=== PATIENT | female | born 1940 | race Caucasian/White ===

== ENCOUNTER → 2016-08-25 | Outpatient (CLI) | payer OTHER ==
[~2016-08-25] MED LIST: COLCPOW2 PO; CYCL1TAB18 PO; ESTR1TAB36 PO; FUR40T PO; GABA300C8 PO; HYDR500T13 PO; LABE100T PO; MAGN400T28 PO; NIFE30TA76 PO; OMEG875C PO; OMEP20CA5 PO; [UNRECOGNIZED DRUG - CODE] PO
[2016-08-25 13:07] LABS: Basophils # (auto) 0 uL; Basophils % (auto) 0.4 % (0.0-2.0); Eosinophils # (auto) 0.1 uL; Eosinophils % (auto) 1.6 % (0.0-7.0); Hematocrit 40.7 % (36.0-46.0); Hemoglobin 12.9 g/dL (12.2-16.2); Lymphocytes # (auto) 1.6 uL; Lymphocytes % (auto) 21.5 % (10.0-50.0); Mean Corpuscular Hemoglobin 29.4 pg (28.0-32.0); Mean Corpuscular Hgb Conc. 31.7 g/dL (32.0-36.0); Mean Corpuscular Volume 92.7 fL (80.0-100.0); Mean Platelet Volume 9.6 fL (7.4-10.4); Monocytes # (auto) 0.6 uL; Monocytes % (auto) 7.8 % (0.0-12.0); Neutrophils # (auto) 5.2 uL; Neutrophils % (auto) 68.7 % (37.0-80.0); Platelet Count (auto) 235 10^3/uL (140-450); Red Cell Distribution Width 13.7 % (11.6-16.0); White Blood Cell 7.6 10^3/uL (4.4-10.8)
[2016-08-25 13:32] LABS: Calcium 9.3 mg/dL (8.5-10.1); Potassium 3.7 mmol/L (3.5-5.1)
[2016-08-25 13:35] LABS: Albumin 3.9 g/dL (3.4-5.0)
[2016-08-25 13:37] LABS: Bilirubin, Total 0.2 mg/dL (0.2-1.0); Total Protein 7.6 g/dL (6.4-8.2)
[2016-08-25 14:31] LABS: Uric Acid 4.7 mg/dL (2.6-6.0)
== END | disposition home or self-care (01) ==
LOC: LAB 11:43
DX: I10 Essential (primary) hypertension (principal); M10.00 Idiopathic gout, unspecified site; M06.9 Rheumatoid arthritis, unspecified; D64.9 Anemia, unspecified; Z79.899 Other long term (current) drug therapy; M25.50 Pain in unspecified joint
CPT/HCPCS: 36415; 80053; 84550; 85025; 85652; 86141; 86200; 86431

== ENCOUNTER → 2016-09-06 | Outpatient (CLI) | payer OTHER ==
[~2016-09-06] VITALS: Ht 165.1 cm; Wt 68.0 kg
[~2016-09-06] MED LIST changes: +ADENOSINE 57 MG in GIVE UN-DILUTED 0 ML IV ONE
== END | disposition home or self-care (01) ==
LOC: XY 08:32
PROVIDERS: ATTEND Internal Medicine Cardiovascular Disease
DX: Z01.818 Encounter for other preprocedural examination (principal); I11.9 Hypertensive heart disease without heart failure; I34.2 Nonrheumatic mitral (valve) stenosis; I35.0 Nonrheumatic aortic (valve) stenosis; I34.0 Nonrheumatic mitral (valve) insufficiency; I07.1 Rheumatic tricuspid insufficiency; I31.3 Pericardial effusion (noninflammatory); I35.8 Other nonrheumatic aortic valve disorders
CPT/HCPCS: 78452; 93017; 93306; A9500; J0153

== ENCOUNTER → 2016-09-30 | Outpatient (CLI) | payer OTHER ==
[~2016-09-30] MED LIST changes: -ADENOSINE 57 MG in GIVE UN-DILUTED 0 ML IV ONE; +FEBU80TA PO; +HYDR-2651 PO
[2016-09-30 10:20] LABS: Basophils # (auto) 0 uL; Basophils % (auto) 0.6 % (0.0-2.0); Eosinophils # (auto) 0.2 uL; Eosinophils % (auto) 2.5 % (0.0-7.0); Hematocrit 35.6 % (36.0-46.0); Hemoglobin 11.8 g/dL (12.2-16.2); Lymphocytes # (auto) 1.6 uL; Lymphocytes % (auto) 21.6 % (10.0-50.0); Mean Corpuscular Hemoglobin 30.7 pg (28.0-32.0); Mean Corpuscular Hgb Conc. 33.2 g/dL (32.0-36.0); Mean Corpuscular Volume 92.5 fL (80.0-100.0); Mean Platelet Volume 9.6 fL (7.4-10.4); Monocytes # (auto) 0.7 uL; Monocytes % (auto) 8.7 % (0.0-12.0); Neutrophils % (auto) 66.6 % (37.0-80.0); Platelet Count (auto) 212 10^3/uL (140-450); Red Cell Distribution Width 14.1 % (11.6-16.0); White Blood Cell 7.5 10^3/uL (4.4-10.8)
[2016-09-30 10:31] LABS: BUN/Creatinine Ratio 16.9; Bilirubin, Total 0.4 mg/dL (0.2-1.0); Calcium 8.5 mg/dL (8.5-10.1); Potassium 3.9 mmol/L (3.5-5.1); Total Protein 7.2 g/dL (6.4-8.2)
[2016-09-30 10:43] LABS: Urine RBC <1 /hpf (0 - 4); Urine Squamous Epithelial Cell FEW /hpf (<5)
[2016-09-30 11:10] LABS: Urine Bilirubin Negative (Negative); Urine Blood Negative /uL (Negative); Urine Color Yellow (Yellow); Urine Glucose Normal (Normal); Urine Ketone Negative (Negative); Urine Nitrite Negative (Negative); Urine Urobilinogen Normal (Negative); Urine pH 5.5 (5.0-8.0)
[2016-09-30 12:22] LABS: INR 1.03 (0.9-1.15); Partial Thromboplastin Time 24.9 sec (22.64-33.71); Prothrombin Time 10.6 sec (9.37-12.3)
== END | disposition home or self-care (01) ==
LOC: LAB 08:57
PROVIDERS: ATTEND Surgery
DX: C50.911 Malignant neoplasm of unspecified site of right female breast (principal); R79.1 Abnormal coagulation profile
CPT/HCPCS: 36415; 80053; 81001; 85025; 85610; 85730

== ENCOUNTER 2016-11-14 06:55 | Day surgery (SDC) | payer OTHER ==
[2016-11-11 10:27] LABS: Basophils # (auto) 0 uL; Basophils % (auto) 0.5 % (0.0-2.0); Eosinophils # (auto) 0.2 uL; Eosinophils % (auto) 2.2 % (0.0-7.0); Hematocrit 39.4 % (36.0-46.0); Hemoglobin 12.8 g/dL (12.2-16.2); Lymphocytes # (auto) 1.4 uL; Mean Corpuscular Hemoglobin 30.2 pg (28.0-32.0); Mean Corpuscular Hgb Conc. 32.5 g/dL (32.0-36.0); Mean Platelet Volume 9.3 fL (7.4-10.4); Monocytes # (auto) 0.7 uL; Monocytes % (auto) 9.1 % (0.0-12.0); Neutrophils # (auto) 5.4 uL; Neutrophils % (auto) 70.2 % (37.0-80.0); Platelet Count (auto) 241 10^3/uL (140-450); Red Cell Distribution Width 14.2 % (11.6-16.0); White Blood Cell 7.6 10^3/uL (4.4-10.8)
[2016-11-11 10:45] LABS: Urine Bilirubin Negative (Negative); Urine Blood Negative /uL (Negative); Urine Color Yellow (Yellow); Urine Glucose Normal (Normal); Urine Ketone Negative (Negative); Urine Nitrite Negative (Negative); Urine RBC 2 /hpf (0 - 4); Urine Squamous Epithelial Cell FEW /hpf (<5); Urine Urobilinogen Normal (Negative); Urine pH 6.5 (5.0-8.0)
[2016-11-11 10:50] LABS: Albumin 4.2 g/dL (3.4-5.0); BUN/Creatinine Ratio 20.9; Bilirubin, Total 0.4 mg/dL (0.2-1.0); Calcium 9.5 mg/dL (8.5-10.1); Potassium 3.9 mmol/L (3.5-5.1); Total Protein 7.6 g/dL (6.4-8.2)
[2016-11-11 10:52] LABS: INR 0.96 (0.9-1.15); Partial Thromboplastin Time 24.5 sec (22.64-33.71); Prothrombin Time 10.4 sec (9.37-12.3)
[~2016-11-14] VITALS: Ht 165.1 cm; Wt 68.0 kg
[~2016-11-14 06:55] MED LIST changes: +CHLO25TA22 PO; -CYCL1TAB18 PO; -ESTR1TAB36 PO; -FUR40T PO; +GABA-497 PO; -GABA300C8 PO; -NIFE30TA76 PO; -OMEG875C PO; -OMEP20CA5 PO; +OMEP20CA74 PO; -[UNRECOGNIZED DRUG - CODE] PO
[2016-11-14] MEDS ORDERED: ceFAZolin 1GM/50ML D5W 100 ML IV ONE (07:15)
[2016-11-14] MEDS ORDERED: fentaNYL CITRATE 100 MCG/2 ML VL ONE (07:53)
[2016-11-14] MEDS ORDERED: MIDAZOLAM HCL 1MG/1ML-2 ML VIAL ONE (07:53)
[2016-11-14] MEDS ORDERED: PROPOFOL 10 MG/ML 20 ML IV ONE (07:53)
[2016-11-14] MEDS ORDERED: SODIUM CHLORIDE LOCK 20 ML ONE (07:53)
[2016-11-14] MEDS ORDERED: ROCURONIUM 10MG/ML 10ML VIAL IV ONE (07:53)
[2016-11-14] MEDS ORDERED: MEPERIDINE HCL (50 MG/ML) 1 ML VIAL ONE (07:53)
[2016-11-14] MEDS: BUPIVACAINE 0.5% P/F INJ 10 ML VIAL ONE ×2 (09:17→09:52)
[2016-11-14] MEDS: LIDOCAINE 1% HCL (LOCAL ANESTH.) INJ 20ML MDV ONE ×2 (09:17→09:52)
[2016-11-14] MEDS ORDERED: METOCLOPRAMIDE HCL 5MG/ml INJ 2ml VIAL IV ONE (10:15)
[2016-11-14] MEDS ORDERED: KETOROLAC TROMETH 30 MG/ML 1ML VIAL IV ONE (10:15)
[2016-11-14] MEDS ORDERED: HYDROmorphone HCL 2 MG/ML VL IV PRN (10:15)
[2016-11-14 11:09] VITALS: BP 161/74
== END 2016-11-14 11:09 | disposition home or self-care (01) ==
LOC: SUR 06:55
PROVIDERS: ATTEND Surgery
DX: D05.11 Intraductal carcinoma in situ of right breast (principal); M19.90 Unspecified osteoarthritis, unspecified site; Z90.710 Acquired absence of both cervix and uterus; E89.0 Postprocedural hypothyroidism
CPT/HCPCS: 19301; 36415; 80053; 81001; 85025; 85610; 85730; 88307; J0690; J2001; J2175; J2250; J2704; J3010; J3490

== ENCOUNTER → 2017-04-19 | Outpatient (CLI) | payer OTHER ==
[2017-04-19 11:52] LABS: Basophils # (auto) 0 uL; Basophils % (auto) 0.5 % (0.0-2.0); Eosinophils # (auto) 0.1 uL; Eosinophils % (auto) 2.2 % (0.0-7.0); Hematocrit 37.5 % (36.0-46.0); Hemoglobin 12.7 g/dL (12.2-16.2); Lymphocytes # (auto) 0.7 uL; Lymphocytes % (auto) 10.8 % (10.0-50.0); Mean Corpuscular Hemoglobin 31.2 pg (28.0-32.0); Mean Corpuscular Hgb Conc. 33.8 g/dL (32.0-36.0); Mean Corpuscular Volume 92.5 fL (80.0-100.0); Mean Platelet Volume 8.3 fL (6.9-10.8); Monocytes # (auto) 0.6 uL; Monocytes % (auto) 9.6 % (0.0-12.0); Neutrophils % (auto) 76.9 % (37.0-80.0); Platelet Count (auto) 165 10^3/uL (140-450); Red Cell Distribution Width 13.5 % (11.8-14.3); White Blood Cell 6.5 10^3/uL (4.4-10.8)
[2017-04-19 12:17] LABS: Albumin 3.8 g/dL (3.4-5.0); BUN/Creatinine Ratio 24.4; Bilirubin, Total 0.4 mg/dL (0.2-1.0); Calcium 8.8 mg/dL (8.5-10.1); Potassium 3.9 mmol/L (3.5-5.1); Total Protein 7.3 g/dL (6.4-8.2)
== END | disposition home or self-care (01) ==
LOC: LAB 11:31
PROVIDERS: ATTEND Internal Medicine
DX: C50.411 Malignant neoplasm of upper-outer quadrant of right female breast (principal)
CPT/HCPCS: 36415; 80053; 83615; 85025

== ENCOUNTER → 2017-04-20 | Outpatient (CLI) | payer OTHER ==
[2017-04-20 10:52] LABS: BUN/Creatinine Ratio 24.8; Bilirubin, Total 0.4 mg/dL (0.2-1.0); Calcium 9.5 mg/dL (8.5-10.1); Magnesium 1.5 mg/dL (1.6-2.6); Phosphorus 3.4 mg/dL (2.5-4.90); Potassium 4.3 mmol/L (3.5-5.1); Total Protein 7.7 g/dL (6.4-8.2); Uric Acid 4.2 mg/dL (2.6-6.0)
== END | disposition home or self-care (01) ==
LOC: LAB 09:53
PROVIDERS: ATTEND Internal Medicine Nephrology
DX: I12.9 Hypertensive chronic kidney disease with stage 1 through stage 4 chronic kidney disease, or unspecified chronic kidney disease (principal); N18.3 Chronic kidney disease, stage 3 (moderate); D63.1 Anemia in chronic kidney disease; M10.9 Gout, unspecified; R80.9 Proteinuria, unspecified
CPT/HCPCS: 36415; 80053; 82043; 82570; 83735; 84100; 84550

== ENCOUNTER → 2017-06-22 | Outpatient (CLI) | payer OTHER ==
[~2017-06-22] MED LIST changes: -HYDR-2651 PO; +HYDR25TA35 PO
[2017-06-22 10:59] LABS: Basophils # (auto) 0 uL; Basophils % (auto) 0.7 % (0.0-2.0); Eosinophils # (auto) 0.3 uL; Eosinophils % (auto) 3.8 % (0.0-7.0); Hematocrit 39.4 % (36.0-46.0); Lymphocytes # (auto) 0.9 uL; Lymphocytes % (auto) 13.3 % (10.0-50.0); Mean Corpuscular Hemoglobin 30.9 pg (28.0-32.0); Mean Corpuscular Hgb Conc. 33.1 g/dL (32.0-36.0); Mean Corpuscular Volume 93.6 fL (80.0-100.0); Mean Platelet Volume 8.3 fL (6.9-10.8); Monocytes # (auto) 0.4 uL; Monocytes % (auto) 6.5 % (0.0-12.0); Neutrophils # (auto) 5.1 uL; Neutrophils % (auto) 75.7 % (37.0-80.0); Platelet Count (auto) 227 10^3/uL (140-450); White Blood Cell 6.7 10^3/uL (4.4-10.8)
[2017-06-22 11:22] LABS: Albumin 3.9 g/dL (3.4-5.0); BUN/Creatinine Ratio 22.8; Bilirubin, Total 0.3 mg/dL (0.2-1.0); Calcium 8.6 mg/dL (8.5-10.1); Total Protein 7.7 g/dL (6.4-8.2)
== END | disposition home or self-care (01) ==
LOC: LAB 10:25
DX: I10 Essential (primary) hypertension (principal); M06.9 Rheumatoid arthritis, unspecified; D64.9 Anemia, unspecified; Z79.899 Other long term (current) drug therapy
CPT/HCPCS: 36415; 80053; 85025; 85652; 86141

== ENCOUNTER → 2017-07-21 | Outpatient (CLI) | payer OTHER ==
[~2017-07-21] MED LIST changes: +CHOL20007 OR; +CHOL20009 PO; +CLON0.1T PO; +FEBU40TA PO; -GABA-497 PO; +GABA300C10 PO; +HYDR-4683 PO; +LETR2.5T PO; +MAGN400T5 PO; +OME20T PO
[2017-07-21 11:29] LABS: Basophils # (auto) 0 uL; Basophils % (auto) 0.4 % (0.0-2.0); Eosinophils # (auto) 0.2 uL; Eosinophils % (auto) 2.4 % (0.0-7.0); Hematocrit 38.3 % (36.0-46.0); Hemoglobin 12.8 g/dL (12.2-16.2); Lymphocytes # (auto) 0.9 uL; Lymphocytes % (auto) 10.7 % (10.0-50.0); Mean Corpuscular Hemoglobin 30.8 pg (28.0-32.0); Mean Corpuscular Hgb Conc. 33.3 g/dL (32.0-36.0); Mean Corpuscular Volume 92.6 fL (80.0-100.0); Monocytes # (auto) 0.6 uL; Monocytes % (auto) 7.3 % (0.0-12.0); Neutrophils # (auto) 6.9 uL; Neutrophils % (auto) 79.2 % (37.0-80.0); Platelet Count (auto) 197 10^3/uL (140-450); Red Blood Cells 4.14 10^6/uL (4.0-5.20); Red Cell Distribution Width 13.4 % (11.8-14.3); White Blood Cell 8.8 10^3/uL (4.4-10.8)
[2017-07-21 11:42] LABS: BUN/Creatinine Ratio 23.3; Bilirubin, Total 0.5 mg/dL (0.2-1.0); Calcium 9.5 mg/dL (8.5-10.1); Magnesium 1.2 mg/dL (1.6-2.6); Potassium 4.3 mmol/L (3.5-5.1); Total Protein 7.4 g/dL (6.4-8.2); Uric Acid 10.3 mg/dL (2.6-6.0)
== END | disposition home or self-care (01) ==
LOC: LAB 10:00
PROVIDERS: ATTEND Internal Medicine Nephrology
DX: C50.411 Malignant neoplasm of upper-outer quadrant of right female breast (principal); R80.9 Proteinuria, unspecified; I12.9 Hypertensive chronic kidney disease with stage 1 through stage 4 chronic kidney disease, or unspecified chronic kidney disease; N18.9 Chronic kidney disease, unspecified
CPT/HCPCS: 36415; 80053; 82043; 82570; 83615; 83735; 84550; 85025

== ENCOUNTER → 2017-08-10 | Outpatient (CLI) | payer OTHER | END | disposition home or self-care (01) | LOC: XY 09:32 | PROVIDERS: ATTEND Internal Medicine | DX: I73.9 Peripheral vascular disease, unspecified (principal) | CPT/HCPCS: 93923; 93925 ==

== ENCOUNTER → 2017-09-04 | Outpatient (CLI) | payer OTHER ==
[2017-09-04 12:34] LABS: Bilirubin, Total 0.5 mg/dL (0.2-1.0); Total Protein 7.6 g/dL (6.4-8.2)
== END | disposition home or self-care (01) ==
LOC: LAB 08:58
PROVIDERS: ATTEND Internal Medicine
DX: E11.22 Type 2 diabetes mellitus with diabetic chronic kidney disease (principal); N18.3 Chronic kidney disease, stage 3 (moderate)
CPT/HCPCS: 36415; 80053; 80061; 83036

== ENCOUNTER → 2017-09-05 | Outpatient (CLI) | payer OTHER | END | disposition home or self-care (01) | LOC: LAB 09:07 | PROVIDERS: ATTEND Internal Medicine | DX: K52.9 Noninfective gastroenteritis and colitis, unspecified (principal) | CPT/HCPCS: 36415; 82565; 84520 ==

== ENCOUNTER 2017-10-05 08:59 | Inpatient (IN) | payer OTHER ==
[2017-09-28 09:53] LABS: Basophils # (auto) 0 uL; Basophils % (auto) 0.5 % (0.0-2.0); Eosinophils # (auto) 0.1 uL; Eosinophils % (auto) 2.1 % (0.0-7.0); Hematocrit 39.9 % (36.0-46.0); Hemoglobin 13.2 g/dL (12.2-16.2); Lymphocytes # (auto) 0.9 uL; Lymphocytes % (auto) 13.2 % (10.0-50.0); Mean Corpuscular Hemoglobin 30.2 pg (28.0-32.0); Mean Corpuscular Hgb Conc. 33.2 g/dL (32.0-36.0); Mean Corpuscular Volume 91.1 fL (80.0-100.0); Monocytes # (auto) 0.5 uL; Monocytes % (auto) 7.8 % (0.0-12.0); Neutrophils % (auto) 76.4 % (37.0-80.0); Nucleated Red Blood Cells % 0.1 %; Platelet Count (auto) 222 10^3/uL (140-450); Red Blood Cells 4.38 10^6/uL (4.0-5.20); Red Cell Distribution Width 13.8 % (11.8-14.3); White Blood Cell 6.6 10^3/uL (4.4-10.8)
[2017-09-28 10:03] LABS: INR 0.99 (0.9-1.15); Prothrombin Time 10.8 sec (9.37-12.3)
[2017-09-28 10:16] LABS: BUN/Creatinine Ratio 24.3; Bilirubin, Total 0.4 mg/dL (0.2-1.0); Calcium 9.6 mg/dL (8.5-10.1); Total Protein 7.9 g/dL (6.4-8.2)
[2017-09-28 10:20] LABS: Urine Bacteria NONE SEEN /hpf (None Seen); Urine Blood Negative /uL (Negative); Urine Specific Gravity 1.017 (1.001-1.035); Urine WBC 2 /hpf (0 - 5)
[~2017-10-05] VITALS: Ht 165.1 cm; Wt 72.6 kg
[~2017-10-05 08:59] MED LIST changes: -CHOL20007 OR; -COLCPOW2 PO; -FEBU40TA PO; -HYDR-4683 PO; -MAGN400T5 PO; -OME20T PO
[2017-10-05] MEDS ORDERED: ONDANSETRON HCL 4 MG/2 ML VIAL ONE (09:05)
[2017-10-05] MEDS ORDERED: HYDROmorphone HCL 2 MG/ML VL ONE (09:05)
[2017-10-05] MEDS ORDERED: PROPOFOL 10 MG/ML 20 ML IV ONE (09:05)
[2017-10-05] MEDS ORDERED: ROCURONIUM 10MG/ML 10ML VIAL IV ONE (09:05)
[2017-10-05] MEDS ORDERED: ETOMIDATE (2MG/ML) 20ML VIAL IV ONE (09:05)
[2017-10-05] MEDS ORDERED: MIDAZOLAM HCL 1MG/1ML-2 ML VIAL ONE (09:05)
[2017-10-05] MEDS ORDERED: ceFOXitin 2GM/100ML 100 ML IV ONE (09:07)
[2017-10-05] MEDS ORDERED: BUPIVACAINE 0.25% INJ 50ML VIAL ONE (12:32)
[2017-10-05] MEDS ORDERED: MANNITOL FTV 25% 12.5 GM/50 ML 0 ML IV ONE (12:33)
[2017-10-05] MEDS ORDERED: fentaNYL CITRATE 10 ML ONE (12:41)
[2017-10-05] MEDS ORDERED: METOCLOPRAMIDE HCL 5MG/ml INJ 2ml VIAL IV ONE (14:00)
[2017-10-05] MEDS ORDERED: ACCU-CHEK COMFORT CURVE STRIP VI ONE (14:00)
[2017-10-05] MEDS ORDERED: MORPHINE SULFATE 4 MG/ML SYR/VIAL IV PRN (14:00)
[2017-10-05] MEDS ORDERED: NEOSTIGMINE 1 MG/ML INJ (10mg/10ML VIAL) ONE (14:25)
[2017-10-05] MEDS ORDERED: GLYCOPYRROLATE 0.2 MG/ML 1ML VIAL ONE (14:25)
[2017-10-05] MEDS ORDERED: ONDANSETRON HCL 4 MG/2 ML VIAL IV PRN (15:00)
[2017-10-05] MEDS ORDERED: ACETAMINOPHEN/CODEINE#3 (300/30mg) TAB PO PRN (15:00)
[2017-10-05] MEDS ORDERED: hydrALAZINE HCL 25 MG TAB PO ONE (15:00)
[2017-10-05] MEDS ORDERED: diphenhdrAMINE HCL 50 MG/1 ML VL IV PRN (15:00)
[2017-10-05] MEDS ORDERED: GABAPENTIN 300 MG CAP PO ONE (15:00)
[2017-10-05] MEDS ORDERED: PANTOPRAZOLE 40 MG TAB PO ONE (15:00)
[2017-10-05 16:45] VITALS: BP 159/75
[2017-10-05 17:01] VITALS: BP 159/75
[2017-10-05] MEDS: MORPHINE SULFATE 4 MG/ML SYR/VIAL IV PRN ×2 (17:13→21:22)
[2017-10-05] MEDS: D5W/SOD CHL 0.45% 1,000 ML IV SCH ×2 (17:15→23:33)
[2017-10-05 17:37] LABS: BUN/Creatinine Ratio 12.8; Calcium 8.7 mg/dL (8.5-10.1); Potassium 3.5 mmol/L (3.5-5.1)
[2017-10-05] MEDS: CEFOXITIN SODIUM 1 GM in D5W 5% 50 ML IV SCH (19:49)
[2017-10-05] MEDS ORDERED: TEMAZEPAM 15 MG CAP PO ONE (21:00)
[2017-10-05] MEDS: LABETALOL HCL 200 MG TAB PO SCH (21:29)
[2017-10-05] MEDS: MAGNESIUM OXIDE 400 MG TAB PO SCH (21:29)
[2017-10-05] MEDS: cloNIDine HCL 0.1 MG TAB PO SCH (21:30)
[2017-10-05] MEDS: hydrALAZINE HCL 25 MG TAB PO SCH (21:31)
[2017-10-05 21:41] VITALS: BP 192/79
[2017-10-05] MEDS: GABAPENTIN 300 MG CAP PO SCH (22:47)
[2017-10-05] MEDS: HYDROcodone-ACET 10/325MG TAB PO PRN (23:30)
[2017-10-06] MEDS: CEFOXITIN SODIUM 1 GM in D5W 5% 50 ML IV SCH ×2 (02:35→09:00)
[2017-10-06] MEDS: MORPHINE SULFATE 4 MG/ML SYR/VIAL IV PRN ×2 (02:35→11:57)
[2017-10-06 04:54] VITALS: BP 158/59
[2017-10-06] MEDS: GABAPENTIN 300 MG CAP PO SCH ×2 (06:33→13:54)
[2017-10-06] MEDS: D5W/SOD CHL 0.45% 1,000 ML IV SCH (06:34)
[2017-10-06] MEDS: hydrALAZINE HCL 25 MG TAB PO SCH ×2 (06:34→13:55)
[2017-10-06] MEDS: HYDROcodone-ACET 10/325MG TAB PO PRN (06:35)
[2017-10-06 08:45] VITALS: BP 164/73
[2017-10-06] MEDS: LABETALOL HCL 200 MG TAB PO SCH (09:16)
[2017-10-06] MEDS: MAGNESIUM OXIDE 400 MG TAB PO SCH (09:16)
[2017-10-06] MEDS: cloNIDine HCL 0.1 MG TAB PO SCH (09:16)
[2017-10-06] MEDS ORDERED: PANTOPRAZOLE 40 MG TAB PO SCH (10:00)
[2017-10-06] MEDS ORDERED: LETROZOLE PO SCH (10:00)
[2017-10-06 10:46] VITALS: BP 164/73
[2017-10-06 13:00] VITALS: BP 146/63
[2017-10-07] MEDS ORDERED: CHOL20007 OR (06:32)
[2017-10-07] MEDS ORDERED: GABA300C10 PO (06:32)
[2017-10-07] MEDS ORDERED: MAGN400T5 PO (06:32)
[2017-10-07] MEDS ORDERED: CLON0.1T PO (06:32)
[2017-10-07] MEDS ORDERED: HYDR25TA35 PO (06:32)
[2017-10-07] MEDS ORDERED: LABE100T PO (06:32)
[2017-10-07] MEDS ORDERED: FEBU80TA PO (06:32)
[2017-10-07] MEDS ORDERED: OME20T PO (06:32)
[2017-10-07] MEDS ORDERED: CHLO25TA22 PO (06:32)
[2017-10-07] MEDS ORDERED: LETR2.5T PO (06:32)
[2017-10-07] MEDS ORDERED: HYDR-4683 PO (06:32)
[2017-10-31] MEDS ORDERED: FEBU40TA PO (15:46)
[2017-10-31] MEDS ORDERED: HYDR-4683 PO (15:48)
== END 2017-10-06 14:10 | disposition home or self-care (01) | DRG 657 ==
LOC: SUR 08:59 → EAST 09:00
PROVIDERS: ADMIT Urology; ATTEND Urology
PROC: 8E0W3CZ Robotic Assisted Procedure of Trunk Region, Percutaneous Approach (ICD-10-PCS; 2017-10-05)
PROC: 07TC4ZZ Resection of Pelvis Lymphatic, Percutaneous Endoscopic Approach (ICD-10-PCS; 2017-10-05)
PROC: 0TT04ZZ Resection of Right Kidney, Percutaneous Endoscopic Approach (ICD-10-PCS; principal; 2017-10-05 12:52)
DX: C64.1 Malignant neoplasm of right kidney, except renal pelvis (principal); N18.4 Chronic kidney disease, stage 4 (severe); E78.5 Hyperlipidemia, unspecified; D64.9 Anemia, unspecified; M10.9 Gout, unspecified; I12.9 Hypertensive chronic kidney disease with stage 1 through stage 4 chronic kidney disease, or unspecified chronic kidney disease; M19.90 Unspecified osteoarthritis, unspecified site; Z85.3 Personal history of malignant neoplasm of breast
CPT/HCPCS: 36415; 80048; 80053; 81001; 85025; 85610; 85730; 86850; 86900; 86901; 87081; J0694; J2250; J2405; J2704; J3490; J7060

== ENCOUNTER 2017-10-06 19:49 | Inpatient (IN) | payer OTHER ==
[~2017-10-06] VITALS: Ht 160 cm; Wt 71.7 kg
[2017-10-06] MEDS ORDERED: SODIUM CHLORIDE 0.9% 1,000 ML IV ONE (20:17)
[2017-10-06] MEDS ORDERED: MORPHINE SULFATE 4 MG/ML SYR/VIAL IV ONE (20:30)
[2017-10-06] MEDS ORDERED: ONDANSETRON HCL 4 MG/2 ML VIAL IV ONE (20:30)
[2017-10-06 20:51] LABS: Basophils # (auto) 0 uL; Basophils % (auto) 0.2 % (0.0-2.0); Eosinophils # (auto) 0 uL; Eosinophils % (auto) 0.1 % (0.0-7.0); Hematocrit 33.9 % (36.0-46.0); Hemoglobin 11.5 g/dL (12.2-16.2); Lymphocytes # (auto) 0.5 uL; Lymphocytes % (auto) 4.4 % (10.0-50.0); Mean Corpuscular Hemoglobin 30.7 pg (28.0-32.0); Mean Corpuscular Hgb Conc. 33.8 g/dL (32.0-36.0); Mean Corpuscular Volume 90.8 fL (80.0-100.0); Monocytes # (auto) 0.7 uL; Monocytes % (auto) 6.6 % (0.0-12.0); Neutrophils # (auto) 9.9 uL; Neutrophils % (auto) 88.7 % (37.0-80.0); Platelet Count (auto) 153 10^3/uL (140-450); Red Blood Cells 3.74 10^6/uL (4.0-5.20); Red Cell Distribution Width 13.5 % (11.8-14.3); White Blood Cell 11.1 10^3/uL (4.4-10.8)
[2017-10-06 21:00] LABS: INR 1.05 (0.9-1.15); Partial Thromboplastin Time 25.9 sec (22.64-33.71); Prothrombin Time 11.4 sec (9.37-12.3)
[2017-10-06 21:04] LABS: Albumin 3.2 g/dL (3.4-5.0); BUN/Creatinine Ratio 10.5; Bilirubin, Total 0.7 mg/dL (0.2-1.0); Calcium 7.4 mg/dL (8.5-10.1); Potassium 3.6 mmol/L (3.5-5.1); Total Protein 6.3 g/dL (6.4-8.2)
[2017-10-06 22:10] LABS: Urine Bacteria NONE SEEN /hpf (None Seen); Urine Blood TRACE /uL (Negative); Urine Specific Gravity 1.018 (1.001-1.035); Urine WBC 1 /hpf (0 - 5)
[2017-10-06] MEDS ORDERED: ACETAMINOPHEN 500 MG TAB PO PRN (23:00)
[2017-10-06] MEDS ORDERED: cefTRIAXone 1GM/10ml IVPUSH 10 ML IV ONE (23:30)
[2017-10-06] MEDS ORDERED: TEMAZEPAM 15 MG CAP PO PRN (23:30)
[2017-10-06] MEDS ORDERED: metroNIDAZOLE 500MG/100ML 100 ML IV ONE (23:30)
[2017-10-07] MEDS: MORPHINE SULFATE 4 MG/ML SYR/VIAL IV PRN ×4 (02:59→20:55)
[2017-10-07] MEDS: ONDANSETRON HCL 4 MG/2 ML VIAL IV PRN ×3 (03:00→15:56)
[2017-10-07 05:00] VITALS: BP 136/67
[2017-10-07 05:34] VITALS: BP 148/69
[2017-10-07] MEDS: metroNIDAZOLE 500MG/100ML 100 ML IV SCH ×3 (06:06→23:08)
[2017-10-07] MEDS ORDERED: HYDR-4683 PO (06:32)
[2017-10-07] MEDS ORDERED: OME20T PO (06:32)
[2017-10-07] MEDS ORDERED: GABA300C10 PO (06:32)
[2017-10-07] MEDS ORDERED: CHLO25TA22 PO (06:32)
[2017-10-07] MEDS ORDERED: FEBU80TA PO (06:32)
[2017-10-07] MEDS ORDERED: HYDR25TA35 PO (06:32)
[2017-10-07] MEDS ORDERED: MAGN400T5 PO (06:32)
[2017-10-07] MEDS ORDERED: LETR2.5T PO (06:32)
[2017-10-07] MEDS ORDERED: CLON0.1T PO (06:32)
[2017-10-07] MEDS ORDERED: LABE100T PO (06:32)
[2017-10-07] MEDS ORDERED: CHOL20007 OR (06:32)
[2017-10-07 07:41] LABS: Basophils # (auto) 0 uL; Basophils % (auto) 0.2 % (0.0-2.0); Eosinophils # (auto) 0.1 uL; Eosinophils % (auto) 0.6 % (0.0-7.0); Hematocrit 32.9 % (36.0-46.0); Hemoglobin 11.2 g/dL (12.2-16.2); Lymphocytes # (auto) 0.9 uL; Lymphocytes % (auto) 8.2 % (10.0-50.0); Mean Corpuscular Hemoglobin 30.7 pg (28.0-32.0); Mean Corpuscular Volume 90.3 fL (80.0-100.0); Monocytes # (auto) 0.9 uL; Monocytes % (auto) 8.1 % (0.0-12.0); Neutrophils # (auto) 9.1 uL; Neutrophils % (auto) 82.9 % (37.0-80.0); Platelet Count (auto) 149 10^3/uL (140-450); Red Blood Cells 3.65 10^6/uL (4.0-5.20); Red Cell Distribution Width 13.4 % (11.8-14.3); White Blood Cell 10.9 10^3/uL (4.4-10.8)
[2017-10-07 07:56] LABS: Albumin 3.3 g/dL (3.4-5.0); Calcium 7.7 mg/dL (8.5-10.1); Potassium 3.2 mmol/L (3.5-5.1)
[2017-10-07 07:59] LABS: BUN/Creatinine Ratio 12.7
[2017-10-07 08:02] LABS: Bilirubin, Total 0.3 mg/dL (0.2-1.0); Total Protein 6.4 g/dL (6.4-8.2)
[2017-10-07 09:00] VITALS: BP 136/70
[2017-10-07] MEDS ORDERED: POTASSIUM CHL 20 Meq TABLET PO ONE (09:15)
[2017-10-07] MEDS: cefTRIAXone 1GM/10ml IVPUSH 10 ML IV SCH (09:21)
[2017-10-07] MEDS: SOD CHL 0.9%/ KCL 20MEQ 1,000 ML IV SCH ×2 (12:16→18:35)
[2017-10-07] MEDS: HYDROcodone-ACET 5/325MG TAB PO PRN (12:16)
[2017-10-07 13:00] VITALS: BP 128/57
[2017-10-07 16:42] VITALS: BP 124/59
[2017-10-07 21:32] VITALS: BP 108/62
[2017-10-08] MEDS: HYDROcodone-ACET 5/325MG TAB PO PRN ×4 (00:04→23:07)
[2017-10-08] MEDS: SOD CHL 0.9%/ KCL 20MEQ 1,000 ML IV SCH (02:55)
[2017-10-08 05:00] VITALS: BP 163/71
[2017-10-08] MEDS: metroNIDAZOLE 500MG/100ML 100 ML IV SCH ×3 (05:37→23:04)
[2017-10-08] MEDS ORDERED: cloNIDine HCL 0.1 MG TAB PO ONE (06:45)
[2017-10-08] MEDS ORDERED: cloNIDine HCL 0.1 MG TAB ONE (06:49)
[2017-10-08 06:53] LABS: Basophils # (auto) 0 uL; Basophils % (auto) 0.3 % (0.0-2.0); Eosinophils # (auto) 0.2 uL; Eosinophils % (auto) 2.4 % (0.0-7.0); Hematocrit 32.4 % (36.0-46.0); Hemoglobin 10.9 g/dL (12.2-16.2); Lymphocytes # (auto) 0.9 uL; Lymphocytes % (auto) 10.2 % (10.0-50.0); Mean Corpuscular Hemoglobin 30.9 pg (28.0-32.0); Mean Corpuscular Hgb Conc. 33.8 g/dL (32.0-36.0); Mean Corpuscular Volume 91.4 fL (80.0-100.0); Monocytes # (auto) 0.9 uL; Monocytes % (auto) 10.3 % (0.0-12.0); Neutrophils % (auto) 76.8 % (37.0-80.0); Platelet Count (auto) 165 10^3/uL (140-450); Red Blood Cells 3.54 10^6/uL (4.0-5.20); Red Cell Distribution Width 13.8 % (11.8-14.3); White Blood Cell 9.1 10^3/uL (4.4-10.8)
[2017-10-08 07:13] LABS: Albumin 3.1 g/dL (3.4-5.0); BUN/Creatinine Ratio 14.6; Bilirubin, Total 0.3 mg/dL (0.2-1.0); Phosphorus 3.1 mg/dL (2.5-4.90); Total Protein 6.3 g/dL (6.4-8.2)
[2017-10-08 08:38] VITALS: BP 168/82
[2017-10-08] MEDS ORDERED: MILK OF MAGNESIA 30ML SUSP PO ONE (09:00)
[2017-10-08] MEDS ORDERED: BISACODYL 5 MG EC TAB PO ONE (10:00)
[2017-10-08] MEDS: cefTRIAXone 1GM/10ml IVPUSH 10 ML IV SCH (10:22)
[2017-10-08] MEDS: LABETALOL HCL 200 MG TAB PO SCH ×2 (10:22→23:08)
[2017-10-08 11:08] LABS: Amylase 74 U/L (25-115); Lipase 331 U/L (73-393)
[2017-10-08] MEDS ORDERED: DEXTROSE (50%) 50ML SYRG IV PRN (11:15)
[2017-10-08] MEDS: ACCU-CHEK COMFORT CURVE STRIP VI SCH ×3 (11:30→22:00)
[2017-10-08] MEDS: InsuLIN REG 1unit/0.01ml Soln (100units/ml) SC SCH ×3 (11:30→22:00)
[2017-10-08 13:38] VITALS: BP 155/70
[2017-10-08] MEDS: SODIUM BICARBONATE 50ML VIAL 50 ML in SOD CHL 0.45% 1,000 ML IV SCH ×2 (13:59→20:45)
[2017-10-08] MEDS: hydrALAZINE HCL 25 MG TAB PO SCH ×2 (14:08→23:08)
[2017-10-08 16:26] VITALS: BP 132/72
[2017-10-08] MEDS: INSULIN 70/30 1unit/0.01ml Susp (100units/ml) SC SCH (17:51)
[2017-10-08 22:00] VITALS: BP 161/81
[2017-10-08] MEDS: cloNIDine HCL 0.1 MG TAB PO SCH (22:00)
[2017-10-09] MEDS: cloNIDine HCL 0.1 MG TAB PO SCH ×2 (00:17→10:20)
[2017-10-09 05:00] VITALS: BP 154/68
[2017-10-09] MEDS: hydrALAZINE HCL 25 MG TAB PO SCH ×2 (06:00→15:45)
[2017-10-09] MEDS: metroNIDAZOLE 500MG/100ML 100 ML IV SCH ×2 (06:00→14:00)
[2017-10-09 06:34] LABS: Basophils # (auto) 0 uL; Basophils % (auto) 0.4 % (0.0-2.0); Eosinophils # (auto) 0.2 uL; Eosinophils % (auto) 2.6 % (0.0-7.0); Hematocrit 30.7 % (36.0-46.0); Hemoglobin 10.4 g/dL (12.2-16.2); Lymphocytes # (auto) 0.7 uL; Mean Corpuscular Hgb Conc. 33.9 g/dL (32.0-36.0); Mean Corpuscular Volume 91.4 fL (80.0-100.0); Neutrophils # (auto) 6.5 uL; Nucleated Red Blood Cells % 0.1 %; Platelet Count (auto) 180 10^3/uL (140-450); Red Blood Cells 3.36 10^6/uL (4.0-5.20); Red Cell Distribution Width 13.7 % (11.8-14.3); White Blood Cell 8.4 10^3/uL (4.4-10.8)
[2017-10-09 06:50] LABS: Albumin 2.9 g/dL (3.4-5.0); BUN/Creatinine Ratio 17.1; Bilirubin, Total 0.4 mg/dL (0.2-1.0); Potassium 3.8 mmol/L (3.5-5.1); Total Protein 6.1 g/dL (6.4-8.2)
[2017-10-09] MEDS: InsuLIN REG 1unit/0.01ml Soln (100units/ml) SC SCH ×2 (07:00→12:00)
[2017-10-09] MEDS: ACCU-CHEK COMFORT CURVE STRIP VI SCH ×2 (07:04→11:50)
[2017-10-09] MEDS: SODIUM BICARBONATE 50ML VIAL 50 ML in SOD CHL 0.45% 1,000 ML IV SCH (08:00)
[2017-10-09] MEDS: INSULIN 70/30 1unit/0.01ml Susp (100units/ml) SC SCH (08:00)
[2017-10-09 09:06] VITALS: BP 165/80
[2017-10-09] MEDS: cefTRIAXone 1GM/10ml IVPUSH 10 ML IV SCH (10:18)
[2017-10-09] MEDS: LABETALOL HCL 200 MG TAB PO SCH (10:19)
[2017-10-31] MEDS ORDERED: FEBU40TA PO (15:46)
[2017-10-31] MEDS ORDERED: HYDR-4683 PO (15:48)
== END 2017-10-09 16:35 | disposition home or self-care (01) | DRG 438 ==
LOC: EDBD 19:49 → ER 19:49 → OVERFLOW 19:50 → MERGE 19:50 → CENTRAL 10-07 01:25
PROVIDERS: ADMIT Nurse Practitioner Family; ATTEND Family Medicine
DX: K85.91 Acute pancreatitis with uninfected necrosis, unspecified (principal); N17.0 Acute kidney failure with tubular necrosis; E44.0 Moderate protein-calorie malnutrition; N18.4 Chronic kidney disease, stage 4 (severe); E11.22 Type 2 diabetes mellitus with diabetic chronic kidney disease; I12.9 Hypertensive chronic kidney disease with stage 1 through stage 4 chronic kidney disease, or unspecified chronic kidney disease; N18.3 Chronic kidney disease, stage 3 (moderate); Z85.528 Personal history of other malignant neoplasm of kidney; E78.5 Hyperlipidemia, unspecified; E87.6 Hypokalemia; K57.90 Diverticulosis of intestine, part unspecified, without perforation or abscess without bleeding; Z90.5 Acquired absence of kidney; Z82.49 Family history of ischemic heart disease and other diseases of the circulatory system
CPT/HCPCS: 36415; 51702; 74176; 80053; 81001; 82150; 82306; 82962; 83036; 83690; 83735; 83970; 84100; 84550; 85025; 85610; 85730; 87081; 96361; 96365; 96375; 97163; J2405; J3490

== ENCOUNTER → 2017-11-16 | Outpatient (CLI) | payer OTHER ==
[~2017-11-16] MED LIST changes: +FEBU40TA PO; -FEBU80TA PO; +HYDR-4683 PO; -HYDR500T13 PO; -MAGN400T28 PO; +MAGN400T5 PO
[2017-11-16 11:29] LABS: Albumin 3.6 g/dL (3.4-5.0); BUN/Creatinine Ratio 20.9; Bilirubin, Total 0.5 mg/dL (0.2-1.0); Calcium 8.2 mg/dL (8.5-10.1); Phosphorus 3.9 mg/dL (2.5-4.90); Total Protein 7.2 g/dL (6.4-8.2)
[2017-11-16 11:37] LABS: Basophils # (auto) 0.1 uL; Basophils % (auto) 0.8 % (0.0-2.0); Eosinophils # (auto) 0.1 uL; Eosinophils % (auto) 1.9 % (0.0-7.0); Hematocrit 35.5 % (36.0-46.0); Hemoglobin 11.7 g/dL (12.2-16.2); Lymphocytes # (auto) 0.8 uL; Lymphocytes % (auto) 12.1 % (10.0-50.0); Mean Corpuscular Hemoglobin 30.2 pg (28.0-32.0); Mean Corpuscular Hgb Conc. 33.1 g/dL (32.0-36.0); Mean Corpuscular Volume 91.3 fL (80.0-100.0); Monocytes # (auto) 0.7 uL; Monocytes % (auto) 10.8 % (0.0-12.0); Neutrophils # (auto) 5.1 uL; Neutrophils % (auto) 74.4 % (37.0-80.0); Platelet Count (auto) 211 10^3/uL (140-450); Red Blood Cells 3.88 10^6/uL (4.0-5.20); Red Cell Distribution Width 14.7 % (11.8-14.3); White Blood Cell 6.9 10^3/uL (4.4-10.8)
== END | disposition home or self-care (01) ==
LOC: LAB 10:21
PROVIDERS: ATTEND Internal Medicine
DX: I12.9 Hypertensive chronic kidney disease with stage 1 through stage 4 chronic kidney disease, or unspecified chronic kidney disease (principal); E11.22 Type 2 diabetes mellitus with diabetic chronic kidney disease; N18.4 Chronic kidney disease, stage 4 (severe); E78.00 Pure hypercholesterolemia, unspecified; Z85.3 Personal history of malignant neoplasm of breast
CPT/HCPCS: 36415; 80053; 83970; 84100; 84550; 85025

== ENCOUNTER → 2017-12-01 | Outpatient (CLI) | payer OTHER ==
[2017-12-01 10:52] LABS: Basophils # (auto) 0 uL; Basophils % (auto) 0.5 % (0.0-2.0); Eosinophils # (auto) 0.2 uL; Hematocrit 35.9 % (36.0-46.0); Lymphocytes # (auto) 1.1 uL; Lymphocytes % (auto) 13.2 % (10.0-50.0); Mean Corpuscular Hemoglobin 30.8 pg (28.0-32.0); Mean Corpuscular Hgb Conc. 33.4 g/dL (32.0-36.0); Mean Corpuscular Volume 92.2 fL (80.0-100.0); Monocytes # (auto) 0.7 uL; Monocytes % (auto) 8.7 % (0.0-12.0); Neutrophils # (auto) 6.1 uL; Neutrophils % (auto) 75.6 % (37.0-80.0); Platelet Count (auto) 212 10^3/uL (140-450); Red Blood Cells 3.89 10^6/uL (4.0-5.20); Red Cell Distribution Width 14.6 % (11.8-14.3); White Blood Cell 8.1 10^3/uL (4.4-10.8)
[2017-12-01 11:39] LABS: Albumin 3.8 g/dL (3.4-5.0); BUN/Creatinine Ratio 16.9; Bilirubin, Total 0.4 mg/dL (0.2-1.0); Calcium 9.3 mg/dL (8.5-10.1); Potassium 4.7 mmol/L (3.5-5.1); Total Protein 7.6 g/dL (6.4-8.2)
== END | disposition home or self-care (01) ==
LOC: LAB 10:28
PROVIDERS: ATTEND Internal Medicine
DX: C50.411 Malignant neoplasm of upper-outer quadrant of right female breast (principal); I12.9 Hypertensive chronic kidney disease with stage 1 through stage 4 chronic kidney disease, or unspecified chronic kidney disease; E11.22 Type 2 diabetes mellitus with diabetic chronic kidney disease; N18.4 Chronic kidney disease, stage 4 (severe); E78.00 Pure hypercholesterolemia, unspecified; E78.5 Hyperlipidemia, unspecified; Z79.899 Other long term (current) drug therapy
CPT/HCPCS: 36415; 80053; 83615; 85025

== ENCOUNTER → 2018-01-17 | Outpatient (CLI) | payer OTHER ==
[2018-01-17 10:31] LABS: Basophils # (auto) 0.1 uL; Basophils % (auto) 0.8 % (0.0-2.0); Eosinophils # (auto) 0.1 uL; Eosinophils % (auto) 1.5 % (0.0-7.0); Hematocrit 36.2 % (36.0-46.0); Hemoglobin 12.4 g/dL (12.2-16.2); Lymphocytes % (auto) 12.3 % (10.0-50.0); Mean Corpuscular Hemoglobin 31.3 pg (28.0-32.0); Mean Corpuscular Hgb Conc. 34.2 g/dL (32.0-36.0); Mean Corpuscular Volume 91.8 fL (80.0-100.0); Monocytes # (auto) 0.7 uL; Monocytes % (auto) 8.9 % (0.0-12.0); Neutrophils % (auto) 76.5 % (37.0-80.0); Nucleated Red Blood Cells % 0.1 %; Platelet Count (auto) 212 10^3/uL (140-450); Red Blood Cells 3.94 10^6/uL (4.0-5.20); Red Cell Distribution Width 13.8 % (11.8-14.3); White Blood Cell 7.8 10^3/uL (4.4-10.8)
[2018-01-17 10:53] LABS: Albumin 3.9 g/dL (3.4-5.0); BUN/Creatinine Ratio 20.8; Bilirubin, Total 0.3 mg/dL (0.2-1.0); Phosphorus 4.2 mg/dL (2.5-4.90); Potassium 4.8 mmol/L (3.5-5.1); Total Protein 7.6 g/dL (6.4-8.2)
== END | disposition home or self-care (01) ==
LOC: LAB 10:02
PROVIDERS: ATTEND Internal Medicine
DX: I12.9 Hypertensive chronic kidney disease with stage 1 through stage 4 chronic kidney disease, or unspecified chronic kidney disease (principal); E11.22 Type 2 diabetes mellitus with diabetic chronic kidney disease; N18.4 Chronic kidney disease, stage 4 (severe); E78.5 Hyperlipidemia, unspecified; I25.10 Atherosclerotic heart disease of native coronary artery without angina pectoris; Z79.899 Other long term (current) drug therapy
CPT/HCPCS: 36415; 80053; 83036; 83721; 84100; 85025

== ENCOUNTER → 2018-03-05 | Outpatient (CLI) | payer OTHER ==
[~2018-03-05] MED LIST changes: +HYDR-4296 PO; -HYDR25TA35 PO
[2018-03-05 11:00] LABS: Protein, Urine 71.9 mg/dL (0.0-11.9)
[2018-03-05 11:08] LABS: Albumin 3.9 g/dL (3.4-5.0); BUN/Creatinine Ratio 17.1; Bilirubin, Total 0.3 mg/dL (0.2-1.0); Calcium 8.5 mg/dL (8.5-10.1); Magnesium 1.8 mg/dL (1.6-2.6); Phosphorus 2.6 mg/dL (2.5-4.90); Potassium 4.7 mmol/L (3.5-5.1); Total Protein 7.3 g/dL (6.4-8.2); Uric Acid 5.1 mg/dL (2.6-6.0)
== END | disposition home or self-care (01) ==
LOC: LAB 09:30
PROVIDERS: ATTEND Internal Medicine Nephrology
DX: E83.39 Other disorders of phosphorus metabolism (principal); I12.9 Hypertensive chronic kidney disease with stage 1 through stage 4 chronic kidney disease, or unspecified chronic kidney disease; N18.3 Chronic kidney disease, stage 3 (moderate); E83.2 Disorders of zinc metabolism; M10.9 Gout, unspecified; R80.9 Proteinuria, unspecified
CPT/HCPCS: 36415; 80053; 82570; 83735; 83970; 84100; 84156; 84550

== ENCOUNTER → 2018-03-07 | Outpatient (CLI) | payer OTHER | END | disposition home or self-care (01) | LOC: XYW 09:50 | PROVIDERS: ATTEND Internal Medicine | DX: I31.3 Pericardial effusion (noninflammatory) (principal); Z90.710 Acquired absence of both cervix and uterus; Z88.1 Allergy status to other antibiotic agents | CPT/HCPCS: 93306 ==

== ENCOUNTER → 2018-04-23 | Outpatient (CLI) | payer OTHER ==
[~2018-04-23] MED LIST changes: -LABE100T PO; +LABE100T4 PO
[2018-04-23 10:46] LABS: BUN/Creatinine Ratio 19.4; Calcium 8.9 mg/dL (8.5-10.1); Potassium 5.1 mmol/L (3.5-5.1)
== END | disposition home or self-care (01) ==
LOC: LAB 09:48
PROVIDERS: ATTEND Urology
DX: C64.9 Malignant neoplasm of unspecified kidney, except renal pelvis (principal); I12.9 Hypertensive chronic kidney disease with stage 1 through stage 4 chronic kidney disease, or unspecified chronic kidney disease; N18.4 Chronic kidney disease, stage 4 (severe)
CPT/HCPCS: 36415; 80048

== ENCOUNTER → 2018-04-26 | Outpatient (CLI) | payer OTHER | END | disposition home or self-care (01) | LOC: LAB 14:23 | PROVIDERS: ATTEND Urology | DX: N39.0 Urinary tract infection, site not specified (principal) | CPT/HCPCS: 87086 ==

== ENCOUNTER → 2018-05-04 | Outpatient (CLI) | payer OTHER ==
[2018-05-04 11:20] LABS: Basophils # (auto) 0 uL; Basophils % (auto) 0.7 % (0.0-2.0); Eosinophils # (auto) 0.1 uL; Eosinophils % (auto) 2.2 % (0.0-7.0); Hematocrit 34.6 % (36.0-46.0); Hemoglobin 11.5 g/dL (12.2-16.2); Lymphocytes # (auto) 1.2 uL; Lymphocytes % (auto) 17.8 % (10.0-50.0); Mean Corpuscular Hemoglobin 30.5 pg (28.0-32.0); Mean Corpuscular Hgb Conc. 33.1 g/dL (32.0-36.0); Monocytes # (auto) 0.6 uL; Monocytes % (auto) 9.1 % (0.0-12.0); Neutrophils # (auto) 4.6 uL; Neutrophils % (auto) 70.2 % (37.0-80.0); Nucleated Red Blood Cells % 0.1 %; Platelet Count (auto) 235 10^3/uL (140-450); Red Blood Cells 3.76 10^6/uL (4.0-5.20); Red Cell Distribution Width 13.4 % (11.8-14.3); White Blood Cell 6.6 10^3/uL (4.4-10.8)
[2018-05-04 11:29] LABS: Albumin 3.9 g/dL (3.4-5.0); BUN/Creatinine Ratio 19.5; Calcium 9.4 mg/dL (8.5-10.1); Magnesium 1.9 mg/dL (1.6-2.6); Potassium 5.1 mmol/L (3.5-5.1)
[2018-05-04 11:42] LABS: Bilirubin, Total 0.3 mg/dL (0.2-1.0); Total Protein 7.6 g/dL (6.4-8.2)
[2018-05-04 20:08] LABS: Protein, Urine 52.4 mg/dL (0.0-11.9)
== END | disposition home or self-care (01) ==
LOC: LAB 10:22
PROVIDERS: ATTEND Internal Medicine Nephrology
DX: E83.40 Disorders of magnesium metabolism, unspecified (principal); I12.9 Hypertensive chronic kidney disease with stage 1 through stage 4 chronic kidney disease, or unspecified chronic kidney disease; E11.22 Type 2 diabetes mellitus with diabetic chronic kidney disease; N18.4 Chronic kidney disease, stage 4 (severe)
CPT/HCPCS: 36415; 80053; 82570; 83735; 84156; 85025

== ENCOUNTER → 2018-05-14 | Outpatient (CLI) | payer OTHER ==
[2018-05-14 11:29] LABS: Cholesterol 150 mg/dL (< 200); HDL Cholesterol 58 mg/dL (40-59); LDL Cholesterol 79 mg/dL (< 100); Triglycerides 159 mg/dL (< 150)
== END | disposition home or self-care (01) ==
LOC: LAB 09:28
PROVIDERS: ATTEND Internal Medicine
DX: E11.9 Type 2 diabetes mellitus without complications (principal); E78.00 Pure hypercholesterolemia, unspecified
CPT/HCPCS: 36415; 80061; 83036

== ENCOUNTER → 2018-06-08 | Outpatient (CLI) | payer OTHER ==
[2018-06-08 10:40] LABS: BUN/Creatinine Ratio 26.6; Calcium 9.3 mg/dL (8.5-10.1); Magnesium 1.5 mg/dL (1.6-2.6); Potassium 5.3 mmol/L (3.5-5.1)
[2018-06-08 10:46] LABS: Albumin 4.3 g/dL (3.4-5.0); Bilirubin, Total 0.3 mg/dL (0.2-1.0); Phosphorus 3.7 mg/dL (2.5-4.90); Total Protein 7.9 g/dL (6.4-8.2); Uric Acid 5.3 mg/dL (2.6-6.0)
== END | disposition home or self-care (01) ==
LOC: LAB 08:10
PROVIDERS: ATTEND Internal Medicine Nephrology
DX: E13.22 Other specified diabetes mellitus with diabetic chronic kidney disease (principal); N18.3 Chronic kidney disease, stage 3 (moderate); E21.3 Hyperparathyroidism, unspecified; E78.5 Hyperlipidemia, unspecified; M10.9 Gout, unspecified
CPT/HCPCS: 36415; 80053; 80061; 82043; 82570; 83036; 83735; 83970; 84100; 84550

== ENCOUNTER → 2018-06-12 | Outpatient (CLI) | payer OTHER ==
[2018-06-12 11:18] LABS: Basophils # (auto) 0 uL; Basophils % (auto) 0.7 % (0.0-2.0); Eosinophils # (auto) 0.1 uL; Eosinophils % (auto) 1.4 % (0.0-7.0); Hematocrit 35.6 % (36.0-46.0); Hemoglobin 11.8 g/dL (12.2-16.2); Lymphocytes # (auto) 0.9 uL; Lymphocytes % (auto) 15.7 % (10.0-50.0); Mean Corpuscular Hemoglobin 30.4 pg (28.0-32.0); Mean Corpuscular Hgb Conc. 33.1 g/dL (32.0-36.0); Mean Corpuscular Volume 91.9 fL (80.0-100.0); Monocytes # (auto) 0.4 uL; Monocytes % (auto) 7.5 % (0.0-12.0); Neutrophils # (auto) 4.4 uL; Neutrophils % (auto) 74.7 % (37.0-80.0); Platelet Count (auto) 209 10^3/uL (140-450); Red Blood Cells 3.88 10^6/uL (4.0-5.20); Red Cell Distribution Width 12.9 % (11.8-14.3); White Blood Cell 5.9 10^3/uL (4.4-10.8)
[2018-06-12 12:20] LABS: Albumin 4.2 g/dL (3.4-5.0); Calcium 9.8 mg/dL (8.5-10.1); Potassium 5.2 mmol/L (3.5-5.1)
[2018-06-12 12:26] LABS: BUN/Creatinine Ratio 24.5; Bilirubin, Total 0.4 mg/dL (0.2-1.0); Total Protein 7.5 g/dL (6.4-8.2)
== END | disposition home or self-care (01) ==
LOC: LAB 10:02
PROVIDERS: ATTEND Internal Medicine
DX: C50.411 Malignant neoplasm of upper-outer quadrant of right female breast (principal)
CPT/HCPCS: 36415; 80053; 83615; 85025

== ENCOUNTER → 2018-07-02 | Outpatient (CLI) | payer OTHER ==
[2018-07-02 10:39] LABS: Potassium 4.4 mmol/L (3.5-5.1)
[2018-07-02 10:47] LABS: BUN/Creatinine Ratio 18.6; Calcium 9.3 mg/dL (8.5-10.1)
== END | disposition home or self-care (01) ==
LOC: LAB 09:21
PROVIDERS: ATTEND Internal Medicine
DX: E78.5 Hyperlipidemia, unspecified (principal); I12.9 Hypertensive chronic kidney disease with stage 1 through stage 4 chronic kidney disease, or unspecified chronic kidney disease; N18.3 Chronic kidney disease, stage 3 (moderate)
CPT/HCPCS: 36415; 80048

== ENCOUNTER → 2018-07-09 | Outpatient (CLI) | payer OTHER ==
[2018-07-09 08:49] LABS: Basophils # (auto) 0 uL; Basophils % (auto) 0.6 % (0.0-2.0); Eosinophils # (auto) 0.1 uL; Eosinophils % (auto) 1.5 % (0.0-7.0); Hematocrit 35.9 % (36.0-46.0); Lymphocytes # (auto) 0.9 uL; Lymphocytes % (auto) 11.2 % (10.0-50.0); Mean Corpuscular Hemoglobin 30.8 pg (28.0-32.0); Mean Corpuscular Hgb Conc. 33.5 g/dL (32.0-36.0); Mean Corpuscular Volume 91.9 fL (80.0-100.0); Monocytes # (auto) 0.7 uL; Monocytes % (auto) 8.2 % (0.0-12.0); Neutrophils # (auto) 6.3 uL; Neutrophils % (auto) 78.5 % (37.0-80.0); Platelet Count (auto) 237 10^3/uL (140-450); Red Blood Cells 3.91 10^6/uL (4.0-5.20); Red Cell Distribution Width 13.4 % (11.8-14.3)
[2018-07-09 09:21] LABS: Potassium 4.5 mmol/L (3.5-5.1); Protein, Urine 77.7 mg/dL (0.0-11.9)
[2018-07-09 09:28] LABS: Albumin 4.1 g/dL (3.4-5.0); BUN/Creatinine Ratio 16.5; Bilirubin, Total 0.4 mg/dL (0.2-1.0); Calcium 8.8 mg/dL (8.5-10.1); Magnesium 1.6 mg/dL (1.6-2.6); Phosphorus 3.6 mg/dL (2.5-4.90); Total Protein 7.9 g/dL (6.4-8.2)
== END | disposition home or self-care (01) ==
LOC: LAB 08:28
PROVIDERS: ATTEND Internal Medicine Nephrology
DX: I12.9 Hypertensive chronic kidney disease with stage 1 through stage 4 chronic kidney disease, or unspecified chronic kidney disease (principal); E11.22 Type 2 diabetes mellitus with diabetic chronic kidney disease; N18.3 Chronic kidney disease, stage 3 (moderate); D63.1 Anemia in chronic kidney disease; E21.3 Hyperparathyroidism, unspecified; R80.9 Proteinuria, unspecified
CPT/HCPCS: 36415; 80053; 82570; 83735; 83970; 84100; 84156; 85025

== ENCOUNTER → 2018-09-10 | Outpatient (CLI) | payer OTHER ==
[2018-09-10 10:17] LABS: Albumin 3.7 g/dL (3.4-5.0); Potassium 4.1 mmol/L (3.5-5.1); Uric Acid 5.4 mg/dL (2.6-6.0)
[2018-09-10 10:20] LABS: BUN/Creatinine Ratio 19.4; Bilirubin, Total 0.3 mg/dL (0.2-1.0); Protein, Urine 123.5 mg/dL (0.0-11.9); Total Protein 7.2 g/dL (6.4-8.2)
[2018-09-10 10:32] LABS: Basophils # (auto) 0 uL; Basophils % (auto) 0.7 % (0.0-2.0); Eosinophils # (auto) 0.2 uL; Eosinophils % (auto) 2.9 % (0.0-7.0); Hematocrit 33.3 % (36.0-46.0); Lymphocytes # (auto) 1.2 uL; Lymphocytes % (auto) 18.4 % (10.0-50.0); Mean Corpuscular Hgb Conc. 33.2 g/dL (32.0-36.0); Mean Corpuscular Volume 90.4 fL (80.0-100.0); Monocytes # (auto) 0.6 uL; Monocytes % (auto) 8.5 % (0.0-12.0); Neutrophils # (auto) 4.6 uL; Neutrophils % (auto) 69.5 % (37.0-80.0); Platelet Count (auto) 229 10^3/uL (140-450); Red Blood Cells 3.68 10^6/uL (4.0-5.20); Red Cell Distribution Width 13.4 % (11.8-14.3); White Blood Cell 6.6 10^3/uL (4.4-10.8)
== END | disposition home or self-care (01) ==
LOC: LAB 09:00
PROVIDERS: ATTEND Internal Medicine
DX: E11.22 Type 2 diabetes mellitus with diabetic chronic kidney disease (principal); N18.4 Chronic kidney disease, stage 4 (severe); E55.9 Vitamin D deficiency, unspecified; E21.3 Hyperparathyroidism, unspecified; M10.9 Gout, unspecified; D63.1 Anemia in chronic kidney disease; R80.9 Proteinuria, unspecified
CPT/HCPCS: 36415; 80053; 82306; 82570; 82728; 83036; 83970; 84156; 84550; 85025

== ENCOUNTER → 2018-10-25 | Outpatient (CLI) | payer OTHER ==
[2018-10-25 09:32] LABS: BUN/Creatinine Ratio 17.5; Calcium 8.9 mg/dL (8.5-10.1); Potassium 4.7 mmol/L (3.5-5.1)
== END | disposition home or self-care (01) ==
LOC: LAB 07:29
PROVIDERS: ATTEND Urology
DX: C64.1 Malignant neoplasm of right kidney, except renal pelvis (principal); I12.9 Hypertensive chronic kidney disease with stage 1 through stage 4 chronic kidney disease, or unspecified chronic kidney disease; N18.4 Chronic kidney disease, stage 4 (severe)
CPT/HCPCS: 36415; 80048

== ENCOUNTER → 2018-11-21 | Outpatient (CLI) | payer OTHER ==
[2018-11-21 09:31] LABS: Basophils # (auto) 0.1 uL; Basophils % (auto) 0.9 % (0.0-2.0); Eosinophils # (auto) 0.2 uL; Eosinophils % (auto) 2.5 % (0.0-7.0); Hemoglobin 11.9 g/dL (12.2-16.2); Lymphocytes # (auto) 0.9 uL; Mean Corpuscular Hemoglobin 29.8 pg (28.0-32.0); Mean Corpuscular Volume 90.4 fL (80.0-100.0); Monocytes # (auto) 0.5 uL; Neutrophils # (auto) 4.6 uL; Neutrophils % (auto) 73.6 % (37.0-80.0); Platelet Count (auto) 228 10^3/uL (140-450); Red Blood Cells 3.98 10^6/uL (4.0-5.20); Red Cell Distribution Width 14.1 % (11.8-14.3); White Blood Cell 6.3 10^3/uL (4.4-10.8)
[2018-11-21 09:54] LABS: Protein, Urine 149.7 mg/dL (0.0-11.9)
[2018-11-21 09:56] LABS: Potassium 4.5 mmol/L (3.5-5.1)
[2018-11-21 10:03] LABS: Albumin 3.7 g/dL (3.4-5.0); BUN/Creatinine Ratio 21.4; Bilirubin, Total 0.3 mg/dL (0.2-1.0); Calcium 9.4 mg/dL (8.5-10.1); Phosphorus 4.2 mg/dL (2.5-4.90); Total Protein 7.1 g/dL (6.4-8.2)
== END | disposition home or self-care (01) ==
LOC: LAB 09:18
PROVIDERS: ATTEND Internal Medicine Nephrology
DX: E21.3 Hyperparathyroidism, unspecified (principal); R80.9 Proteinuria, unspecified; I12.9 Hypertensive chronic kidney disease with stage 1 through stage 4 chronic kidney disease, or unspecified chronic kidney disease; N18.3 Chronic kidney disease, stage 3 (moderate)
CPT/HCPCS: 36415; 80053; 82570; 83970; 84100; 84156; 85025

== ENCOUNTER → 2018-12-10 | Outpatient (CLI) | payer OTHER | END | disposition home or self-care (01) | LOC: LAB 12:02 | PROVIDERS: ATTEND Internal Medicine | DX: E11.9 Type 2 diabetes mellitus without complications (principal); R07.89 Other chest pain | CPT/HCPCS: 36415; 83036; 84439; 84443 ==

== ENCOUNTER → 2018-12-19 | Outpatient (CLI) | payer OTHER ==
[2018-12-19 10:35] LABS: Basophils # (auto) 0.1 uL; Basophils % (auto) 1.4 % (0.0-2.0); Eosinophils # (auto) 0.2 uL; Eosinophils % (auto) 2.5 % (0.0-7.0); Hematocrit 36.7 % (36.0-46.0); Hemoglobin 12.2 g/dL (12.2-16.2); Lymphocytes # (auto) 0.9 uL; Mean Corpuscular Hemoglobin 29.8 pg (28.0-32.0); Mean Corpuscular Hgb Conc. 33.2 g/dL (32.0-36.0); Mean Corpuscular Volume 89.6 fL (80.0-100.0); Monocytes # (auto) 0.6 uL; Monocytes % (auto) 8.9 % (0.0-12.0); Neutrophils # (auto) 5.1 uL; Neutrophils % (auto) 74.2 % (37.0-80.0); Nucleated Red Blood Cells % 0.1 %; Platelet Count (auto) 225 10^3/uL (140-450); Red Blood Cells 4.09 10^6/uL (4.0-5.20); Red Cell Distribution Width 14.1 % (11.8-14.3); White Blood Cell 6.9 10^3/uL (4.4-10.8)
[2018-12-19 11:15] LABS: Potassium 4.6 mmol/L (3.5-5.1)
[2018-12-19 11:24] LABS: Albumin 3.8 g/dL (3.4-5.0); BUN/Creatinine Ratio 19.1; Bilirubin, Total 0.3 mg/dL (0.2-1.0); Calcium 9.6 mg/dL (8.5-10.1); Total Protein 7.4 g/dL (6.4-8.2)
== END | disposition home or self-care (01) ==
LOC: LAB 09:00
PROVIDERS: ATTEND Internal Medicine
DX: C50.411 Malignant neoplasm of upper-outer quadrant of right female breast (principal)
CPT/HCPCS: 36415; 80053; 83615; 85025

== ENCOUNTER → 2019-02-07 | Outpatient (CLI) | payer OTHER ==
[2019-02-07 10:42] LABS: Potassium 4.9 mmol/L (3.5-5.1)
[2019-02-07 10:49] LABS: Albumin 3.7 g/dL (3.4-5.0); BUN/Creatinine Ratio 18.8; Bilirubin, Total 0.4 mg/dL (0.2-1.0); Calcium 8.9 mg/dL (8.5-10.1); Total Protein 7.1 g/dL (6.4-8.2); Uric Acid 5.4 mg/dL (2.6-6.0)
[2019-02-07 10:52] LABS: Protein, Urine 185.4 mg/dL (0.0-11.9)
== END | disposition home or self-care (01) ==
LOC: LAB 09:21
PROVIDERS: ATTEND Internal Medicine
DX: R80.9 Proteinuria, unspecified (principal); M10.9 Gout, unspecified; I12.9 Hypertensive chronic kidney disease with stage 1 through stage 4 chronic kidney disease, or unspecified chronic kidney disease; N18.3 Chronic kidney disease, stage 3 (moderate); E21.3 Hyperparathyroidism, unspecified
CPT/HCPCS: 36415; 80053; 82570; 83970; 84156; 84550

== ENCOUNTER → 2019-03-13 | Outpatient (CLI) | payer OTHER ==
[~2019-03-13] MED LIST changes: -HYDR-4683 PO; +HYDR-4833 PO
[2019-03-13 10:04] LABS: Basophils # (auto) 0.1 uL; Eosinophils # (auto) 0.3 uL; Eosinophils % (auto) 4.6 % (0.0-7.0); Hematocrit 33.7 % (36.0-46.0); Hemoglobin 11.3 g/dL (12.2-16.2); Lymphocytes % (auto) 14.8 % (10.0-50.0); Mean Corpuscular Hemoglobin 30.2 pg (28.0-32.0); Mean Corpuscular Hgb Conc. 33.6 g/dL (32.0-36.0); Mean Corpuscular Volume 89.9 fL (80.0-100.0); Monocytes # (auto) 0.6 uL; Monocytes % (auto) 9.1 % (0.0-12.0); Neutrophils # (auto) 4.9 uL; Neutrophils % (auto) 70.5 % (37.0-80.0); Platelet Count (auto) 231 10^3/uL (140-450); Red Blood Cells 3.75 10^6/uL (4.0-5.20)
[2019-03-13 10:40] LABS: Albumin 3.8 g/dL (3.4-5.0); Calcium 9.3 mg/dL (8.5-10.1); Magnesium 1.5 mg/dL (1.6-2.6); Potassium 4.8 mmol/L (3.5-5.1)
[2019-03-13 10:43] LABS: BUN/Creatinine Ratio 18.4; Total Protein 7.4 g/dL (6.4-8.2)
[2019-03-13 10:46] LABS: Bilirubin, Total 0.3 mg/dL (0.2-1.0)
== END | disposition home or self-care (01) ==
LOC: LAB 09:36
PROVIDERS: ATTEND Internal Medicine
DX: R25.2 Cramp and spasm (principal); I12.9 Hypertensive chronic kidney disease with stage 1 through stage 4 chronic kidney disease, or unspecified chronic kidney disease; N18.4 Chronic kidney disease, stage 4 (severe)
CPT/HCPCS: 36415; 80053; 82550; 83036; 83735; 85025

== ENCOUNTER → 2019-04-04 | Outpatient (CLI) | payer OTHER ==
[2019-04-04 10:55] LABS: Basophils # (auto) 0.1 uL; Basophils % (auto) 0.7 % (0.0-2.0); Eosinophils # (auto) 0.3 uL; Eosinophils % (auto) 4.1 % (0.0-7.0); Hematocrit 35.4 % (36.0-46.0); Hemoglobin 11.7 g/dL (12.2-16.2); Lymphocytes # (auto) 0.9 uL; Lymphocytes % (auto) 11.1 % (10.0-50.0); Mean Corpuscular Hemoglobin 30.2 pg (28.0-32.0); Mean Corpuscular Volume 91.5 fL (80.0-100.0); Monocytes # (auto) 0.7 uL; Monocytes % (auto) 8.3 % (0.0-12.0); Neutrophils # (auto) 6.4 uL; Neutrophils % (auto) 75.8 % (37.0-80.0); Nucleated Red Blood Cells % 0.1 %; Platelet Count (auto) 226 10^3/uL (140-450); Red Blood Cells 3.87 10^6/uL (4.0-5.20); Red Cell Distribution Width 14.1 % (11.8-14.3); White Blood Cell 8.5 10^3/uL (4.4-10.8)
[2019-04-04 11:44] LABS: Albumin 3.9 g/dL (3.4-5.0); Calcium 9.6 mg/dL (8.5-10.1); Magnesium 1.5 mg/dL (1.6-2.6); Potassium 4.3 mmol/L (3.5-5.1)
[2019-04-04 11:46] LABS: BUN/Creatinine Ratio 18.3; Bilirubin, Total 0.4 mg/dL (0.2-1.0); Phosphorus 3.7 mg/dL (2.5-4.90); Total Protein 7.5 g/dL (6.4-8.2)
== END | disposition home or self-care (01) ==
LOC: LAB 10:10
PROVIDERS: ATTEND Internal Medicine Nephrology
DX: I12.9 Hypertensive chronic kidney disease with stage 1 through stage 4 chronic kidney disease, or unspecified chronic kidney disease (principal); E11.22 Type 2 diabetes mellitus with diabetic chronic kidney disease; D63.1 Anemia in chronic kidney disease; N18.3 Chronic kidney disease, stage 3 (moderate); E21.3 Hyperparathyroidism, unspecified
CPT/HCPCS: 36415; 80053; 82043; 82570; 83036; 83735; 83970; 84100; 85025

== ENCOUNTER → 2019-04-25 | Outpatient (CLI) | payer OTHER ==
[2019-04-25 10:45] LABS: Urine Bacteria NONE SEEN /hpf (None Seen); Urine Blood Negative /uL (Negative); Urine Specific Gravity 1.014 (1.001-1.035); Urine WBC 2 /hpf (0 - 5)
[2019-04-25 11:30] LABS: Potassium 4.5 mmol/L (3.5-5.1)
[2019-04-25 11:34] LABS: BUN/Creatinine Ratio 16.3; Calcium 9.2 mg/dL (8.5-10.1)
== END | disposition home or self-care (01) ==
LOC: LAB 09:05
PROVIDERS: ATTEND Urology
DX: R35.1 Nocturia (principal); Z85.828 Personal history of other malignant neoplasm of skin; Z90.5 Acquired absence of kidney
CPT/HCPCS: 36415; 80048; 81001

== ENCOUNTER → 2019-05-02 | Outpatient (CLI) | payer OTHER | END | disposition home or self-care (01) | LOC: LAB 15:25 | PROVIDERS: ATTEND Urology | DX: R31.29 Other microscopic hematuria (principal) | CPT/HCPCS: 87086; 87088; 87186 ==

== ENCOUNTER → 2019-05-28 | Outpatient (CLI) | payer OTHER | END | disposition home or self-care (01) | LOC: LAB 10:51 | PROVIDERS: ATTEND Urology | DX: N39.0 Urinary tract infection, site not specified (principal); Z88.3 Allergy status to other anti-infective agents; Z90.710 Acquired absence of both cervix and uterus; Z98.890 Other specified postprocedural states | CPT/HCPCS: 87086 ==

== ENCOUNTER → 2019-06-06 | Outpatient (CLI) | payer OTHER ==
[2019-06-06 12:13] LABS: Basophils # (auto) 0 uL; Basophils % (auto) 0.7 % (0.0-2.0); Eosinophils # (auto) 0.2 uL; Hematocrit 33.4 % (36.0-46.0); Hemoglobin 10.8 g/dL (12.2-16.2); Lymphocytes # (auto) 0.9 uL; Lymphocytes % (auto) 14.4 % (10.0-50.0); Mean Corpuscular Hemoglobin 29.6 pg (28.0-32.0); Mean Corpuscular Hgb Conc. 32.3 g/dL (32.0-36.0); Mean Corpuscular Volume 91.5 fL (80.0-100.0); Monocytes # (auto) 0.6 uL; Monocytes % (auto) 9.4 % (0.0-12.0); Neutrophils # (auto) 4.7 uL; Neutrophils % (auto) 72.5 % (37.0-80.0); Platelet Count (auto) 216 10^3/uL (140-450); Red Blood Cells 3.65 10^6/uL (4.0-5.20); Red Cell Distribution Width 13.8 % (11.8-14.3); White Blood Cell 6.5 10^3/uL (4.4-10.8)
[2019-06-06 12:17] LABS: Urine Bacteria FEW /hpf (None Seen); Urine Blood Negative /uL (Negative); Urine Mucus FEW (None Seen); Urine Specific Gravity 1.014 (1.001-1.035); Urine WBC 1 /hpf (0 - 5)
[2019-06-06 12:34] LABS: Albumin 4.1 g/dL (3.4-5.0); Calcium 10.2 mg/dL (8.5-10.1); Uric Acid 4.5 mg/dL (2.6-6.0)
[2019-06-06 12:47] LABS: Protein, Urine 120.9 mg/dL (0.0-11.9)
[2019-06-06 13:04] LABS: Potassium 6.5 mmol/L (3.5-5.1)
== END | disposition home or self-care (01) ==
LOC: LAB 11:37
PROVIDERS: ATTEND Internal Medicine
DX: N18.3 Chronic kidney disease, stage 3 (moderate) (principal); D63.1 Anemia in chronic kidney disease; E56.9 Vitamin deficiency, unspecified; M10.9 Gout, unspecified; E78.5 Hyperlipidemia, unspecified; I10 Essential (primary) hypertension; Z88.1 Allergy status to other antibiotic agents; Z90.710 Acquired absence of both cervix and uterus
CPT/HCPCS: 36415; 80069; 81001; 82306; 82570; 83970; 84156; 84550; 85025

== ENCOUNTER → 2019-06-10 | Outpatient (CLI) | payer OTHER ==
[2019-06-10 10:30] LABS: Albumin 3.4 g/dL (3.4-5.0); Calcium 8.7 mg/dL (8.5-10.1); Potassium 4.9 mmol/L (3.5-5.1)
[2019-06-10 10:41] LABS: BUN/Creatinine Ratio 17.8; Phosphorus 3.4 mg/dL (2.5-4.90)
== END | disposition home or self-care (01) ==
LOC: LAB 09:32
PROVIDERS: ATTEND Internal Medicine Nephrology
DX: E55.9 Vitamin D deficiency, unspecified (principal); I12.9 Hypertensive chronic kidney disease with stage 1 through stage 4 chronic kidney disease, or unspecified chronic kidney disease; N18.3 Chronic kidney disease, stage 3 (moderate); D63.1 Anemia in chronic kidney disease; M10.9 Gout, unspecified; N39.0 Urinary tract infection, site not specified; E21.3 Hyperparathyroidism, unspecified; E78.5 Hyperlipidemia, unspecified; R80.9 Proteinuria, unspecified; Z86.03 Personal history of neoplasm of uncertain behavior
CPT/HCPCS: 36415; 80069

== ENCOUNTER → 2019-06-18 | Outpatient (CLI) | payer OTHER ==
[2019-06-18 12:01] LABS: Basophils # (auto) 0.1 uL; Eosinophils # (auto) 0.2 uL; Eosinophils % (auto) 2.5 % (0.0-7.0); Hematocrit 32.8 % (36.0-46.0); Lymphocytes % (auto) 17.1 % (10.0-50.0); Mean Corpuscular Hemoglobin 29.6 pg (28.0-32.0); Mean Corpuscular Hgb Conc. 33.7 g/dL (32.0-36.0); Monocytes # (auto) 0.6 uL; Monocytes % (auto) 10.4 % (0.0-12.0); Neutrophils # (auto) 4.1 uL; Nucleated Red Blood Cells % 0.1 %; Platelet Count (auto) 211 10^3/uL (140-450); Red Blood Cells 3.73 10^6/uL (4.0-5.20); Red Cell Distribution Width 14.4 % (11.8-14.3)
[2019-06-18 12:15] LABS: Albumin 3.9 g/dL (3.4-5.0); Anion Gap 5 (5-15); Blood Urea Nitrogen 53 mg/dL (7-18); Calcium 8.9 mg/dL (8.5-10.1); Carbon Dioxide 26 mmol/L (21-32); Chloride 108 mmol/L (98-107); Glucose 124 mg/dL (74-106); Potassium 5.2 mmol/L (3.5-5.1); Sodium 139 mmol/L (136-145)
[2019-06-18 12:21] LABS: Alanine Aminotransferase 25 U/L (13-56); Alkaline Phosphatase 62 U/L (45-117); Aspartate Aminotransferase 19 U/L (15-37); BUN/Creatinine Ratio 19.9; Bilirubin, Total 0.3 mg/dL (0.2-1.0); GFR African American 22 mL/min; GFR Non-African American 18 mL/min; Phosphorus 3.9 mg/dL (2.5-4.90); Total Protein 7.7 g/dL (6.4-8.2)
== END | disposition home or self-care (01) ==
LOC: LAB 11:42
PROVIDERS: ATTEND Internal Medicine
DX: I12.0 Hypertensive chronic kidney disease with stage 5 chronic kidney disease or end stage renal disease (principal); E11.22 Type 2 diabetes mellitus with diabetic chronic kidney disease; N18.5 Chronic kidney disease, stage 5; R07.89 Other chest pain
CPT/HCPCS: 36415; 80053; 84100; 84484; 85025

== ENCOUNTER → 2019-06-26 | Outpatient (CLI) | payer OTHER ==
[2019-06-26 11:26] LABS: Albumin 3.8 g/dL (3.4-5.0); Calcium 8.2 mg/dL (8.5-10.1); Potassium 4.1 mmol/L (3.5-5.1)
[2019-06-26 11:34] LABS: Bilirubin, Total 0.2 mg/dL (0.2-1.0); Phosphorus 3.3 mg/dL (2.5-4.90); Total Protein 7.5 g/dL (6.4-8.2)
[2019-06-26 11:36] LABS: Basophils # (auto) 0 uL; Basophils % (auto) 0.8 % (0.0-2.0); Eosinophils # (auto) 0.2 uL; Eosinophils % (auto) 2.5 % (0.0-7.0); Hemoglobin 11.1 g/dL (12.2-16.2); Lymphocytes # (auto) 0.9 uL; Lymphocytes % (auto) 14.3 % (10.0-50.0); Mean Corpuscular Hemoglobin 29.8 pg (28.0-32.0); Mean Corpuscular Hgb Conc. 33.6 g/dL (32.0-36.0); Mean Corpuscular Volume 88.8 fL (80.0-100.0); Monocytes # (auto) 0.6 uL; Monocytes % (auto) 8.8 % (0.0-12.0); Neutrophils # (auto) 4.7 uL; Neutrophils % (auto) 73.6 % (37.0-80.0); Platelet Count (auto) 218 10^3/uL (140-450); Red Blood Cells 3.72 10^6/uL (4.0-5.20); Red Cell Distribution Width 14.3 % (11.8-14.3); White Blood Cell 6.3 10^3/uL (4.4-10.8)
[2019-06-26 12:17] LABS: INR 1.06 (0.9-1.15); Partial Thromboplastin Time 25.6 sec (23.64-32.05)
[2019-06-27 09:58] LABS: Hepatitis B Surface Antibody Negative
[2019-06-27 12:15] LABS: Hepatitis B Surface Antigen Negative (Negative)
== END | disposition home or self-care (01) ==
LOC: LAB 10:32
PROVIDERS: ATTEND Internal Medicine Nephrology
DX: N18.3 Chronic kidney disease, stage 3 (moderate) (principal); D63.1 Anemia in chronic kidney disease; E21.3 Hyperparathyroidism, unspecified; B17.9 Acute viral hepatitis, unspecified
CPT/HCPCS: 36415; 80053; 83970; 84100; 85025; 85610; 85730; 86706; 87340

== ENCOUNTER 2019-07-12 07:05 | Inpatient (IN) | payer OTHER ==
[2019-07-11 10:33] LABS: Basophils # (auto) 0.1 uL; Basophils % (auto) 0.9 % (0.0-2.0); Eosinophils # (auto) 0.1 uL; Eosinophils % (auto) 1.6 % (0.0-7.0); Hematocrit 33.3 % (36.0-46.0); Hemoglobin 11.2 g/dL (12.2-16.2); Lymphocytes # (auto) 0.7 uL; Mean Corpuscular Hemoglobin 29.7 pg (28.0-32.0); Mean Corpuscular Hgb Conc. 33.5 g/dL (32.0-36.0); Mean Corpuscular Volume 88.5 fL (80.0-100.0); Monocytes # (auto) 0.7 uL; Monocytes % (auto) 7.7 % (0.0-12.0); Neutrophils # (auto) 7.1 uL; Neutrophils % (auto) 81.8 % (37.0-80.0); Platelet Count (auto) 226 10^3/uL (140-450); Red Blood Cells 3.76 10^6/uL (4.0-5.20); Red Cell Distribution Width 14.7 % (11.8-14.3); White Blood Cell 8.7 10^3/uL (4.4-10.8)
[2019-07-11 10:42] LABS: INR 1.09 (0.9-1.15); Partial Thromboplastin Time 25.5 sec (23.64-32.05)
[2019-07-11 10:57] LABS: Urine Bacteria NONE SEEN /hpf (None Seen); Urine Blood Negative /uL (Negative); Urine Specific Gravity 1.009 (1.001-1.035); Urine WBC <1 /hpf (0 - 5)
[2019-07-11 10:58] LABS: Albumin 3.8 g/dL (3.4-5.0); Calcium 8.3 mg/dL (8.5-10.1); Potassium 4.1 mmol/L (3.5-5.1)
[2019-07-11 11:01] LABS: BUN/Creatinine Ratio 13.4; Bilirubin, Total 0.3 mg/dL (0.2-1.0); Total Protein 7.4 g/dL (6.4-8.2)
[~2019-07-12] VITALS: Ht 152.4 cm; Wt 73.0 kg
[~2019-07-12 07:05] MED LIST changes: +AMLO10TA13 PO; +ASPI-404 PO; +ATOR10TA52 PO; +CALC0.25 PO; -CHLO25TA22 PO; -CHOL20009 PO; -CLON0.1T PO; +COLC1CAP PO; +FOLI1TAB6 PO; -HYDR-4833 PO; -MAGN400T5 PO; +SEVE800T8 PO; +SODI650T PO
[2019-07-12] MEDS ORDERED: LIDOCAINE 1% HCL (LOCAL ANESTH.) INJ 20ML MDV ONE (08:43)
[2019-07-12] MEDS ORDERED: ceFAZolin 1GM VL ONE (08:43)
[2019-07-12] MEDS ORDERED: HEPARIN SODIUM (PORCINE) 5000 UNITS/ML 1ML VIAL ONE ×2 (08:43→10:47)
[2019-07-12] MEDS ORDERED: GELATIN 1 SPONGE SIZE 50 TOP ONE (09:38)
[2019-07-12] MEDS ORDERED: THROMBIN (BOVINE) 5000 UNIT SOL VIAL ONE (09:39)
[2019-07-12] MEDS ORDERED: fentaNYL CITRATE 100 MCG/2 ML VL ONE ×2 (09:55→12:32)
[2019-07-12] MEDS ORDERED: MEPERIDINE HCL (25 MG/ML) 1ML VIAL ONE (09:55)
[2019-07-12] MEDS ORDERED: MIDAZOLAM HCL 1MG/1ML-2 ML VIAL ONE ×2 (09:56→12:33)
[2019-07-12] MEDS ORDERED: PROPOFOL 10 MG/ML 20 ML IV ONE (10:03)
[2019-07-12] MEDS ORDERED: DexAMETHasone SOD PHOS 10MG/1ML VIAL INJ ONE ×2 (10:03→12:38)
[2019-07-12] MEDS ORDERED: ePHEDrine SULFATE 50 MG/ML AMP ONE (11:07)
[2019-07-12] MEDS ORDERED: PROTAMINE SULFATE 10 MG/ML 5ML VIAL IV ONE (11:33)
[2019-07-12] MEDS ORDERED: LABETALOL HCL 5 MG/ML 4ML SYRINGE IV ONE ×3 (12:29→12:48)
[2019-07-12] MEDS ORDERED: diphenhdrAMINE HCL 50 MG/1 ML VL ONE (12:39)
[2019-07-12] MEDS: LABETALOL HCL 5 MG/ML 4ML SYRINGE IV PRN ×6 (12:40→13:10)
[2019-07-12] MEDS ORDERED: hydrALAZINE HCL 20 MG/ML VL ONE (13:13)
[2019-07-12] MEDS: hydrALAZINE HCL 20 MG/ML VL IV PRN ×5 (13:15→15:00)
[2019-07-12] MEDS ORDERED: FUROSEMIDE 20 MG/2 ML VIAL IV ONE (13:45)
[2019-07-12] MEDS ORDERED: FUROSEMIDE 20 MG/2 ML VIAL ONE (13:47)
[2019-07-12] MEDS ORDERED: amLODIPine BESYLATE 5 MG TAB PO ONE (15:30)
[2019-07-12] MEDS ORDERED: cloNIDine HCL 0.1 MG TAB PO ONE (16:30)
[2019-07-12] MEDS ORDERED: ACETAMINOPHEN 500 MG TAB PO PRN (17:30)
[2019-07-12] MEDS ORDERED: hydrALAZINE HCL 20 MG/ML VL IV PRN ×2 (17:30)
[2019-07-12] MEDS ORDERED: PROMETHAZINE HCL 25 MG/ML 1ML IV PRN (17:30)
[2019-07-12] MEDS ORDERED: TEMAZEPAM 15 MG CAP PO PRN (17:30)
[2019-07-12] MEDS ORDERED: NITROGLYCERIN 0.4 MG SL TAB SL PRN (17:30)
[2019-07-12] MEDS ORDERED: LABETALOL HCL 5 MG/ML 4ML SYRINGE IV PRN ×3 (17:30)
[2019-07-12] MEDS ORDERED: LACTULOSE 20Gm/30ML SOLN PO PRN (17:30)
[2019-07-12] MEDS ORDERED: LABETALOL HCL 200 MG TAB PO ONE (17:30)
[2019-07-12] MEDS ORDERED: HYDROcodone-ACET 5/325MG TAB PO PRN (17:30)
[2019-07-12] MEDS ORDERED: MORPHINE SULF INJ 2 MG/ML SYRINGE 1ML IV PRN (17:30)
[2019-07-12] MEDS ORDERED: MORPHINE SULFATE 4 MG/ML SYR/VIAL IV PRN (17:30)
[2019-07-12] MEDS ORDERED: hydrALAZINE HCL 25 MG TAB PO ONE (17:30)
[2019-07-12] MEDS: SEVELAMER 800 MG TAB PO SCH (18:00)
--- NOTE | 2019-07-12 18:52 | NUR ---
PATIENT ARRIVED TO UNIT PATIENT ALERT AND ORIENTED X4 CARE ENDORSED TO NOC RN. PATIENT DENIES ALL PAIN SOB AND DISTRESS
--- NOTE | 2019-07-12 19:50 | NUR ---
Telemetry admit from PACU CAVLIN MESSINA admitted to Telemetry unit. Patient oriented to Evelyn HolleyRN primary RN, unit, room, bed, and unit policies regarding patient care and visiting hours. AAOX4, on room air and ambulatory with minimum assist. Patient now on continuous telemetry monitoring, tele box #40 and telemetry reading on arrival to unit is NSR. Bed in lowest locked position, side rails up x2, call light within reach. Patient weighed by bed scale and encouraged to call if they need something. All questions and concerns addressed, patient verbalized understanding. Will continue to monitor every hour and as needed.
[2019-07-12 20:00] VITALS: BP 154/70
[2019-07-12 22:00] VITALS: BP 154/72
[2019-07-12] MEDS: SODIUM CHLOR 0.9% PF (SALINE LOCK) 10ML VIAL/SYR IV SCH (22:07)
[2019-07-12] MEDS: GABAPENTIN 300 MG CAP PO SCH (22:08)
[2019-07-12] MEDS: hydrALAZINE HCL 25 MG TAB PO SCH (22:08)
[2019-07-12] MEDS: SODIUM BICARBONATE 650 MG TAB PO SCH (22:08)
[2019-07-12] MEDS: LABETALOL HCL 200 MG TAB PO SCH (22:09)
[2019-07-13] MEDS: hydrALAZINE HCL 25 MG TAB PO SCH ×2 (05:53→14:00)
[2019-07-13] MEDS: SODIUM CHLOR 0.9% PF (SALINE LOCK) 10ML VIAL/SYR IV SCH ×2 (05:53→14:00)
[2019-07-13] MEDS: SODIUM BICARBONATE 650 MG TAB PO SCH ×2 (05:53→14:00)
[2019-07-13 05:56] VITALS: BP 152/69
[2019-07-13 06:45] LABS: Albumin 3.4 g/dL (3.4-5.0); Calcium 8.1 mg/dL (8.5-10.1)
[2019-07-13 06:50] LABS: BUN/Creatinine Ratio 16.2; Bilirubin, Total 0.3 mg/dL (0.2-1.0); Total Protein 6.9 g/dL (6.4-8.2)
[2019-07-13] MEDS: SEVELAMER 800 MG TAB PO SCH ×2 (08:43→12:42)
[2019-07-13] MEDS: GABAPENTIN 300 MG CAP PO SCH (08:45)
[2019-07-13 08:59] VITALS: BP 159/71
--- NOTE | 2019-07-13 09:00 | NUR ---
SPOKE TO WILY TIERNEY VIA TELEPHONE. PER WILY PATIENT CLEARED FROM SURGICAL TO BE DISCHARGED
[2019-07-13] MEDS: LABETALOL HCL 200 MG TAB PO SCH (09:30)
[2019-07-13] MEDS ORDERED: FOLIC ACID 1 MG TAB PO SCH (10:00)
[2019-07-13] MEDS ORDERED: CALCITRIOL 0.25 MCG CAP PO SCH (10:00)
[2019-07-13] MEDS ORDERED: PANTOPRAZOLE 40 MG TAB PO SCH (10:00)
[2019-07-13] MEDS ORDERED: Febuxostat (Uloric) 40MG TAB PO SCH (10:00)
[2019-07-13] MEDS ORDERED: ATORVASTATIN 20 MG TAB PO SCH (10:00)
[2019-07-13] MEDS ORDERED: COLCHICINE 0.6 MG CAP PO SCH (10:00)
[2019-07-13] MEDS ORDERED: amLODIPine BESYLATE 5 MG TAB PO SCH (10:00)
[2019-07-13 12:18] VITALS: BP 159/64
[2019-07-13 13:14] VITALS: BP 159/68
--- NOTE | 2019-07-13 14:34 | NUR ---
DISCHARGE NOTE PATIENT ALERT AND ORIENTED X4 ALL DISCHARGE INSTRUCTIONS GIVEN ALL QUESTIONS AND CONCERNS ADRESSED AND ANSWERED PATIENT VERBALIZED UNDERSTANDING. PATIENT INFORMED SHE NEED TO MAKE FOLLOW UP APPOINTMENT WITH WILY PATIENT VERBALIZED UNDERSTANDING. IV REMOVED CATHETER INTACT PRESSURE DRESSING APPLIED PATIENT TOLERATED WELL. TELE BOX REMOVED CLEANED AND SENT TO ICU. PATIENT ASSISTED TO PERSONAL VEHICLE USING WHEELCHAIR DENIES ALL PAIN SOB AND DISTRESS. PATIENT DENIES FEELING ANY NUMBNESS IN AFFECTED ARM. PULSES PALPABLE NO DRAINAGE NOTED
== END 2019-07-13 14:28 | disposition home or self-care (01) | DRG 673 ==
LOC: SUR 07:05 → TELE-CENTR 19:44
PROVIDERS: ADMIT Surgery; ATTEND Surgery
PROC: 031C0ZF Bypass Left Radial Artery to Lower Arm Vein, Open Approach (ICD-10-PCS; principal; 2019-07-12 09:57)
DX: I12.0 Hypertensive chronic kidney disease with stage 5 chronic kidney disease or end stage renal disease (principal); N18.6 End stage renal disease; E03.9 Hypothyroidism, unspecified; E78.5 Hyperlipidemia, unspecified; I16.0 Hypertensive urgency; M10.9 Gout, unspecified; E66.3 Overweight; Z68.31 Body mass index [BMI] 31.0-31.9, adult; Z80.0 Family history of malignant neoplasm of digestive organs; Z82.49 Family history of ischemic heart disease and other diseases of the circulatory system; Z80.3 Family history of malignant neoplasm of breast; Z85.3 Personal history of malignant neoplasm of breast; Z85.528 Personal history of other malignant neoplasm of kidney; Z90.5 Acquired absence of kidney; Z98.1 Arthrodesis status; Z99.2 Dependence on renal dialysis; Z88.1 Allergy status to other antibiotic agents; Z79.899 Other long term (current) drug therapy
CPT/HCPCS: 36415; 80053; 81001; 82962; 85025; 85610; 85730; G0378; J0690; J1100; J2001; J2250; J2704; J3490

== ENCOUNTER → 2019-07-30 | Outpatient (CLI) | payer OTHER ==
[2019-07-30 11:34] LABS: Basophils # (auto) 0 uL; Basophils % (auto) 0.7 % (0.0-2.0); Eosinophils # (auto) 0.2 uL; Eosinophils % (auto) 2.8 % (0.0-7.0); Hematocrit 35.2 % (36.0-46.0); Hemoglobin 11.6 g/dL (12.2-16.2); Lymphocytes # (auto) 0.9 uL; Lymphocytes % (auto) 15.4 % (10.0-50.0); Mean Corpuscular Hemoglobin 29.6 pg (28.0-32.0); Mean Corpuscular Hgb Conc. 33.1 g/dL (32.0-36.0); Mean Corpuscular Volume 89.4 fL (80.0-100.0); Monocytes # (auto) 0.6 uL; Monocytes % (auto) 9.6 % (0.0-12.0); Neutrophils # (auto) 4.4 uL; Neutrophils % (auto) 71.5 % (37.0-80.0); Platelet Count (auto) 195 10^3/uL (140-450); Red Blood Cells 3.94 10^6/uL (4.0-5.20); Red Cell Distribution Width 15.2 % (11.8-14.3); White Blood Cell 6.2 10^3/uL (4.4-10.8)
[2019-07-30 11:52] LABS: Albumin 3.9 g/dL (3.4-5.0); Calcium 9.9 mg/dL (8.5-10.1); Magnesium 1.4 mg/dL (1.6-2.6); Potassium 4.8 mmol/L (3.5-5.1)
[2019-07-30 11:57] LABS: BUN/Creatinine Ratio 17.2; Bilirubin, Total 0.4 mg/dL (0.2-1.0); Phosphorus 4.1 mg/dL (2.5-4.90); Total Protein 7.5 g/dL (6.4-8.2)
[2019-07-30 12:06] LABS: Protein, Urine 264.4 mg/dL (0.0-11.9)
== END | disposition home or self-care (01) ==
LOC: LAB 11:09
PROVIDERS: ATTEND Internal Medicine Nephrology
DX: N18.3 Chronic kidney disease, stage 3 (moderate) (principal); D63.1 Anemia in chronic kidney disease; E21.3 Hyperparathyroidism, unspecified; M10.9 Gout, unspecified
CPT/HCPCS: 36415; 80053; 82043; 82570; 83735; 83970; 84100; 84156; 84550; 85025

== ENCOUNTER → 2019-08-19 | Outpatient (CLI) | payer OTHER ==
[2019-08-19 12:06] LABS: Albumin 3.8 g/dL (3.4-5.0); Calcium 9.6 mg/dL (8.5-10.1); Potassium 4.2 mmol/L (3.5-5.1)
[2019-08-19 12:10] LABS: BUN/Creatinine Ratio 21.9; Bilirubin, Total 0.4 mg/dL (0.2-1.0); Total Protein 7.5 g/dL (6.4-8.2)
[2019-08-19 12:37] LABS: Basophils # (auto) 0 uL; Basophils % (auto) 0.6 % (0.0-2.0); Eosinophils # (auto) 0.2 uL; Eosinophils % (auto) 2.6 % (0.0-7.0); Hematocrit 33.2 % (36.0-46.0); Hemoglobin 11.1 g/dL (12.2-16.2); Lymphocytes # (auto) 1.2 uL; Lymphocytes % (auto) 16.5 % (10.0-50.0); Mean Corpuscular Hemoglobin 29.6 pg (28.0-32.0); Mean Corpuscular Hgb Conc. 33.3 g/dL (32.0-36.0); Mean Corpuscular Volume 88.8 fL (80.0-100.0); Monocytes # (auto) 0.6 uL; Monocytes % (auto) 9.1 % (0.0-12.0); Neutrophils % (auto) 71.2 % (37.0-80.0); Platelet Count (auto) 228 10^3/uL (140-450); Red Blood Cells 3.75 10^6/uL (4.0-5.20); Red Cell Distribution Width 14.7 % (11.8-14.3)
[2019-08-20 07:06] LABS: Immunoglobulin G, Serum 734 mg/dL (700-1600)
[2019-08-21 12:47] LABS: Protein, Urine 75.3 mg/dL (0.0-11.9)
== END | disposition home or self-care (01) ==
LOC: LAB 10:55
PROVIDERS: ATTEND Internal Medicine
DX: C50.911 Malignant neoplasm of unspecified site of right female breast (principal)
CPT/HCPCS: 36415; 80053; 82232; 82784; 83615; 83883; 84156; 85025; 85652; 86334; 86335

== ENCOUNTER → 2019-08-28 | Outpatient (CLI) | payer OTHER ==
[2019-08-28 11:42] LABS: Basophils # (auto) 0.1 uL; Basophils % (auto) 0.8 % (0.0-2.0); Eosinophils # (auto) 0.2 uL; Eosinophils % (auto) 2.2 % (0.0-7.0); Hematocrit 34.7 % (36.0-46.0); Hemoglobin 11.7 g/dL (12.2-16.2); Lymphocytes # (auto) 1.2 uL; Lymphocytes % (auto) 14.9 % (10.0-50.0); Mean Corpuscular Hemoglobin 30.2 pg (28.0-32.0); Mean Corpuscular Hgb Conc. 33.6 g/dL (32.0-36.0); Mean Corpuscular Volume 89.8 fL (80.0-100.0); Monocytes # (auto) 0.7 uL; Monocytes % (auto) 8.7 % (0.0-12.0); Neutrophils % (auto) 73.4 % (37.0-80.0); Platelet Count (auto) 213 10^3/uL (140-450); Red Blood Cells 3.86 10^6/uL (4.0-5.20); Red Cell Distribution Width 14.7 % (11.8-14.3); White Blood Cell 8.1 10^3/uL (4.4-10.8)
[2019-08-28 11:54] LABS: Albumin 3.9 g/dL (3.4-5.0); Calcium 9.5 mg/dL (8.5-10.1); Potassium 5.1 mmol/L (3.5-5.1)
[2019-08-28 11:58] LABS: BUN/Creatinine Ratio 19.3; Bilirubin, Total 0.3 mg/dL (0.2-1.0); Total Protein 7.6 g/dL (6.4-8.2)
== END | disposition home or self-care (01) ==
LOC: LAB 10:43
PROVIDERS: ATTEND Internal Medicine
DX: E11.9 Type 2 diabetes mellitus without complications (principal); R25.1 Tremor, unspecified
CPT/HCPCS: 36415; 80053; 83036; 84439; 84443; 85025; 87040

== ENCOUNTER → 2019-09-04 | Outpatient (CLI) | payer OTHER ==
[2019-09-04 12:21] LABS: Albumin 3.9 g/dL (3.4-5.0); Calcium 9.7 mg/dL (8.5-10.1); Magnesium 2.5 mg/dL (1.6-2.6); Potassium 4.7 mmol/L (3.5-5.1)
[2019-09-04 12:26] LABS: BUN/Creatinine Ratio 21.8; Bilirubin, Total 0.3 mg/dL (0.2-1.0); Total Protein 7.6 g/dL (6.4-8.2)
[2019-09-05 09:25] LABS: Hepatitis B Surface Antibody Negative
[2019-09-05 11:35] LABS: Hepatitis B Surface Antigen Negative (Negative)
== END | disposition home or self-care (01) ==
LOC: LAB 11:25
PROVIDERS: ATTEND Internal Medicine
DX: E11.22 Type 2 diabetes mellitus with diabetic chronic kidney disease (principal); N18.3 Chronic kidney disease, stage 3 (moderate); R80.9 Proteinuria, unspecified; B18.8 Other chronic viral hepatitis
CPT/HCPCS: 36415; 80053; 82043; 83036; 83735; 86706; 87340

== ENCOUNTER → 2019-09-11 | Outpatient (CLI) | payer OTHER ==
[2019-09-11 13:24] LABS: Basophils # (auto) 0 uL; Basophils % (auto) 0.4 % (0.0-2.0); Eosinophils # (auto) 0.1 uL; Eosinophils % (auto) 1.8 % (0.0-7.0); Hematocrit 36.7 % (36.0-46.0); Lymphocytes % (auto) 13.4 % (10.0-50.0); Mean Corpuscular Hemoglobin 29.8 pg (28.0-32.0); Mean Corpuscular Hgb Conc. 32.8 g/dL (32.0-36.0); Mean Corpuscular Volume 90.8 fL (80.0-100.0); Monocytes # (auto) 0.5 uL; Monocytes % (auto) 7.1 % (0.0-12.0); Neutrophils # (auto) 5.7 uL; Neutrophils % (auto) 77.3 % (37.0-80.0); Platelet Count (auto) 220 10^3/uL (140-450); Red Blood Cells 4.04 10^6/uL (4.0-5.20); Red Cell Distribution Width 14.7 % (11.8-14.3); White Blood Cell 7.4 10^3/uL (4.4-10.8)
[2019-09-11 13:39] LABS: Albumin 3.8 g/dL (3.4-5.0); BUN/Creatinine Ratio 14.9; Bilirubin, Total 0.3 mg/dL (0.2-1.0); Calcium 10.4 mg/dL (8.5-10.1); Total Protein 7.7 g/dL (6.4-8.2); Uric Acid 6.5 mg/dL (2.6-6.0)
[2019-09-11 14:20] LABS: Protein, Urine 245.1 mg/dL (0.0-11.9)
[2019-09-12 09:51] LABS: Hepatitis B Surface Antibody Negative
[2019-09-12 10:25] LABS: Hepatitis A Total Antibody Negative
[2019-09-12 11:28] LABS: Hepatitis B Surface Antigen Negative (Negative); Hepatitis C Antibody Negative (Negative)
== END | disposition home or self-care (01) ==
LOC: LAB 12:23
PROVIDERS: ATTEND Internal Medicine Nephrology
DX: N18.3 Chronic kidney disease, stage 3 (moderate) (principal); D63.1 Anemia in chronic kidney disease; E21.3 Hyperparathyroidism, unspecified; B17.9 Acute viral hepatitis, unspecified; M10.9 Gout, unspecified; R80.9 Proteinuria, unspecified
CPT/HCPCS: 36415; 80053; 80061; 82570; 83970; 84100; 84156; 84550; 85025; 86706; 86708; 86803; 87340

== ENCOUNTER → 2019-09-30 | Outpatient (CLI) | payer OTHER ==
[~2019-09-30] MED LIST changes: +FURO1TAB33 PO; +MAGN1TAB29 PO
[2019-09-30 11:13] LABS: Basophils # (auto) 0.1 10 ^3/uL (0-0.2); Basophils % (auto) 0.6 % (0.0-2.0); Eosinophils # (auto) 0.2 10 ^3/uL (0-0.8); Eosinophils % (auto) 2.3 % (0.0-7.0); Hematocrit 33.6 % (36.0-46.0); Hemoglobin 11.5 g/dL (12.2-16.2); Lymphocytes # (auto) 1.1 10 ^3/uL (0.4-5.4); Lymphocytes % (auto) 12.8 % (10.0-50.0); Mean Corpuscular Hemoglobin 31.3 pg (28.0-32.0); Mean Corpuscular Hgb Conc. 34.3 g/dL (32.0-36.0); Mean Corpuscular Volume 91.2 fL (80.0-100.0); Monocytes # (auto) 0.7 10 ^3/uL (0-1.3); Monocytes % (auto) 7.9 % (0.0-12.0); Neutrophils # (auto) 6.6 10 ^3/uL (1.6-8.6); Neutrophils % (auto) 76.4 % (37.0-80.0); Platelet Count (auto) 209 10^3/uL (140-450); Red Blood Cells 3.69 10^6/uL (4.0-5.20); Red Cell Distribution Width 14.1 % (11.8-14.3); White Blood Cell 8.7 10^3/uL (4.4-10.8)
[2019-09-30 11:53] LABS: Albumin 3.8 g/dL (3.4-5.0); Calcium 9.3 mg/dL (8.5-10.1); Potassium 4.8 mmol/L (3.5-5.1)
[2019-09-30 11:56] LABS: BUN/Creatinine Ratio 17.9; Bilirubin, Total 0.3 mg/dL (0.2-1.0); Phosphorus 4.2 mg/dL (2.5-4.90); Total Protein 7.4 g/dL (6.4-8.2)
== END | disposition home or self-care (01) ==
LOC: LAB 10:55
PROVIDERS: ATTEND Internal Medicine
DX: N18.3 Chronic kidney disease, stage 3 (moderate) (principal)
CPT/HCPCS: 36415; 80053; 82043; 84100; 85025

== ENCOUNTER → 2019-10-30 | Day surgery (SDC) | payer OTHER ==
[2019-10-28 09:59] LABS: Basophils # (auto) 0 10 ^3/uL (0-0.2); Basophils % (auto) 0.5 % (0.0-2.0); Eosinophils # (auto) 0.1 10 ^3/uL (0-0.8); Eosinophils % (auto) 1.7 % (0.0-7.0); Hematocrit 36.3 % (36.0-46.0); Hemoglobin 12.2 g/dL (12.2-16.2); Lymphocytes % (auto) 14.3 % (10.0-50.0); Mean Corpuscular Hemoglobin 30.3 pg (28.0-32.0); Mean Corpuscular Hgb Conc. 33.6 g/dL (32.0-36.0); Mean Corpuscular Volume 90.2 fL (80.0-100.0); Monocytes # (auto) 0.6 10 ^3/uL (0-1.3); Monocytes % (auto) 8.7 % (0.0-12.0); Neutrophils % (auto) 74.8 % (37.0-80.0); Platelet Count (auto) 215 10^3/uL (140-450); Red Blood Cells 4.02 10^6/uL (4.0-5.20); Red Cell Distribution Width 13.9 % (11.8-14.3); White Blood Cell 6.7 10^3/uL (4.4-10.8)
[2019-10-28 10:13] LABS: Urine Bacteria NONE SEEN /hpf (None Seen); Urine Blood Negative /uL (Negative); Urine WBC 1 /hpf (0 - 5)
[2019-10-28 10:25] LABS: Albumin 3.9 g/dL (3.4-5.0); Calcium 9.5 mg/dL (8.5-10.1); Potassium 4.4 mmol/L (3.5-5.1)
[2019-10-28 10:28] LABS: INR 1.05 (0.9-1.15); Partial Thromboplastin Time 25.6 sec (23.64-32.05)
[2019-10-28 10:29] LABS: BUN/Creatinine Ratio 19.7; Bilirubin, Total 0.4 mg/dL (0.2-1.0); Total Protein 7.7 g/dL (6.4-8.2)
[~2019-10-30] VITALS: Ht 165.1 cm; Wt 68.0 kg
[~2019-10-30] MED LIST changes: -COLC1CAP PO; +HEPARIN SODIUM (PORCINE) 5000 UNITS/ML 1ML VIAL ONE; +HYDROmorphone HCL 2 MG/ML VL IV PRN; +KETAMINE HCL 10 ML ONE; +LIDOCAINE 1% HCL (LOCAL ANESTH.) INJ 20ML MDV ONE; +MIDAZOLAM HCL 1MG/1ML-2 ML VIAL ONE; +MORPHINE SULFATE 4 MG/ML SYR/VIAL IV PRN; +ONDANSETRON HCL 4 MG/2 ML VIAL ONE; +PROPOFOL 10 MG/ML 20 ML IV ONE; +PROTAMINE SULFATE 10 MG/ML 5ML VIAL IV ONE; +SODIUM CHLORIDE LOCK 10 ML ONE; +ceFAZolin 1GM VL ONE; +ceFAZolin 1GM/50ML 50 ML IV ONE; +fentaNYL CITRATE 100 MCG/2 ML VL IV PRN; +fentaNYL CITRATE 100 MCG/2 ML VL ONE
[2019-10-30 12:45] VITALS: BP 181/72
== END | disposition home or self-care (01) ==
LOC: SUR 07:08
PROVIDERS: ATTEND Surgery
DX: E11.22 Type 2 diabetes mellitus with diabetic chronic kidney disease (principal); I12.0 Hypertensive chronic kidney disease with stage 5 chronic kidney disease or end stage renal disease; K21.9 Gastro-esophageal reflux disease without esophagitis; G89.29 Other chronic pain; Z88.1 Allergy status to other antibiotic agents; Z79.899 Other long term (current) drug therapy; Z98.890 Other specified postprocedural states; Z90.710 Acquired absence of both cervix and uterus; Z85.3 Personal history of malignant neoplasm of breast
CPT/HCPCS: 36415; 36830; 80053; 81001; 82962; 85025; 85610; 85730; J0690; J1644; J2001; J2250; J2405; J2704; J2720; J3010; L2670

== ENCOUNTER → 2019-11-25 | Outpatient (CLI) | payer OTHER ==
[~2019-11-25] MED LIST changes: -ASPI-404 PO; +ASPI-543 PO; -HEPARIN SODIUM (PORCINE) 5000 UNITS/ML 1ML VIAL ONE; +HYDR100T22 PO; -HYDROmorphone HCL 2 MG/ML VL IV PRN; -KETAMINE HCL 10 ML ONE; -LIDOCAINE 1% HCL (LOCAL ANESTH.) INJ 20ML MDV ONE; -MIDAZOLAM HCL 1MG/1ML-2 ML VIAL ONE; -MORPHINE SULFATE 4 MG/ML SYR/VIAL IV PRN; -ONDANSETRON HCL 4 MG/2 ML VIAL ONE; -PROPOFOL 10 MG/ML 20 ML IV ONE; -PROTAMINE SULFATE 10 MG/ML 5ML VIAL IV ONE; -SODIUM CHLORIDE LOCK 10 ML ONE; -ceFAZolin 1GM VL ONE; -ceFAZolin 1GM/50ML 50 ML IV ONE; -fentaNYL CITRATE 100 MCG/2 ML VL IV PRN; -fentaNYL CITRATE 100 MCG/2 ML VL ONE
[2019-11-25 09:21] LABS: Basophils # (auto) 0.1 10 ^3/uL (0-0.2); Eosinophils # (auto) 0.2 10 ^3/uL (0-0.8); Eosinophils % (auto) 2.8 % (0.0-7.0); Hematocrit 35.3 % (36.0-46.0); Lymphocytes # (auto) 1.2 10 ^3/uL (0.4-5.4); Mean Corpuscular Hemoglobin 30.4 pg (28.0-32.0); Mean Corpuscular Hgb Conc. 33.9 g/dL (32.0-36.0); Mean Corpuscular Volume 89.8 fL (80.0-100.0); Monocytes # (auto) 0.6 10 ^3/uL (0-1.3); Neutrophils # (auto) 4.3 10 ^3/uL (1.6-8.6); Neutrophils % (auto) 68.2 % (37.0-80.0); Nucleated Red Blood Cells % 0.1 %; Platelet Count (auto) 223 10^3/uL (140-450); Red Blood Cells 3.93 10^6/uL (4.0-5.20); White Blood Cell 6.3 10^3/uL (4.4-10.8)
[2019-11-25 10:10] LABS: Albumin 3.9 g/dL (3.4-5.0); Calcium 9.1 mg/dL (8.5-10.1); Potassium 4.5 mmol/L (3.5-5.1)
[2019-11-25 10:13] LABS: Bilirubin, Total 0.4 mg/dL (0.2-1.0); Phosphorus 3.7 mg/dL (2.5-4.90); Total Protein 7.6 g/dL (6.4-8.2)
== END | disposition home or self-care (01) ==
LOC: LAB 09:01
PROVIDERS: ATTEND Internal Medicine Nephrology
DX: N18.3 Chronic kidney disease, stage 3 (moderate) (principal); D63.1 Anemia in chronic kidney disease
CPT/HCPCS: 36415; 80053; 80069; 83970; 85025

== ENCOUNTER → 2019-12-11 | Outpatient (CLI) | payer OTHER | END | disposition home or self-care (01) | LOC: XY 10:58 | PROVIDERS: ATTEND Surgery | DX: S60.222A Contusion of left hand, initial encounter (principal); Z11.59 Encounter for screening for other viral diseases; X58.XXXA Exposure to other specified factors, initial encounter; Y93.89 Activity, other specified; Y92.89 Other specified places as the place of occurrence of the external cause; Y99.8 Other external cause status | CPT/HCPCS: 93931; U0003 ==

== ENCOUNTER → 2019-12-12 | Outpatient (CLI) | payer OTHER ==
[~2019-12-12] MED LIST changes: +ASPI-404 PO; -ASPI-543 PO
[2019-12-12 08:29] LABS: Basophils # (auto) 0 10 ^3/uL (0-0.2); Basophils % (auto) 0.4 % (0.0-2.0); Eosinophils # (auto) 0.1 10 ^3/uL (0-0.8); Hematocrit 30.9 % (36.0-46.0); Hemoglobin 10.2 g/dL (12.2-16.2); Lymphocytes # (auto) 0.8 10 ^3/uL (0.4-5.4); Lymphocytes % (auto) 8.3 % (10.0-50.0); Mean Corpuscular Hemoglobin 29.6 pg (28.0-32.0); Mean Corpuscular Hgb Conc. 33.2 g/dL (32.0-36.0); Mean Corpuscular Volume 89.2 fL (80.0-100.0); Monocytes # (auto) 0.9 10 ^3/uL (0-1.3); Neutrophils # (auto) 8.1 10 ^3/uL (1.6-8.6); Neutrophils % (auto) 81.3 % (37.0-80.0); Nucleated Red Blood Cells % 0.1 %; Platelet Count (auto) 258 10^3/uL (140-450); Red Blood Cells 3.46 10^6/uL (4.0-5.20); Red Cell Distribution Width 13.8 % (11.8-14.3); White Blood Cell 9.9 10^3/uL (4.4-10.8)
[2019-12-12 08:32] LABS: Urine Bacteria NONE SEEN /hpf (None Seen); Urine Blood Negative /uL (Negative); Urine Hyaline Cast FEW /lpf (0 - 2); Urine Specific Gravity 1.015 (1.001-1.035); Urine WBC 1 /hpf (0 - 5)
[2019-12-12 08:47] LABS: INR 1.15 (0.9-1.15); Partial Thromboplastin Time 26.8 sec (23.64-32.05)
[2019-12-12 09:03] LABS: Albumin 3.1 g/dL (3.4-5.0); Calcium 8.3 mg/dL (8.5-10.1); Potassium 4.4 mmol/L (3.5-5.1)
[2019-12-12 09:07] LABS: BUN/Creatinine Ratio 13.4; Bilirubin, Total 0.6 mg/dL (0.2-1.0); Total Protein 7.1 g/dL (6.4-8.2)
== END | disposition home or self-care (01) ==
LOC: LAB 08:06
PROVIDERS: ATTEND Surgery
DX: N18.4 Chronic kidney disease, stage 4 (severe) (principal)
CPT/HCPCS: 36415; 80053; 81001; 85025; 85610; 85730

== ENCOUNTER 2019-12-13 08:25 | Day surgery (SDC) | payer OTHER ==
[~2019-12-13 08:25] MED LIST changes: -HYDR100T22 PO
[2019-12-13] MEDS ORDERED: HYDR100T22 PO (09:37)
[2019-12-13] MEDS ORDERED: fentaNYL CITRATE 100 MCG/2 ML VL ONE (12:34)
[2019-12-13] MEDS ORDERED: LIDOCAINE 2%HCL (LOCAL ANESTH.) INJ 20ML MDV ONE (12:34)
[2019-12-13] MEDS ORDERED: MIDAZOLAM HCL 1MG/1ML-2 ML VIAL ONE (12:34)
[2019-12-13] MEDS ORDERED: HEPARIN SODIUM (PORCINE) 5000 UNITS/ML 1ML VIAL ONE (12:35)
[2019-12-13] MEDS ORDERED: hydrALAZINE HCL 20 MG/ML VL ONE (14:07)
[2019-12-13] MEDS ORDERED: IOHEXOL 350 MG/ML 100ML IJ ONE (15:20)
[2019-12-13] MEDS ORDERED: ACETAMINOPHEN 500 MG TAB PO PRN (16:30)
[2019-12-13] MEDS ORDERED: SODIUM CHLOR 0.9% PF (SALINE LOCK) 10ML VIAL/SYR IV SCH (22:00)
== END 2019-12-13 17:42 | disposition home or self-care (01) ==
LOC: CATH 08:25
PROVIDERS: ATTEND Radiology Diagnostic Radiology
DX: R20.0 Anesthesia of skin (principal); N18.6 End stage renal disease; Z82.49 Family history of ischemic heart disease and other diseases of the circulatory system; Z90.710 Acquired absence of both cervix and uterus; Z98.890 Other specified postprocedural states; Z79.82 Long term (current) use of aspirin; Z79.899 Other long term (current) drug therapy
CPT/HCPCS: 36902; C1725; C1760; C1769; C1887; C1894; J0360; J1644; J2250; J3010; J7030; Q9967; 36901; 76942; 99152; 99153

== ENCOUNTER → 2019-12-31 | Outpatient (CLI) | payer OTHER ==
[~2019-12-31] MED LIST changes: -AMLO10TA13 PO; -ASPI-404 PO; +ASPI-543 PO; -CALC0.25 PO; -HYDR-4296 PO; +HYDR100T22 PO; -MAGN1TAB29 PO
[2019-12-31 10:21] LABS: Basophils # (auto) 0.1 10 ^3/uL (0-0.2); Basophils % (auto) 0.8 % (0.0-2.0); Eosinophils # (auto) 0.1 10 ^3/uL (0-0.8); Eosinophils % (auto) 1.9 % (0.0-7.0); Hemoglobin 9.9 g/dL (12.2-16.2); Lymphocytes # (auto) 0.8 10 ^3/uL (0.4-5.4); Lymphocytes % (auto) 10.1 % (10.0-50.0); Mean Corpuscular Hemoglobin 29.5 pg (28.0-32.0); Mean Corpuscular Hgb Conc. 32.9 g/dL (32.0-36.0); Mean Corpuscular Volume 89.7 fL (80.0-100.0); Monocytes # (auto) 0.6 10 ^3/uL (0-1.3); Monocytes % (auto) 7.9 % (0.0-12.0); Neutrophils # (auto) 6.2 10 ^3/uL (1.6-8.6); Neutrophils % (auto) 79.3 % (37.0-80.0); Platelet Count (auto) 214 10^3/uL (140-450); Red Blood Cells 3.34 10^6/uL (4.0-5.20); Red Cell Distribution Width 14.5 % (11.8-14.3); White Blood Cell 7.8 10^3/uL (4.4-10.8)
[2019-12-31 12:25] LABS: Albumin 3.3 g/dL (3.4-5.0); Calcium 8.7 mg/dL (8.5-10.1); Potassium 4.7 mmol/L (3.5-5.1)
[2019-12-31 12:26] LABS: BUN/Creatinine Ratio 18.1
[2019-12-31 12:29] LABS: Bilirubin, Total 0.4 mg/dL (0.2-1.0); Total Protein 7.6 g/dL (6.4-8.2)
== END | disposition home or self-care (01) ==
LOC: LAB 10:06
PROVIDERS: ATTEND Internal Medicine Nephrology
DX: E11.22 Type 2 diabetes mellitus with diabetic chronic kidney disease (principal); N18.5 Chronic kidney disease, stage 5; D63.1 Anemia in chronic kidney disease
CPT/HCPCS: 36415; 80053; 83036; 85025

== ENCOUNTER → 2020-02-04 | Outpatient (CLI) | payer OTHER ==
[2020-02-04 10:17] LABS: Protein, Urine 281.7 mg/dL (0.0-11.9)
[2020-02-04 10:30] LABS: Albumin 2.9 g/dL (3.4-5.0); Calcium 8.7 mg/dL (8.5-10.1); Potassium 4.7 mmol/L (3.5-5.1)
[2020-02-04 10:35] LABS: BUN/Creatinine Ratio 15.3; Bilirubin, Total 0.4 mg/dL (0.2-1.0); Phosphorus 3.8 mg/dL (2.5-4.90); Total Protein 7.2 g/dL (6.4-8.2); Uric Acid 4.8 mg/dL (2.6-6.0)
== END | disposition home or self-care (01) ==
LOC: LAB 09:42
PROVIDERS: ATTEND Internal Medicine Nephrology
DX: E11.22 Type 2 diabetes mellitus with diabetic chronic kidney disease (principal); N18.9 Chronic kidney disease, unspecified; E21.3 Hyperparathyroidism, unspecified; R80.9 Proteinuria, unspecified
CPT/HCPCS: 36415; 80053; 82570; 83036; 83970; 84100; 84156; 84550

== ENCOUNTER → 2020-02-07 | Outpatient (CLI) | payer OTHER ==
[~2020-02-07] MED LIST changes: +ASPI-404 PO; -ASPI-543 PO
== END | disposition home or self-care (01) ==
LOC: LAB 14:55
PROVIDERS: ATTEND Nurse Practitioner Family
DX: Z11.59 Encounter for screening for other viral diseases (principal)

== ENCOUNTER → 2020-04-03 | Outpatient (CLI) | payer OTHER ==
[~2020-04-03] MED LIST changes: -ASPI-404 PO; +ASPI-543 PO
[2020-04-03 11:01] LABS: Basophils # (auto) 0 10 ^3/uL (0-0.2); Basophils % (auto) 0.4 % (0.0-2.0); Eosinophils # (auto) 0.1 10 ^3/uL (0-0.8); Eosinophils % (auto) 0.9 % (0.0-7.0); Hematocrit 30.2 % (36.0-46.0); Hemoglobin 9.8 g/dL (12.2-16.2); Lymphocytes # (auto) 0.4 10 ^3/uL (0.4-5.4); Lymphocytes % (auto) 4.9 % (10.0-50.0); Mean Corpuscular Hemoglobin 27.2 pg (28.0-32.0); Mean Corpuscular Hgb Conc. 32.3 g/dL (32.0-36.0); Mean Corpuscular Volume 84.3 fL (80.0-100.0); Monocytes # (auto) 0.6 10 ^3/uL (0-1.3); Monocytes % (auto) 7.2 % (0.0-12.0); Neutrophils # (auto) 7.4 10 ^3/uL (1.6-8.6); Neutrophils % (auto) 86.6 % (37.0-80.0); Nucleated Red Blood Cells % 0.3 %; Platelet Count (auto) 115 10^3/uL (140-450); Red Blood Cells 3.59 10^6/uL (4.0-5.20); Red Cell Distribution Width 16.5 % (11.8-14.3); White Blood Cell 8.5 10^3/uL (4.4-10.8)
[2020-04-03 11:58] LABS: Albumin 2.7 g/dL (3.4-5.0); Calcium 8.5 mg/dL (8.5-10.1); Magnesium 1.3 mg/dL (1.6-2.6); Potassium 4.5 mmol/L (3.5-5.1); Uric Acid 3.9 mg/dL (2.6-6.0)
[2020-04-03 12:03] LABS: BUN/Creatinine Ratio 15.7; Bilirubin, Total 0.4 mg/dL (0.2-1.0); Phosphorus 3.6 mg/dL (2.5-4.90)
== END | disposition home or self-care (01) ==
LOC: LAB 10:14
PROVIDERS: ATTEND Internal Medicine Nephrology
DX: N18.9 Chronic kidney disease, unspecified (principal); D63.1 Anemia in chronic kidney disease; E83.39 Other disorders of phosphorus metabolism; E78.5 Hyperlipidemia, unspecified; M10.9 Gout, unspecified
CPT/HCPCS: 36415; 80053; 83735; 83970; 84100; 84550; 85025

== ENCOUNTER → 2020-04-29 | Outpatient (CLI) | payer OTHER ==
[2020-04-29 10:47] LABS: Basophils # (auto) 0 10 ^3/uL (0-0.2); Basophils % (auto) 0.5 % (0.0-2.0); Eosinophils # (auto) 0.1 10 ^3/uL (0-0.8); Hemoglobin 10.1 g/dL (12.2-16.2); Lymphocytes # (auto) 0.5 10 ^3/uL (0.4-5.4); Mean Corpuscular Hgb Conc. 32.1 g/dL (32.0-36.0); Monocytes # (auto) 0.7 10 ^3/uL (0-1.3)
[2020-04-29 10:49] LABS: Eosinophils % (auto) 0.7 % (0.0-7.0); Hematocrit 31.4 % (36.0-46.0); Lymphocytes % (auto) 5.1 % (10.0-50.0); Mean Corpuscular Hemoglobin 26.8 pg (28.0-32.0); Mean Corpuscular Volume 83.4 fL (80.0-100.0); Monocytes % (auto) 7.6 % (0.0-12.0); Neutrophils # (auto) 7.8 10 ^3/uL (1.6-8.6); Neutrophils % (auto) 86.1 % (37.0-80.0); Platelet Count (auto) 162 10^3/uL (140-450); Red Blood Cells 3.76 10^6/uL (4.0-5.20); Red Cell Distribution Width 16.8 % (11.8-14.3); White Blood Cell 9.1 10^3/uL (4.4-10.8)
[2020-04-29 11:11] LABS: Albumin 2.8 g/dL (3.4-5.0); Calcium 8.6 mg/dL (8.5-10.1); Magnesium 1.5 mg/dL (1.6-2.6); Potassium 4.6 mmol/L (3.5-5.1)
[2020-04-29 11:14] LABS: BUN/Creatinine Ratio 14.1; Bilirubin, Total 0.4 mg/dL (0.2-1.0); Phosphorus 4.4 mg/dL (2.5-4.90); Total Protein 7.5 g/dL (6.4-8.2)
== END | disposition home or self-care (01) ==
LOC: LAB 10:21
PROVIDERS: ATTEND Internal Medicine Nephrology
DX: N18.30 Chronic kidney disease, stage 3 unspecified (principal); D63.1 Anemia in chronic kidney disease; E21.3 Hyperparathyroidism, unspecified; R80.9 Proteinuria, unspecified
CPT/HCPCS: 36415; 80053; 82043; 82570; 83735; 83970; 84100; 85025

== ENCOUNTER 2020-08-11 11:16 | Inpatient (IN) | payer OTHER ==
[~2020-08-11] VITALS: Ht 165.1 cm; Wt 59.0 kg
[2020-08-11 11:59] LABS: Basophils # (auto) 0.1 10 ^3/uL (0-0.2); Basophils % (auto) 1.1 % (0.0-2.0); Eosinophils # (auto) 0.1 10 ^3/uL (0-0.8); Eosinophils % (auto) 2.2 % (0.0-7.0); Hematocrit 34.8 % (36.0-46.0); Hemoglobin 11.3 g/dL (12.2-16.2); Lymphocytes # (auto) 0.7 10 ^3/uL (0.4-5.4); Lymphocytes % (auto) 12.7 % (10.0-50.0); Mean Corpuscular Hemoglobin 30.9 pg (28.0-32.0); Mean Corpuscular Hgb Conc. 32.6 g/dL (32.0-36.0); Mean Corpuscular Volume 94.9 fL (80.0-100.0); Monocytes # (auto) 0.4 10 ^3/uL (0-1.3); Monocytes % (auto) 7.8 % (0.0-12.0); Neutrophils # (auto) 4.3 10 ^3/uL (1.6-8.6); Neutrophils % (auto) 76.2 % (37.0-80.0); Nucleated Red Blood Cells % 0.1 %; Red Blood Cells 3.66 10^6/uL (4.0-5.20); Red Cell Distribution Width 17.5 % (11.8-14.3); White Blood Cell 5.7 10^3/uL (4.4-10.8)
[2020-08-11 12:26] LABS: INR 1.08 (0.9-1.15)
[2020-08-11] MEDS ORDERED: BUMETANIDE 2.5mg/10ml (0.25 mg/ml) INJ IV ONE (13:00)
[2020-08-11] MEDS ORDERED: amLODIPine BESYLATE 5 MG TAB PO ONE (13:00)
[2020-08-11] MEDS ORDERED: LOSARTAN POTASSIUM 25 MG TAB PO ONE (13:00)
[2020-08-11] MEDS ORDERED: hydrALAZINE HCL 20 MG/ML VL IV ONE (13:00)
[2020-08-11] MEDS ORDERED: MORPHINE SULFATE INJECTION 2 MG/ML SYRG IV PRN (13:00)
[2020-08-11] MEDS ORDERED: NITROGLYCERIN 0.4 MG SL TAB SL PRN (13:00)
[2020-08-11 13:05] LABS: Albumin 3.3 g/dL (3.4-5.0); Calcium 8.7 mg/dL (8.5-10.1); Potassium 4.8 mmol/L (3.5-5.1)
[2020-08-11 13:08] LABS: BUN/Creatinine Ratio 17.9; Bilirubin, Total 0.3 mg/dL (0.2-1.0); Total Protein 7.9 g/dL (6.4-8.2)
[2020-08-11] MEDS ORDERED: GABAPENTIN 300 MG CAP PO SCH (14:00)
[2020-08-11] MEDS: hydrALAZINE HCL 25 MG TAB PO SCH ×3 (14:00→21:48)
[2020-08-11] MEDS ORDERED: PATIENTS OWN MEDICATION (Hydralazine HCl (Hydralazine Hydrochloride) 100 MG) PO SCH (14:00)
[2020-08-11] MEDS ORDERED: PATIENTS OWN MEDICATION (Sevelamer Carbonate (Renvela) 1 TAB) PO SCH (14:00)
[2020-08-11] MEDS: SODIUM BICARBONATE 650 MG TAB PO SCH ×2 (14:16→21:48)
[2020-08-11] MEDS: GABAPENTIN 100 MG CAP PO SCH ×2 (14:27→21:49)
[2020-08-11] MEDS: SEVELAMER 800 MG TAB PO SCH (17:33)
[2020-08-11] MEDS ORDERED: PATIENTS OWN MEDICATION (Atorvastatin Calcium 1 TAB) PO SCH (18:00)
[2020-08-11] MEDS ORDERED: ACETAMINOPHEN 500 MG TAB PO ONE (18:42)
[2020-08-11] MEDS ORDERED: ACETAMINOPHEN 500 MG TAB PO PRN (18:45)
[2020-08-11] MEDS ORDERED: FURO40TA4 PO (19:32)
[2020-08-11] MEDS ORDERED: OMEP-260 PO (19:33)
[2020-08-11] MEDS ORDERED: LABE300T3 PO (19:35)
[2020-08-11] MEDS: ATORVASTATIN 20 MG TAB PO SCH (21:48)
[2020-08-12] MEDS ORDERED: hydrALAZINE HCL 20 MG/ML VL IV ONE (03:15)
[2020-08-12] MEDS: hydrALAZINE HCL 25 MG TAB PO SCH ×3 (06:00→21:40)
[2020-08-12] MEDS: GABAPENTIN 100 MG CAP PO SCH ×3 (06:25→21:42)
[2020-08-12] MEDS: SODIUM BICARBONATE 650 MG TAB PO SCH ×3 (06:25→21:43)
[2020-08-12] MEDS ORDERED: hydrALAZINE HCL 25 MG TAB ONE ×2 (06:33→06:35)
[2020-08-12 06:35] LABS: Basophils # (auto) 0.1 10 ^3/uL (0-0.2); Basophils % (auto) 1.8 % (0.0-2.0); Eosinophils # (auto) 0.2 10 ^3/uL (0-0.8); Eosinophils % (auto) 3.5 % (0.0-7.0); Hematocrit 34.4 % (36.0-46.0); Hemoglobin 11.6 g/dL (12.2-16.2); Lymphocytes # (auto) 0.7 10 ^3/uL (0.4-5.4); Lymphocytes % (auto) 14.5 % (10.0-50.0); Mean Corpuscular Hemoglobin 31.3 pg (28.0-32.0); Mean Corpuscular Hgb Conc. 33.6 g/dL (32.0-36.0); Mean Corpuscular Volume 93.1 fL (80.0-100.0); Monocytes # (auto) 0.5 10 ^3/uL (0-1.3); Monocytes % (auto) 9.1 % (0.0-12.0); Neutrophils # (auto) 3.6 10 ^3/uL (1.6-8.6); Neutrophils % (auto) 71.1 % (37.0-80.0); Red Blood Cells 3.69 10^6/uL (4.0-5.20)
[2020-08-12 06:50] LABS: Potassium 4.8 mmol/L (3.5-5.1)
[2020-08-12 06:54] LABS: BUN/Creatinine Ratio 19.1; Calcium 8.7 mg/dL (8.5-10.1)
[2020-08-12] MEDS ORDERED: SODIUM CHL 0.9% 1000 ML BAG XX ONE ×2 (07:00→15:00)
[2020-08-12] MEDS ORDERED: FEBUXOSTAT PO SCH (07:00)
[2020-08-12] MEDS ORDERED: LETROZOLE PO SCH (07:00)
[2020-08-12] MEDS: SEVELAMER 800 MG TAB PO SCH ×3 (07:56→17:55)
[2020-08-12] MEDS: FOLIC ACID 1 MG TAB PO SCH (07:57)
[2020-08-12] MEDS ORDERED: SODIUM ZIRCONIUM CYCL 10 GM PAK PO ONE ×2 (08:45→09:00)
[2020-08-12] MEDS: LETROZOLE 2.5MG PO SCH (10:00)
[2020-08-12] MEDS: FEBUXOSTAT 40MG PO SCH (10:00)
[2020-08-12] MEDS: FUROSEMIDE 40 MG TAB PO SCH (10:21)
[2020-08-12] MEDS: LOSARTAN POTASSIUM 25 MG TAB PO SCH (10:22)
[2020-08-12] MEDS: PANTOPRAZOLE 40 MG TAB PO SCH (10:22)
[2020-08-12] MEDS: amLODIPine BESYLATE 5 MG TAB PO SCH (10:22)
[2020-08-12] MEDS ORDERED: LIDOCAINE 2%HCL (LOCAL ANESTH.) INJ 20ML MDV ONE (10:39)
[2020-08-12] MEDS ORDERED: MIDAZOLAM HCL 2MG/2ML 2ml VIAL (1mg/ml) ONE (10:57)
[2020-08-12] MEDS ORDERED: fentaNYL CITRATE 100 MCG/2 ML VL ONE (10:57)
[2020-08-12] MEDS ORDERED: hydrALAZINE HCL 20 MG/ML VL ONE (11:21)
[2020-08-12] MEDS ORDERED: HEPARIN SODIUM (PORCINE) 5000 UNITS/ML 1ML VIAL ONE (11:23)
[2020-08-12] MEDS ORDERED: CATHFLO ACTIVASE (ALTEPLASE) 2 MG VIAL IV ONE ×2 (11:24→11:35)
[2020-08-12] MEDS ORDERED: HEPARIN 1,000 UNITS/ml 1ML VIAL ONE (12:19)
[2020-08-12 16:08] VITALS: BP 162/84
[2020-08-12 16:20] VITALS: BP 154/61
[2020-08-12] MEDS ORDERED: EPOETIN ALFA 10,000 UNIT/1 ML VIAL SC ONE (21:00)
[2020-08-12] MEDS: cloNIDine HCL 0.1 MG TAB PO SCH (21:40)
[2020-08-12] MEDS: ATORVASTATIN 20 MG TAB PO SCH (21:43)
[2020-08-12 22:00] VITALS: BP 162/67
[2020-08-13 05:00] VITALS: BP 145/70
[2020-08-13] MEDS: hydrALAZINE HCL 25 MG TAB PO SCH ×2 (06:02→14:38)
[2020-08-13] MEDS: SODIUM BICARBONATE 650 MG TAB PO SCH ×2 (06:02→14:37)
[2020-08-13] MEDS: GABAPENTIN 100 MG CAP PO SCH ×2 (06:02→14:38)
[2020-08-13] MEDS: FOLIC ACID 1 MG TAB PO SCH (07:00)
[2020-08-13 07:01] LABS: Basophils # (auto) 0.1 10 ^3/uL (0-0.2); Basophils % (auto) 1.2 % (0.0-2.0); Calcium 8.7 mg/dL (8.5-10.1); Eosinophils # (auto) 0.1 10 ^3/uL (0-0.8); Eosinophils % (auto) 1.5 % (0.0-7.0); Hemoglobin 11.7 g/dL (12.2-16.2); Lymphocytes # (auto) 0.8 10 ^3/uL (0.4-5.4); Lymphocytes % (auto) 11.3 % (10.0-50.0); Mean Corpuscular Hemoglobin 31.1 pg (28.0-32.0); Mean Corpuscular Hgb Conc. 33.4 g/dL (32.0-36.0); Mean Corpuscular Volume 92.9 fL (80.0-100.0); Monocytes # (auto) 0.7 10 ^3/uL (0-1.3); Monocytes % (auto) 10.2 % (0.0-12.0); Neutrophils # (auto) 5.4 10 ^3/uL (1.6-8.6); Neutrophils % (auto) 75.8 % (37.0-80.0); Potassium 3.9 mmol/L (3.5-5.1); Red Blood Cells 3.76 10^6/uL (4.0-5.20); Red Cell Distribution Width 16.9 % (11.8-14.3); White Blood Cell 7.2 10^3/uL (4.4-10.8)
[2020-08-13 08:00] VITALS: BP 149/63
[2020-08-13] MEDS: LOSARTAN POTASSIUM 25 MG TAB PO SCH (09:56)
[2020-08-13] MEDS: SEVELAMER 800 MG TAB PO SCH ×3 (09:56→18:00)
[2020-08-13] MEDS: cloNIDine HCL 0.1 MG TAB PO SCH (09:56)
[2020-08-13] MEDS: FUROSEMIDE 40 MG TAB PO SCH (09:57)
[2020-08-13] MEDS: amLODIPine BESYLATE 5 MG TAB PO SCH (09:57)
[2020-08-13] MEDS: PANTOPRAZOLE 40 MG TAB PO SCH (09:57)
[2020-08-13] MEDS: FEBUXOSTAT 40MG PO SCH (10:00)
[2020-08-13] MEDS: LETROZOLE 2.5MG PO SCH (10:00)
[2020-08-13 16:00] VITALS: BP 129/52
[2020-08-13 17:27] VITALS: BP 129/52
== END 2020-08-13 18:44 | disposition home or self-care (01) | DRG 252 ==
LOC: ER 11:16 → TELE 11:17 → TELE-CENTR 08-12 10:22
PROVIDERS: ADMIT Nurse Practitioner Acute Care; ATTEND Internal Medicine Nephrology
PROC: 5A1D70Z Performance of Urinary Filtration, Intermittent, Less than 6 Hours Per Day (ICD-10-PCS; principal; 2020-08-12)
PROC: 03CY3ZZ Extirpation of Matter from Upper Artery, Percutaneous Approach (ICD-10-PCS; 2020-08-12)
PROC: 03WY3JZ Revision of Synthetic Substitute in Upper Artery, Percutaneous Approach (ICD-10-PCS; 2020-08-12)
PROC: 037 Upper Arteries, Dilation (ICD-10-PCS; 2020-08-12)
PROC: 3E03317 Introduction of Other Thrombolytic into Peripheral Vein, Percutaneous Approach (ICD-10-PCS; 2020-08-12)
DX: T82.868A Thrombosis due to vascular prosthetic devices, implants and grafts, initial encounter (principal); N18.6 End stage renal disease; I12.0 Hypertensive chronic kidney disease with stage 5 chronic kidney disease or end stage renal disease; Z20.822 Contact with and (suspected) exposure to COVID-19; K21.9 Gastro-esophageal reflux disease without esophagitis; D63.8 Anemia in other chronic diseases classified elsewhere; M10.9 Gout, unspecified; I16.0 Hypertensive urgency; E78.5 Hyperlipidemia, unspecified; E11.22 Type 2 diabetes mellitus with diabetic chronic kidney disease; Y83.2 Surgical operation with anastomosis, bypass or graft as the cause of abnormal reaction of the patient, or of later complication, without mention of misadventure at the time of the procedure; Z99.2 Dependence on renal dialysis; Y92.89 Other specified places as the place of occurrence of the external cause; Z90.710 Acquired absence of both cervix and uterus; Z88.1 Allergy status to other antibiotic agents; Z80.0 Family history of malignant neoplasm of digestive organs; Z80.3 Family history of malignant neoplasm of breast; Z82.49 Family history of ischemic heart disease and other diseases of the circulatory system; Z85.3 Personal history of malignant neoplasm of breast
CPT/HCPCS: 36415; 36904; 37238; 71045; 76000; 76080; 76937; 80048; 80053; 85025; 85610; 85730; 86850; 86900; 86901; 87426; 90935; 96374; 96375; 99152; 99153; C1757; G0378; J0885; J1642; J2250

== ENCOUNTER → 2020-09-15 | Outpatient (CLI) | payer OTHER ==
[~2020-09-15] MED LIST changes: -FOLI1TAB6 PO; -FURO1TAB33 PO; +FURO40TA4 PO; -LABE100T4 PO; +LABE300T3 PO; +OMEP-260 PO; -OMEP20CA74 PO; -SODI650T PO
== END | disposition home or self-care (01) ==
LOC: XYW 15:20
PROVIDERS: ATTEND Podiatrist
DX: S93.421A Sprain of deltoid ligament of right ankle, initial encounter (principal); S92.351A Displaced fracture of fifth metatarsal bone, right foot, initial encounter for closed fracture; R60.0 Localized edema; M79.89 Other specified soft tissue disorders; M25.471 Effusion, right ankle; M19.071 Primary osteoarthritis, right ankle and foot; M85.671 Other cyst of bone, right ankle and foot; M77.31 Calcaneal spur, right foot; X58.XXXA Exposure to other specified factors, initial encounter; Y93.89 Activity, other specified; Y92.89 Other specified places as the place of occurrence of the external cause; Y99.8 Other external cause status
CPT/HCPCS: 73721

== ENCOUNTER 2021-11-18 13:36 | Inpatient (IN) | payer OTHER ==
[~2021-11-18] VITALS: Ht 165.1 cm; Wt 65.4 kg
[2021-11-18] MEDS ORDERED: SODIUM CHLORIDE 0.9% 1,000 ML IVB ONE (14:30)
[2021-11-18] MEDS ORDERED: ONDANSETRON HCL 4 MG/2 ML VIAL IV ONE (14:30)
[2021-11-18] MEDS ORDERED: LOPERAMIDE HCL 2 MG CAP/TAB PO ONE (14:30)
[2021-11-18 15:03] LABS: Basophils # (auto) 0.1 10 ^3/uL (0-0.2); Basophils % (auto) 0.4 % (0.0-2.0); Eosinophils # (auto) 0 10 ^3/uL (0-0.8); Eosinophils % (auto) 0.1 % (0.0-7.0); Hematocrit 37.9 % (36.0-46.0); Hemoglobin 12.7 g/dL (12.2-16.2); Lymphocytes # (auto) 0.3 10 ^3/uL (0.4-5.4); Lymphocytes % (auto) 2.2 % (10.0-50.0); Mean Corpuscular Hemoglobin 32.3 pg (28.0-32.0); Mean Corpuscular Hgb Conc. 33.5 g/dL (32.0-36.0); Mean Corpuscular Volume 96.5 fL (80.0-100.0); Monocytes # (auto) 0.6 10 ^3/uL (0-1.3); Monocytes % (auto) 4.8 % (0.0-12.0); Neutrophils # (auto) 11.5 10 ^3/uL (1.6-8.6); Neutrophils % (auto) 92.5 % (37.0-80.0); Nucleated Red Blood Cells % 0.1 %; Red Blood Cells 3.93 10^6/uL (4.0-5.20); Red Cell Distribution Width 15.2 % (11.8-14.3); White Blood Cell 12.5 10^3/uL (4.4-10.8)
[2021-11-18 15:27] LABS: Albumin 4.3 g/dL (3.4-5.0); Calcium 8.8 mg/dL (8.5-10.1); Potassium 5.2 mmol/L (3.5-5.1)
[2021-11-18 15:30] LABS: BUN/Creatinine Ratio 9.1; Bilirubin, Total 0.4 mg/dL (0.2-1.0)
[2021-11-18] MEDS ORDERED: NITROGLYCERIN 0.4 MG SL TAB SL PRN (16:45)
[2021-11-18] MEDS ORDERED: MORPHINE SULFATE INJECTION 2 MG/ML SYRG IV PRN ×2 (16:45→20:00)
[2021-11-18] MEDS ORDERED: SODIUM CHLORIDE 0.9% 1,000 ML IV ONE (17:15)
[2021-11-18] MEDS ORDERED: ACETAMINOPHEN 325 MG TAB PO PRN (20:00)
[2021-11-18] MEDS ORDERED: DOCUSATE SOD 100 MG CAP PO PRN (20:00)
[2021-11-18] MEDS ORDERED: ONDANSETRON HCL 4 MG/2 ML VIAL IV PRN (20:00)
[2021-11-18] MEDS ORDERED: LORazepam 0.5 MG TAB PO PRN (20:00)
[2021-11-18] MEDS ORDERED: PANTOPRAZOLE 40 MG/10 ML VIAL INJ IV ONE (20:00)
[2021-11-18 20:27] LABS: Magnesium 2.1 mg/dL (1.6-2.6); Phosphorus 3.6 mg/dL (2.5-4.90)
[2021-11-18 21:42] LABS: INR 1.1 (0.9-1.15); Partial Thromboplastin Time 27.4 sec (23.6-33.0)
[2021-11-18] MEDS ORDERED: ATORVASTATIN 20 MG TAB PO SCH (22:00)
[2021-11-18 22:58] VITALS: BP 146/62
[2021-11-18] MEDS: FLORASTOR (S. BOULARDII) 250 MG CAP PO SCH (23:25)
[2021-11-19] VITALS (10 sets, daily range): BP systolic 118–154; BP diastolic 47–90
[2021-11-19] MEDS ORDERED: AMLO-489 PO (02:13)
[2021-11-19] MEDS ORDERED: SODI650T PO (02:13)
[2021-11-19] MEDS ORDERED: FOLI1TAB6 PO (02:13)
[2021-11-19] MEDS ORDERED: MAGN400T40 PO (02:13)
[2021-11-19] MEDS ORDERED: FERR-20 PO (02:13)
[2021-11-19] MEDS ORDERED: CALC0.25 PO (02:13)
[2021-11-19] MEDS ORDERED: FURO1TAB31 PO (02:13)
[2021-11-19 05:17] LABS: Basophils # (auto) 0 10 ^3/uL (0-0.2); Basophils % (auto) 0.4 % (0.0-2.0); Eosinophils # (auto) 0 10 ^3/uL (0-0.8); Eosinophils % (auto) 0.1 % (0.0-7.0); Hemoglobin 11.7 g/dL (12.2-16.2); Lymphocytes # (auto) 0.2 10 ^3/uL (0.4-5.4); Lymphocytes % (auto) 1.4 % (10.0-50.0); Mean Corpuscular Hemoglobin 32.2 pg (28.0-32.0); Mean Corpuscular Hgb Conc. 33.4 g/dL (32.0-36.0); Mean Corpuscular Volume 96.3 fL (80.0-100.0); Monocytes # (auto) 0.5 10 ^3/uL (0-1.3); Monocytes % (auto) 4.5 % (0.0-12.0); Neutrophils # (auto) 10.5 10 ^3/uL (1.6-8.6); Neutrophils % (auto) 93.6 % (37.0-80.0); Red Blood Cells 3.63 10^6/uL (4.0-5.20); Red Cell Distribution Width 15.2 % (11.8-14.3); White Blood Cell 11.2 10^3/uL (4.4-10.8)
[2021-11-19 05:30] LABS: INR 1.1 (0.9-1.15); Partial Thromboplastin Time 27.9 sec (23.6-33.0)
[2021-11-19 05:55] LABS: Albumin 3.8 g/dL (3.4-5.0); BUN/Creatinine Ratio 10.5; Calcium 8.3 mg/dL (8.5-10.1); Magnesium 1.8 mg/dL (1.6-2.6); Potassium 4.8 mmol/L (3.5-5.1)
[2021-11-19 05:59] LABS: Bilirubin, Total 0.3 mg/dL (0.2-1.0); Phosphorus 4.3 mg/dL (2.5-4.90); Total Protein 7.7 g/dL (6.4-8.2)
[2021-11-19] MEDS: PANTOPRAZOLE 40 MG/10 ML VIAL INJ IV SCH (08:46)
[2021-11-19] MEDS: ASPirin 81 mg TAB PO SCH (08:47)
[2021-11-19] MEDS: FLORASTOR (S. BOULARDII) 250 MG CAP PO SCH (08:47)
[2021-11-19] MEDS ORDERED: ENOXAPARIN SOD 30 MG/0.3 ML SYRINGE SC SCH (10:00)
[2021-11-19] MEDS ORDERED: SODIUM CHL 0.9% 1000 ML BAG XX ONE (12:00)
[2021-11-19] MEDS ORDERED: ACETAMINOPHEN 650 mg PER 20.3 mL UD PO PRN (12:15)
[2021-11-19] MEDS ORDERED: SODIUM CHLORIDE 0.9% 500 ML IV ONE (12:15)
[2021-11-19] MEDS ORDERED: IBUPROFEN 600 MG TAB PO PRN (12:15)
[2021-11-19] MEDS ORDERED: VANCOMYCIN PER PHARMACY 0 MG IV STA (12:33)
[2021-11-19] MEDS ORDERED: levoFLOXacin 500MG 100 ML IV ONE (12:45)
[2021-11-19] MEDS ORDERED: VANCOMYCIN 1GM/250ML 250 ML IV ONE (14:00)
[2021-11-19] MEDS ORDERED: OPTISON 3ml Vial for INJ IV ONE (15:01)
[2021-11-19] MEDS ORDERED: DOPamine 1600MCG/ML D5W 250 ML IV SCH (16:00)
[2021-11-20] VITALS (22 sets, daily range): BP systolic 111–161; BP diastolic 44–68
[2021-11-20] MEDS: HYDROcodone-ACET 5/325MG TAB PO PRN (04:37)
[2021-11-20 05:48] LABS: Basophils # (auto) 0 10 ^3/uL (0-0.2); Basophils % (auto) 0.3 % (0.0-2.0); Eosinophils # (auto) 0 10 ^3/uL (0-0.8); Hematocrit 34.1 % (36.0-46.0); Hemoglobin 12.1 g/dL (12.2-16.2); Lymphocytes # (auto) 0.5 10 ^3/uL (0.4-5.4); Mean Corpuscular Hemoglobin 33.4 pg (28.0-32.0); Mean Corpuscular Hgb Conc. 35.4 g/dL (32.0-36.0); Mean Corpuscular Volume 94.3 fL (80.0-100.0); Monocytes # (auto) 0.8 10 ^3/uL (0-1.3); Neutrophils # (auto) 8.1 10 ^3/uL (1.6-8.6); Neutrophils % (auto) 85.7 % (37.0-80.0); Red Blood Cells 3.61 10^6/uL (4.0-5.20); Red Cell Distribution Width 14.5 % (11.8-14.3); White Blood Cell 9.4 10^3/uL (4.4-10.8)
[2021-11-20] MEDS: metroNIDAZOLE 500MG/100ML 100 ML IV SCH ×4 (06:00→23:45)
[2021-11-20 06:01] LABS: Calcium 7.6 mg/dL (8.5-10.1); Potassium 3.4 mmol/L (3.5-5.1)
[2021-11-20 06:04] LABS: Albumin 3.3 g/dL (3.4-5.0); BUN/Creatinine Ratio 9.7
[2021-11-20 06:07] LABS: Bilirubin, Total 0.4 mg/dL (0.2-1.0); Total Protein 7.4 g/dL (6.4-8.2)
[2021-11-20] MEDS ORDERED: HEPARIN SODIUM (PORCINE) 5000 UNITS/ML 1ML VIAL SC SCH (10:00)
[2021-11-20] MEDS: PANTOPRAZOLE 40 MG/10 ML VIAL INJ IV SCH (10:52)
[2021-11-20] MEDS: ASPirin 81 mg TAB PO SCH (10:53)
[2021-11-20] MEDS ORDERED: ATORVASTATIN 20 MG TAB PO ONE (14:15)
[2021-11-20 15:20] LABS: CRP High Sensitivity 0.915 mg/dL (< 0.3)
[2021-11-20] MEDS: ENOXAPARIN SOD 60 MG/0.6 ML SYRINGE SC SCH (16:55)
[2021-11-20] MEDS: ATORVASTATIN 20 MG TAB PO SCH (23:53)
[2021-11-21] VITALS (20 sets, daily range): BP systolic 119–193; BP diastolic 41–71
[2021-11-21] MEDS: hydrALAZINE HCL 20 MG/ML VL IV PRN ×3 (00:26→17:24)
[2021-11-21] MEDS: metroNIDAZOLE 500MG/100ML 100 ML IV SCH ×3 (06:09→22:00)
[2021-11-21] MEDS: PANTOPRAZOLE 40 MG/10 ML VIAL INJ IV SCH (11:16)
[2021-11-21] MEDS: levoFLOXacin 500MG 100 ML IV SCH (11:17)
[2021-11-21] MEDS: ASPirin 81 mg TAB PO SCH (11:17)
[2021-11-21] MEDS: ENOXAPARIN SOD 60 MG/0.6 ML SYRINGE SC SCH (11:18)
[2021-11-21] MEDS ORDERED: METOPROLOL TARTRATE 1MG/1ML-5ML VIAL IV ONE (12:30)
[2021-11-21] MEDS: ATORVASTATIN 20 MG TAB PO SCH (22:00)
[2021-11-22] VITALS (19 sets, daily range): BP systolic 133–194; BP diastolic 51–77
[2021-11-22] MEDS: hydrALAZINE HCL 20 MG/ML VL IV PRN (03:07)
[2021-11-22] MEDS: metroNIDAZOLE 500MG/100ML 100 ML IV SCH ×3 (06:00→21:24)
[2021-11-22 08:53] LABS: Urine Bacteria NONE SEEN /hpf (None Seen); Urine Blood Negative /uL (Negative); Urine Specific Gravity 1.015 (1.001-1.035); Urine WBC <1 /hpf (0 - 5)
[2021-11-22] MEDS ORDERED: HEPARIN IN NS 1000Units/500mL 1,500 ML ONE (08:54)
[2021-11-22] MEDS ORDERED: IODIXANOL 320MG/ML 100ML BTL IV ONE (08:54)
[2021-11-22] MEDS ORDERED: LIDOCAINE 2%HCL (LOCAL ANESTH.) INJ 10ml MDV ONE (08:54)
[2021-11-22 08:58] LABS: Alcohol, Urine < 3.0 mg/dL (0-10); Amphetamine Screen, Urine NEGATIVE (NEGATIVE); Barbiturate Scree,Urine NEGATIVE (NEGATIVE); Benzodiazephine Screen, Urine NEGATIVE (NEGATIVE); Cannabinoid Screen, Urine NEGATIVE (NEGATIVE); Cocaine Screen, Urine NEGATIVE (NEGATIVE); Opiate Scree,Urine NEGATIVE (NEGATIVE); Phencyclidine Screen, Urine NEGATIVE (NEGATIVE); Protein, Urine 234.6 mg/dL (0.0-11.9)
[2021-11-22] MEDS ORDERED: HEPARIN SODIUM (PORCINE) 5000 UNITS/ML 1ML VIAL ONE (09:14)
[2021-11-22] MEDS ORDERED: ANGIOMAX 250 MG VIAL IV ONE (09:14)
[2021-11-22] MEDS ORDERED: VERAPAMIL 2.5MG/ML INJ 2ML VIAL IV ONE (09:15)
[2021-11-22] MEDS ORDERED: MIDAZOLAM HCL 2MG/2ML 2ml VIAL (1mg/ml) ONE (09:15)
[2021-11-22] MEDS ORDERED: SODIUM CHL 0.9% 0 ML ONE (09:15)
[2021-11-22] MEDS ORDERED: fentaNYL CITRATE 100 MCG/2 ML VL ONE (09:15)
[2021-11-22] MEDS ORDERED: SODIUM CHL 0.9% 1000 ML BAG XX ONE (11:30)
[2021-11-22] MEDS: amLODIPine BESYLATE 5 MG TAB PO SCH (13:08)
[2021-11-22] MEDS: ASPirin 81 mg TAB PO SCH (13:08)
[2021-11-22 14:08] LABS: Anion Gap 15 (5-15); Blood Urea Nitrogen 65 mg/dL (7-18); Calcium 7.7 mg/dL (8.5-10.1); Carbon Dioxide 17 mmol/L (21-32); Chloride 109 mmol/L (98-107); GFR African American 9 mL/min; GFR Non-African American 7 mL/min; Glucose 99 mg/dL (74-106); Potassium 3.6 mmol/L (3.5-5.1); Sodium 141 mmol/L (136-145)
[2021-11-22] MEDS: LABETALOL HCL 5 MG/ML 4ML SYRINGE IV PRN (16:53)
[2021-11-22] MEDS: HYDROcodone-ACET 5/325MG TAB PO PRN (19:16)
[2021-11-22] MEDS: hydrALAZINE HCL 25 MG TAB PO SCH (21:25)
[2021-11-22] MEDS: ATORVASTATIN 20 MG TAB PO SCH (21:25)
[2021-11-23] VITALS (31 sets, daily range): BP systolic 120–208; BP diastolic 52–89
[2021-11-23 05:54] LABS: Hematocrit 29.2 % (36.0-46.0); Hemoglobin 10.1 g/dL (12.2-16.2); Mean Corpuscular Hgb Conc. 34.5 g/dL (32.0-36.0); Mean Corpuscular Volume 95.6 fL (80.0-100.0); Red Blood Cells 3.06 10^6/uL (4.0-5.20)
[2021-11-23 05:58] LABS: Band Neutrophils % (manual) 0; Basophils % (manual) 0 (0.0-2.0); Blast Cells 0; Eosinophils % (manual) 0 (0-7); Metamyelocytes % 0; Myelocytes % 0; Promyelocytes % 0
[2021-11-23] MEDS: metroNIDAZOLE 500MG/100ML 100 ML IV SCH ×3 (06:06→22:14)
[2021-11-23] MEDS ORDERED: SODIUM CHL 0.9% 1000 ML BAG XX ONE (07:00)
[2021-11-23] MEDS: hydrALAZINE HCL 25 MG TAB PO SCH ×3 (07:01→22:14)
[2021-11-23 08:47] LABS: Lymphocytes % (manual) 16 (10.0-50.0); Monocytes % (manual) 14 (0-12); Reactive Lymphocytes 1
[2021-11-23 09:30] LABS: Albumin 2.7 g/dL (3.4-5.0); Calcium 7.4 mg/dL (8.5-10.1); Potassium 3.6 mmol/L (3.5-5.1)
[2021-11-23 09:34] LABS: BUN/Creatinine Ratio 12.1; Bilirubin, Total 0.3 mg/dL (0.2-1.0); Total Protein 6.2 g/dL (6.4-8.2)
[2021-11-23] MEDS: ASPirin 81 mg TAB PO SCH (10:42)
[2021-11-23] MEDS: levoFLOXacin 500MG 100 ML IV SCH (10:42)
[2021-11-23] MEDS: amLODIPine BESYLATE 5 MG TAB PO SCH (17:00)
[2021-11-23] MEDS: HYDROcodone-ACET 5/325MG TAB PO PRN (19:56)
[2021-11-23] MEDS ORDERED: EPOETIN ALFA-EPBX 10,000 UNIT/1ML VIAL SC ONE (21:00)
[2021-11-23] MEDS: ATORVASTATIN 20 MG TAB PO SCH (22:14)
[2021-11-24] MEDS: LABETALOL HCL 5 MG/ML 4ML SYRINGE IV PRN ×3 (05:31→20:48)
[2021-11-24 05:35] VITALS: BP 160/74
[2021-11-24] MEDS: metroNIDAZOLE 500MG/100ML 100 ML IV SCH ×3 (06:14→22:35)
[2021-11-24] MEDS: hydrALAZINE HCL 25 MG TAB PO SCH ×3 (06:19→22:34)
[2021-11-24] MEDS: ASPirin 81 mg TAB PO SCH (08:32)
[2021-11-24] MEDS: HYDROcodone-ACET 5/325MG TAB PO PRN (08:33)
[2021-11-24] MEDS: amLODIPine BESYLATE 5 MG TAB PO SCH (08:33)
[2021-11-24 09:00] VITALS: BP 163/61
[2021-11-24] MEDS ORDERED: METOPROLOL TARTRATE 25 MG TAB PO SCH (10:00)
[2021-11-24 11:04] LABS: Calcium 7.8 mg/dL (8.5-10.1); Potassium 3.2 mmol/L (3.5-5.1)
[2021-11-24 11:07] LABS: BUN/Creatinine Ratio 9.2
[2021-11-24] MEDS ORDERED: POTASSIUM CHL 20 Meq TABLET PO ONE (11:45)
[2021-11-24 12:37] VITALS: BP 167/61
[2021-11-24] MEDS ORDERED: SODIUM CHLORIDE 0.9% 1,000 ML IV ONE (15:30)
[2021-11-24] MEDS ORDERED: ZOLPIDEM TARTRATE 5 MG TAB PO PRN (15:30)
[2021-11-24 17:00] VITALS: BP 162/66
[2021-11-24 21:45] VITALS: BP 186/69
[2021-11-24] MEDS ORDERED: CARVEDILOL 3.125 MG TAB PO SCH (22:00)
[2021-11-24] MEDS: ATORVASTATIN 20 MG TAB PO SCH (22:34)
[2021-11-25 05:00] VITALS: BP 169/66
[2021-11-25] MEDS ORDERED: SODIUM CHL 0.9% 1000 ML BAG XX ONE (05:45)
[2021-11-25] MEDS: hydrALAZINE HCL 25 MG TAB PO SCH ×2 (06:18→14:52)
[2021-11-25] MEDS: metroNIDAZOLE 500MG/100ML 100 ML IV SCH (06:19)
[2021-11-25 08:34] VITALS: BP 173/70
[2021-11-25] MEDS: amLODIPine BESYLATE 5 MG TAB PO SCH (09:47)
[2021-11-25] MEDS: ASPirin 81 mg TAB PO SCH (09:47)
[2021-11-25] MEDS: levoFLOXacin 500MG 100 ML IV SCH (09:47)
[2021-11-25] MEDS ORDERED: CARVEDILOL 12.5 MG TAB PO SCH (10:00)
[2021-11-25] MEDS ORDERED: levoFLOXacin 500 MG TAB PO ONE (11:30)
[2021-11-25] MEDS ORDERED: LEVO-28 PO (11:32)
[2021-11-25] MEDS ORDERED: METR500T PO (11:32)
[2021-11-25] MEDS ORDERED: ONDA-144 PO (11:38)
[2021-11-25] MEDS ORDERED: CAR125T PO (11:38)
[2021-11-25] MEDS ORDERED: CLON0.1T PO (11:47)
[2021-11-25] MEDS: LABETALOL HCL 5 MG/ML 4ML SYRINGE IV PRN (12:55)
[2021-11-25 12:57] VITALS: BP 192/73
[2021-11-25 13:31] VITALS: BP 192/73
[2021-11-25] MEDS ORDERED: metroNIDAZOLE 500 MG TAB PO SCH (14:00)
== END 2021-11-25 14:53 | disposition home or self-care (01) | DRG 280 ==
LOC: ER 13:36 → TELE 16:33 → TELE-CENTR 22:53 → DOU IN ICU 11-19 12:50 → TELE-EAST 11-23 23:24
PROVIDERS: ADMIT Hospitalist; ATTEND Internal Medicine
PROC: 5A1D70Z Performance of Urinary Filtration, Intermittent, Less than 6 Hours Per Day (ICD-10-PCS; 2021-11-19)
PROC: B211YZZ Fluoroscopy of Multiple Coronary Arteries using Other Contrast (ICD-10-PCS; principal; 2021-11-22)
PROC: 4A023N7 Measurement of Cardiac Sampling and Pressure, Left Heart, Percutaneous Approach (ICD-10-PCS; 2021-11-22)
PROC: 5A1D70Z Performance of Urinary Filtration, Intermittent, Less than 6 Hours Per Day (ICD-10-PCS; 2021-11-23)
PROC: 5A1D70Z Performance of Urinary Filtration, Intermittent, Less than 6 Hours Per Day (ICD-10-PCS; 2021-11-25)
DX: I21.4 Non-ST elevation (NSTEMI) myocardial infarction (principal); N18.6 End stage renal disease; I50.43 Acute on chronic combined systolic (congestive) and diastolic (congestive) heart failure; I31.3 Pericardial effusion (noninflammatory); I47.2 Ventricular tachycardia; I13.2 Hypertensive heart and chronic kidney disease with heart failure and with stage 5 chronic kidney disease, or end stage renal disease; K57.92 Diverticulitis of intestine, part unspecified, without perforation or abscess without bleeding; D64.9 Anemia, unspecified; E86.9 Volume depletion, unspecified; E87.5 Hyperkalemia; E87.6 Hypokalemia; I27.20 Pulmonary hypertension, unspecified; K29.70 Gastritis, unspecified, without bleeding; R91.1 Solitary pulmonary nodule; Z20.822 Contact with and (suspected) exposure to COVID-19; K21.9 Gastro-esophageal reflux disease without esophagitis; K52.9 Noninfective gastroenteritis and colitis, unspecified; Z88.8 Allergy status to other drugs, medicaments and biological substances; Z90.5 Acquired absence of kidney; Z85.3 Personal history of malignant neoplasm of breast; Z85.528 Personal history of other malignant neoplasm of kidney; Z90.710 Acquired absence of both cervix and uterus
CPT/HCPCS: 36415; 70450; 71045; 74176; 80048; 80053; 80061; 80202; 80307; 81001; 82550; 82728; 83036; 83615; 83690; 83735; 83880; 83970; 84100; 84156; 84443; 84484; 85007; 85025; 85027; 85048; 85379; 85610; 85652; 85730; 86141; 87040; 87045; 87340; 87427; 87493; 90935; 93005; 93306; 96374; 97163; 99152; C9113; G0378; J1956; J2001; J2250; J2405; J3490; Q9956; Q9967

== ENCOUNTER 2021-11-30 17:22 | Inpatient (IN) | payer OTHER ==
[~2021-11-30] VITALS: Ht 165.1 cm; Wt 67.0 kg
[~2021-11-30 17:22] MED LIST changes: +AMLO-489 PO; +CALC0.25 PO; +CAR125T PO; +CLON0.1T PO; +FERR-20 PO; +FOLI1TAB6 PO; +FURO1TAB31 PO; -FURO40TA4 PO; -LABE300T3 PO; +LEVO-28 PO; +METR500T PO; +ONDA-144 PO
[2021-11-30] MEDS ORDERED: PIPERACILLIN-TAZOB 2.25GM 50 ML IV ONE (18:30)
[2021-11-30 19:27] LABS: Basophils # (auto) 0 10 ^3/uL (0-0.2); Basophils % (auto) 0.2 % (0.0-2.0); Eosinophils # (auto) 0.1 10 ^3/uL (0-0.8); Eosinophils % (auto) 0.8 % (0.0-7.0); Hematocrit 29.3 % (36.0-46.0); Lymphocytes # (auto) 0.9 10 ^3/uL (0.4-5.4); Lymphocytes % (auto) 7.3 % (10.0-50.0); Mean Corpuscular Hemoglobin 32.4 pg (28.0-32.0); Mean Corpuscular Hgb Conc. 34.1 g/dL (32.0-36.0); Mean Corpuscular Volume 94.9 fL (80.0-100.0); Monocytes # (auto) 0.9 10 ^3/uL (0-1.3); Monocytes % (auto) 7.6 % (0.0-12.0); Neutrophils # (auto) 10.3 10 ^3/uL (1.6-8.6); Neutrophils % (auto) 84.1 % (37.0-80.0); Red Blood Cells 3.08 10^6/uL (4.0-5.20); Red Cell Distribution Width 14.4 % (11.8-14.3); White Blood Cell 12.2 10^3/uL (4.4-10.8)
[2021-11-30 19:46] LABS: Albumin 3.1 g/dL (3.4-5.0); Calcium 8.2 mg/dL (8.5-10.1); Potassium 4.7 mmol/L (3.5-5.1)
[2021-11-30 19:47] LABS: INR 1.06 (0.9-1.15)
[2021-11-30 19:55] LABS: BUN/Creatinine Ratio 10.3; Bilirubin, Total 0.4 mg/dL (0.2-1.0); Total Protein 7.1 g/dL (6.4-8.2)
[2021-11-30] MEDS ORDERED: DEXTROSE (50%) 50ML SYRG IV PRN (22:00)
[2021-11-30] MEDS ORDERED: ONDANSETRON HCL 4 MG/2 ML VIAL IV PRN (22:00)
[2021-11-30] MEDS: CARVEDILOL 3.125 MG TAB PO SCH (22:37)
[2021-12-01] MEDS: InsuLIN REG 1unit/0.01ml Soln (100units/ml) SC SCH ×5 (00:26→23:36)
[2021-12-01] MEDS: ACCU-CHEK COMFORT CURVE STRIP VI SCH ×5 (00:27→23:36)
[2021-12-01 00:30] VITALS: BP 156/74
[2021-12-01] MEDS: cefTRIAXone 1GM/50ML D5W 50 ML IV SCH ×2 (01:33→09:32)
[2021-12-01 05:00] VITALS: BP 133/61
[2021-12-01 06:57] LABS: Basophils # (auto) 0 10 ^3/uL (0-0.2); Eosinophils # (auto) 0.1 10 ^3/uL (0-0.8); Hemoglobin 9.2 g/dL (12.2-16.2)
[2021-12-01 06:59] LABS: Basophils % (auto) 0.2 % (0.0-2.0); Eosinophils % (auto) 0.7 % (0.0-7.0); Hematocrit 25.9 % (36.0-46.0); Lymphocytes # (auto) 0.7 10 ^3/uL (0.4-5.4); Mean Corpuscular Hemoglobin 33.7 pg (28.0-32.0); Mean Corpuscular Hgb Conc. 35.6 g/dL (32.0-36.0); Mean Corpuscular Volume 94.6 fL (80.0-100.0); Monocytes % (auto) 8.5 % (0.0-12.0); Neutrophils # (auto) 9.5 10 ^3/uL (1.6-8.6); Neutrophils % (auto) 84.6 % (37.0-80.0); Nucleated Red Blood Cells % 0.1 %; Red Blood Cells 2.74 10^6/uL (4.0-5.20); Red Cell Distribution Width 14.4 % (11.8-14.3); White Blood Cell 11.3 10^3/uL (4.4-10.8)
[2021-12-01 07:13] LABS: Albumin 2.6 g/dL (3.4-5.0); Calcium 7.8 mg/dL (8.5-10.1); Potassium 4.5 mmol/L (3.5-5.1)
[2021-12-01 07:19] LABS: Bilirubin, Total 0.3 mg/dL (0.2-1.0)
[2021-12-01] MEDS: SEVELAMER 800 MG TAB PO SCH ×3 (08:02→17:08)
[2021-12-01] MEDS: CARVEDILOL 3.125 MG TAB PO SCH ×2 (09:33→22:06)
[2021-12-01] MEDS: FUROSEMIDE 40 MG TAB PO SCH (09:34)
[2021-12-01] MEDS: amLODIPine BESYLATE 5 MG TAB PO SCH (09:35)
[2021-12-01] MEDS: PANTOPRAZOLE 40 MG TAB PO SCH (09:35)
[2021-12-01 09:38] VITALS: BP 153/68
[2021-12-01] MEDS ORDERED: VANCOMYCIN PER PHARMACY 0 MG IV SCH (11:45)
[2021-12-01] MEDS ORDERED: VANCOMYCIN 1GM/250ML 250 ML IV ONE (12:30)
[2021-12-01 12:33] VITALS: BP 142/72
[2021-12-01 16:33] VITALS: BP 150/77
[2021-12-01] MEDS: ATORVASTATIN 20 MG TAB PO SCH (22:06)
[2021-12-01] MEDS: metroNIDAZOLE 500MG/100ML 100 ML IV SCH (22:06)
[2021-12-01 22:08] VITALS: BP 169/63
[2021-12-01] MEDS: ACETAMINOPHEN 325 MG TAB PO PRN (22:43)
[2021-12-02] VITALS (7 sets, daily range): BP systolic 147–176; BP diastolic 56–67
[2021-12-02 05:37] LABS: Basophils # (auto) 0.1 10 ^3/uL (0-0.2); Basophils % (auto) 0.8 % (0.0-2.0); Eosinophils # (auto) 0.1 10 ^3/uL (0-0.8); Eosinophils % (auto) 0.9 % (0.0-7.0); Hematocrit 27.3 % (36.0-46.0); Hemoglobin 9.7 g/dL (12.2-16.2); Lymphocytes # (auto) 0.6 10 ^3/uL (0.4-5.4); Lymphocytes % (auto) 5.6 % (10.0-50.0); Mean Corpuscular Hemoglobin 33.9 pg (28.0-32.0); Mean Corpuscular Hgb Conc. 35.7 g/dL (32.0-36.0); Monocytes % (auto) 10.3 % (0.0-12.0); Neutrophils # (auto) 8.2 10 ^3/uL (1.6-8.6); Neutrophils % (auto) 82.4 % (37.0-80.0); Red Blood Cells 2.88 10^6/uL (4.0-5.20); Red Cell Distribution Width 14.6 % (11.8-14.3)
[2021-12-02] MEDS: ACCU-CHEK COMFORT CURVE STRIP VI SCH ×4 (05:57→23:46)
[2021-12-02] MEDS: InsuLIN REG 1unit/0.01ml Soln (100units/ml) SC SCH ×4 (05:57→23:46)
[2021-12-02] MEDS: metroNIDAZOLE 500MG/100ML 100 ML IV SCH ×3 (05:57→21:17)
[2021-12-02] MEDS ORDERED: CATHFLO ACTIVASE (ALTEPLASE) 2 MG VIAL IV ONE (07:30)
[2021-12-02] MEDS: SEVELAMER 800 MG TAB PO SCH ×3 (07:49→17:35)
[2021-12-02] MEDS ORDERED: IODIXANOL 320MG/ML 100ML BTL IV ONE (07:50)
[2021-12-02] MEDS ORDERED: LIDOCAINE 2%HCL (LOCAL ANESTH.) INJ 10ml MDV ONE (07:50)
[2021-12-02] MEDS ORDERED: HEPARIN IN NS 1000Units/500mL 1,500 ML ONE (07:51)
[2021-12-02] MEDS ORDERED: MIDAZOLAM HCL 2MG/2ML 2ml VIAL (1mg/ml) ONE (07:57)
[2021-12-02] MEDS ORDERED: fentaNYL CITRATE 100 MCG/2 ML VL ONE (07:57)
[2021-12-02] MEDS ORDERED: CATHFLO ACTIVASE (ALTEPLASE) 2 MG VIAL ONE (08:06)
[2021-12-02] MEDS ORDERED: hydrALAZINE HCL 20 MG/ML VL ONE (09:55)
[2021-12-02] MEDS: CARVEDILOL 3.125 MG TAB PO SCH ×2 (11:40→21:20)
[2021-12-02] MEDS: PANTOPRAZOLE 40 MG TAB PO SCH (11:41)
[2021-12-02] MEDS: FUROSEMIDE 40 MG TAB PO SCH (11:41)
[2021-12-02] MEDS: amLODIPine BESYLATE 5 MG TAB PO SCH (11:42)
[2021-12-02] MEDS: cefTRIAXone 1GM/50ML D5W 50 ML IV SCH (11:55)
[2021-12-02] MEDS ORDERED: VANCOMYCIN 1GM/250ML 250 ML IV ONE (16:00)
[2021-12-02] MEDS: ATORVASTATIN 20 MG TAB PO SCH (21:17)
[2021-12-03 05:00] VITALS: BP 109/46
[2021-12-03] MEDS: metroNIDAZOLE 500MG/100ML 100 ML IV SCH ×2 (05:01→16:17)
[2021-12-03] MEDS: ACCU-CHEK COMFORT CURVE STRIP VI SCH ×3 (05:02→18:25)
[2021-12-03] MEDS: InsuLIN REG 1unit/0.01ml Soln (100units/ml) SC SCH ×3 (05:02→18:00)
[2021-12-03] MEDS ORDERED: SODIUM CHL 0.9% 1000 ML BAG XX ONE (07:00)
[2021-12-03 07:59] LABS: Basophils # (auto) 0.1 10 ^3/uL (0-0.2); Basophils % (auto) 0.8 % (0.0-2.0); Eosinophils # (auto) 0.1 10 ^3/uL (0-0.8); Eosinophils % (auto) 1.1 % (0.0-7.0); Hematocrit 27.2 % (36.0-46.0); Hemoglobin 9.5 g/dL (12.2-16.2); Lymphocytes # (auto) 0.7 10 ^3/uL (0.4-5.4); Lymphocytes % (auto) 6.5 % (10.0-50.0); Mean Corpuscular Hemoglobin 33.4 pg (28.0-32.0); Mean Corpuscular Hgb Conc. 34.8 g/dL (32.0-36.0); Mean Corpuscular Volume 95.9 fL (80.0-100.0); Monocytes # (auto) 0.9 10 ^3/uL (0-1.3); Monocytes % (auto) 9.3 % (0.0-12.0); Neutrophils # (auto) 8.2 10 ^3/uL (1.6-8.6); Neutrophils % (auto) 82.3 % (37.0-80.0); Red Blood Cells 2.83 10^6/uL (4.0-5.20); Red Cell Distribution Width 14.3 % (11.8-14.3)
[2021-12-03 08:00] VITALS: BP 101/62
[2021-12-03] MEDS: SEVELAMER 800 MG TAB PO SCH ×3 (09:06→18:00)
[2021-12-03] MEDS: cefTRIAXone 1GM/50ML D5W 50 ML IV SCH (09:06)
[2021-12-03] MEDS: CARVEDILOL 3.125 MG TAB PO SCH ×2 (09:50→11:49)
[2021-12-03] MEDS: amLODIPine BESYLATE 5 MG TAB PO SCH ×2 (09:51→11:50)
[2021-12-03] MEDS: PANTOPRAZOLE 40 MG TAB PO SCH (09:52)
[2021-12-03] MEDS: FUROSEMIDE 40 MG TAB PO SCH (09:52)
[2021-12-03] MEDS: ACETAMINOPHEN 325 MG TAB PO PRN (09:55)
[2021-12-03 12:00] VITALS: BP 168/61
[2021-12-03 16:00] VITALS: BP 170/67
[2021-12-03 17:08] VITALS: BP 168/61
[2021-12-03] MEDS ORDERED: EPOETIN ALFA-EPBX 10,000 UNIT/1ML VIAL SC ONE (21:00)
== END 2021-12-03 19:40 | disposition home or self-care (01) | DRG 252 ==
LOC: ER 17:22 → OVERFLOW 21:51 → WEST WING 23:30
PROVIDERS: ADMIT Nurse Practitioner; ATTEND Internal Medicine
PROC: 03CY3ZZ Extirpation of Matter from Upper Artery, Percutaneous Approach (ICD-10-PCS; principal; 2021-12-02)
PROC: 03783ZZ Dilation of Left Brachial Artery, Percutaneous Approach (ICD-10-PCS; 2021-12-02)
PROC: B51WYZZ Fluoroscopy of Dialysis Shunt/Fistula using Other Contrast (ICD-10-PCS; 2021-12-02)
PROC: B517YZZ Fluoroscopy of Left Subclavian Vein using Other Contrast (ICD-10-PCS; 2021-12-02)
PROC: 3E05317 Introduction of Other Thrombolytic into Peripheral Artery, Percutaneous Approach (ICD-10-PCS; 2021-12-02)
PROC: B31JYZZ Fluoroscopy of Left Upper Extremity Arteries using Other Contrast (ICD-10-PCS; 2021-12-02)
PROC: 5A1D70Z Performance of Urinary Filtration, Intermittent, Less than 6 Hours Per Day (ICD-10-PCS; 2021-12-03)
DX: T82.510A Breakdown (mechanical) of surgically created arteriovenous fistula, initial encounter (principal); N18.6 End stage renal disease; I12.0 Hypertensive chronic kidney disease with stage 5 chronic kidney disease or end stage renal disease; L03.114 Cellulitis of left upper limb; D63.1 Anemia in chronic kidney disease; E11.22 Type 2 diabetes mellitus with diabetic chronic kidney disease; E78.5 Hyperlipidemia, unspecified; Z20.822 Contact with and (suspected) exposure to COVID-19; Y83.8 Other surgical procedures as the cause of abnormal reaction of the patient, or of later complication, without mention of misadventure at the time of the procedure; Z80.0 Family history of malignant neoplasm of digestive organs; Z80.3 Family history of malignant neoplasm of breast; Z82.49 Family history of ischemic heart disease and other diseases of the circulatory system; Z82.5 Family history of asthma and other chronic lower respiratory diseases; Z90.710 Acquired absence of both cervix and uterus; Z99.2 Dependence on renal dialysis; Z88.1 Allergy status to other antibiotic agents; Y92.89 Other specified places as the place of occurrence of the external cause
CPT/HCPCS: 36415; 37212; 71045; 75710; 75827; 76080; 80053; 80202; 82962; 85025; 85610; 86850; 86900; 86901; 87081; 90935; 93005; 93971; 99152; 99153; G0378; J0696; J1815; J2001; J2250; J2543; J3490; Q9967

== ENCOUNTER → 2022-05-05 | Outpatient (CLI) | payer OTHER ==
[2022-05-05 09:25] LABS: Basophils # (auto) 0 10 ^3/uL (0-0.2); Basophils % (auto) 0.7 % (0.0-2.0); Eosinophils # (auto) 0.1 10 ^3/uL (0-0.8); Eosinophils % (auto) 1.9 % (0.0-7.0); Hematocrit 32.8 % (36.0-46.0); Hemoglobin 11.1 g/dL (12.2-16.2); Lymphocytes # (auto) 0.9 10 ^3/uL (0.4-5.4); Lymphocytes % (auto) 13.3 % (10.0-50.0); Mean Corpuscular Hemoglobin 31.8 pg (28.0-32.0); Mean Corpuscular Hgb Conc. 33.9 g/dL (32.0-36.0); Monocytes # (auto) 0.5 10 ^3/uL (0-1.3); Monocytes % (auto) 7.7 % (0.0-12.0); Neutrophils # (auto) 5.3 10 ^3/uL (1.6-8.6); Neutrophils % (auto) 76.4 % (37.0-80.0); Red Blood Cells 3.49 10^6/uL (4.0-5.20); Red Cell Distribution Width 15.7 % (11.8-14.3); White Blood Cell 6.9 10^3/uL (4.4-10.8)
[2022-05-05 10:00] LABS: Albumin 4.2 g/dL (3.4-5.0); Calcium 8.6 mg/dL (8.5-10.1); Potassium 4.2 mmol/L (3.5-5.1)
[2022-05-05 10:03] LABS: % Iron Saturation 17.7 % (15-50)
[2022-05-05 10:14] LABS: BUN/Creatinine Ratio 6.9; Bilirubin, Total 0.7 mg/dL (0.2-1.0); Total Protein 8.1 g/dL (6.4-8.2); Uric Acid 1.7 mg/dL (2.6-6.0)
== END | disposition home or self-care (01) ==
LOC: LAB 09:03
PROVIDERS: ATTEND Internal Medicine
DX: I10 Essential (primary) hypertension (principal); D64.9 Anemia, unspecified
CPT/HCPCS: 36415; 80053; 82607; 83036; 83540; 83550; 83615; 84550; 85025

== ENCOUNTER → 2022-05-24 | Outpatient (CLI) | payer OTHER ==
[2022-05-24 09:34] LABS: Basophils # (auto) 0 10 ^3/uL (0-0.2); Basophils % (auto) 0.8 % (0.0-2.0); Eosinophils # (auto) 0.1 10 ^3/uL (0-0.8); Eosinophils % (auto) 1.9 % (0.0-7.0); Hematocrit 30.1 % (36.0-46.0); Hemoglobin 10.5 g/dL (12.2-16.2); Lymphocytes % (auto) 17.1 % (10.0-50.0); Mean Corpuscular Hemoglobin 33.6 pg (28.0-32.0); Mean Corpuscular Volume 96.1 fL (80.0-100.0); Monocytes # (auto) 0.5 10 ^3/uL (0-1.3); Monocytes % (auto) 8.7 % (0.0-12.0); Neutrophils # (auto) 4.2 10 ^3/uL (1.6-8.6); Neutrophils % (auto) 71.5 % (37.0-80.0); Red Blood Cells 3.13 10^6/uL (4.0-5.20); Red Cell Distribution Width 14.5 % (11.8-14.3); White Blood Cell 5.9 10^3/uL (4.4-10.8)
[2022-05-24 09:50] LABS: Calcium 8.9 mg/dL (8.5-10.1)
[2022-05-24 09:54] LABS: BUN/Creatinine Ratio 8.3; Bilirubin, Total 0.8 mg/dL (0.2-1.0); Total Protein 8.2 g/dL (6.4-8.2)
== END | disposition home or self-care (01) ==
LOC: LAB 09:09
PROVIDERS: ATTEND Internal Medicine
DX: C50.911 Malignant neoplasm of unspecified site of right female breast (principal)
CPT/HCPCS: 36415; 80053; 85025; 86300

== ENCOUNTER → 2022-07-29 | Outpatient (CLI) | payer OTHER | END | disposition home or self-care (01) | LOC: LAB 10:45 | PROVIDERS: ATTEND Family Medicine | DX: C44.90 Unspecified malignant neoplasm of skin, unspecified (principal) | CPT/HCPCS: 88302 ==

== ENCOUNTER → 2022-08-15 | Outpatient (CLI) | payer OTHER ==
[2022-08-15 11:28] LABS: Basophils # (auto) 0.1 10 ^3/uL (0-0.2); Basophils % (auto) 1.2 % (0.0-2.0); Eosinophils # (auto) 0.1 10 ^3/uL (0-0.8); Eosinophils % (auto) 1.6 % (0.0-7.0); Hematocrit 37.8 % (36.0-46.0); Hemoglobin 12.4 g/dL (12.2-16.2); Lymphocytes # (auto) 0.7 10 ^3/uL (0.4-5.4); Lymphocytes % (auto) 10.1 % (10.0-50.0); Mean Corpuscular Hemoglobin 31.8 pg (28.0-32.0); Mean Corpuscular Hgb Conc. 32.9 g/dL (32.0-36.0); Mean Corpuscular Volume 96.6 fL (80.0-100.0); Monocytes # (auto) 0.6 10 ^3/uL (0-1.3); Monocytes % (auto) 7.9 % (0.0-12.0); Neutrophils # (auto) 5.8 10 ^3/uL (1.6-8.6); Neutrophils % (auto) 79.2 % (37.0-80.0); Nucleated Red Blood Cells % 0.1 %; Red Blood Cells 3.91 10^6/uL (4.0-5.20); Red Cell Distribution Width 15.5 % (11.8-14.3); White Blood Cell 7.3 10^3/uL (4.4-10.8)
[2022-08-15 11:57] LABS: Calcium 8.6 mg/dL (8.5-10.1); Potassium 4.9 mmol/L (3.5-5.1)
[2022-08-15 12:00] LABS: BUN/Creatinine Ratio 11.6; Bilirubin, Total 0.5 mg/dL (0.2-1.0); Total Protein 7.7 g/dL (6.4-8.2)
== END | disposition home or self-care (01) ==
LOC: LAB 11:12
PROVIDERS: ATTEND Internal Medicine
DX: C50.111 Malignant neoplasm of central portion of right female breast (principal)
CPT/HCPCS: 36415; 80053; 85025; 86300

== ENCOUNTER → 2022-09-26 | Outpatient (CLI) | payer OTHER ==
[2022-09-26 09:09] LABS: Basophils # (auto) 0.1 10 ^3/uL (0-0.2); Basophils % (auto) 0.9 % (0.0-2.0); Eosinophils # (auto) 0.2 10 ^3/uL (0-0.8); Eosinophils % (auto) 3.6 % (0.0-7.0); Hemoglobin 12.7 g/dL (12.2-16.2); Lymphocytes # (auto) 0.9 10 ^3/uL (0.4-5.4); Lymphocytes % (auto) 13.6 % (10.0-50.0); Mean Corpuscular Hemoglobin 32.9 pg (28.0-32.0); Mean Corpuscular Hgb Conc. 34.2 g/dL (32.0-36.0); Mean Corpuscular Volume 96.2 fL (80.0-100.0); Monocytes # (auto) 0.6 10 ^3/uL (0-1.3); Monocytes % (auto) 9.7 % (0.0-12.0); Neutrophils # (auto) 4.8 10 ^3/uL (1.6-8.6); Neutrophils % (auto) 72.2 % (37.0-80.0); Nucleated Red Blood Cells % 0.1 %; Red Blood Cells 3.85 10^6/uL (4.0-5.20); Red Cell Distribution Width 16.5 % (11.8-14.3); White Blood Cell 6.7 10^3/uL (4.4-10.8)
[2022-09-26 09:16] LABS: INR 1.03 (0.9-1.15); Partial Thromboplastin Time 27.3 sec (24.6-33.4)
== END | disposition home or self-care (01) ==
LOC: LAB 08:28
PROVIDERS: ATTEND Internal Medicine
DX: C50.911 Malignant neoplasm of unspecified site of right female breast (principal)
CPT/HCPCS: 36415; 85025; 85610; 85730

== ENCOUNTER → 2022-09-27 | Outpatient (CLI) | payer OTHER ==
[~2022-09-27] MED LIST changes: +LIDOCAINE 2% (LOCAL ANESTH.) PF 5ml SDV ONE; +MIDAZOLAM HCL 2MG/2ML 2ml VIAL (1mg/ml) IV ONE; +MIDAZOLAM HCL 2MG/2ML 2ml VIAL (1mg/ml) ONE; +fentaNYL CITRATE 100 MCG/2 ML VL IV ONE; +fentaNYL CITRATE 100 MCG/2 ML VL ONE
== END | disposition home or self-care (01) ==
LOC: XYW 07:56
PROVIDERS: ATTEND Internal Medicine
DX: R91.8 Other nonspecific abnormal finding of lung field (principal); I12.0 Hypertensive chronic kidney disease with stage 5 chronic kidney disease or end stage renal disease; N18.6 End stage renal disease; E20.9 Hypoparathyroidism, unspecified; D64.9 Anemia, unspecified; Z88.1 Allergy status to other antibiotic agents; Z80.0 Family history of malignant neoplasm of digestive organs; Z79.890 Hormone replacement therapy; Z79.82 Long term (current) use of aspirin; Z80.3 Family history of malignant neoplasm of breast; Z82.49 Family history of ischemic heart disease and other diseases of the circulatory system; Z90.710 Acquired absence of both cervix and uterus; Z79.899 Other long term (current) drug therapy; Z98.890 Other specified postprocedural states
CPT/HCPCS: 32408; 71045; 71250; 88305; 88342; J2001; J2250; J3010; 10005; 77012

== ENCOUNTER 2022-11-03 10:18 | Emergency (ER) | payer OTHER ==
[~2022-11-03] VITALS: Ht 162.6 cm; Wt 62.7 kg
[~2022-11-03 10:18] MED LIST changes: -LIDOCAINE 2% (LOCAL ANESTH.) PF 5ml SDV ONE; -MIDAZOLAM HCL 2MG/2ML 2ml VIAL (1mg/ml) IV ONE; -MIDAZOLAM HCL 2MG/2ML 2ml VIAL (1mg/ml) ONE; -fentaNYL CITRATE 100 MCG/2 ML VL IV ONE; -fentaNYL CITRATE 100 MCG/2 ML VL ONE
[2022-11-03] MEDS ORDERED: ASPirin 325 MG TAB PO ONE (10:30)
[2022-11-03 10:50] LABS: Basophils # (auto) 0.1 10 ^3/uL (0-0.2); Basophils % (auto) 0.9 % (0.0-2.0); Eosinophils # (auto) 0.1 10 ^3/uL (0-0.8); Eosinophils % (auto) 2.2 % (0.0-7.0); Hematocrit 40.3 % (36.0-46.0); Hemoglobin 13.9 g/dL (12.2-16.2); Lymphocytes # (auto) 1.1 10 ^3/uL (0.4-5.4); Lymphocytes % (auto) 16.3 % (10.0-50.0); Mean Corpuscular Hemoglobin 32.9 pg (28.0-32.0); Mean Corpuscular Hgb Conc. 34.3 g/dL (32.0-36.0); Mean Corpuscular Volume 95.9 fL (80.0-100.0); Monocytes # (auto) 0.7 10 ^3/uL (0-1.3); Monocytes % (auto) 10.4 % (0.0-12.0); Neutrophils # (auto) 4.7 10 ^3/uL (1.6-8.6); Neutrophils % (auto) 70.2 % (37.0-80.0); Nucleated Red Blood Cells % 0.1 %; Red Blood Cells 4.21 10^6/uL (4.0-5.20); Red Cell Distribution Width 14.2 % (11.8-14.3); White Blood Cell 6.8 10^3/uL (4.4-10.8)
[2022-11-03 11:34] LABS: Albumin 3.5 g/dL (3.4-5.0); Bilirubin, Total 0.4 mg/dL (0.2-1.0); Calcium 8.3 mg/dL (8.5-10.1); Total Protein 7.3 g/dL (6.4-8.2)
[2022-11-03 12:56] LABS: Urine Bacteria NONE SEEN /hpf (None Seen); Urine Blood Negative /uL (Negative); Urine Specific Gravity 1.006 (1.001-1.035); Urine WBC 2 /hpf (0 - 5)
[2022-11-03 14:54] VITALS: BP 181/66
== END 2022-11-03 15:00 | disposition home or self-care (01) ==
LOC: ER 10:18
DX: E11.22 Type 2 diabetes mellitus with diabetic chronic kidney disease (principal); I12.0 Hypertensive chronic kidney disease with stage 5 chronic kidney disease or end stage renal disease; N18.6 End stage renal disease; E78.5 Hyperlipidemia, unspecified; Z99.2 Dependence on renal dialysis; Z90.710 Acquired absence of both cervix and uterus; Z90.89 Acquired absence of other organs; Z98.890 Other specified postprocedural states
CPT/HCPCS: 36415; 71045; 80053; 81001; 83880; 84484; 85025; 93005

== ENCOUNTER → 2022-11-29 | Outpatient (CLI) | payer OTHER ==
[2022-11-29 09:17] LABS: Basophils # (auto) 0.1 10 ^3/uL (0-0.2); Basophils % (auto) 0.9 % (0.0-2.0); Eosinophils # (auto) 0.1 10 ^3/uL (0-0.8); Eosinophils % (auto) 1.7 % (0.0-7.0); Hematocrit 37.6 % (36.0-46.0); Hemoglobin 12.8 g/dL (12.2-16.2); Lymphocytes # (auto) 0.9 10 ^3/uL (0.4-5.4); Lymphocytes % (auto) 14.6 % (10.0-50.0); Mean Corpuscular Hemoglobin 32.9 pg (28.0-32.0); Mean Corpuscular Volume 96.8 fL (80.0-100.0); Monocytes # (auto) 0.6 10 ^3/uL (0-1.3); Monocytes % (auto) 9.2 % (0.0-12.0); Neutrophils # (auto) 4.5 10 ^3/uL (1.6-8.6); Neutrophils % (auto) 73.6 % (37.0-80.0); Red Blood Cells 3.89 10^6/uL (4.0-5.20); Red Cell Distribution Width 14.1 % (11.8-14.3); White Blood Cell 6.2 10^3/uL (4.4-10.8)
[2022-11-29 09:41] LABS: Urine Bacteria FEW /hpf (None Seen); Urine Blood Negative /uL (Negative); Urine Specific Gravity 1.018 (1.001-1.035); Urine WBC 27 /hpf (0 - 5)
[2022-11-29 09:53] LABS: Potassium 3.8 mmol/L (3.5-5.1)
[2022-11-29 10:01] LABS: Albumin 3.8 g/dL (3.4-5.0); BUN/Creatinine Ratio 7.9 (10.0-20.0); Bilirubin, Total 0.4 mg/dL (0.2-1.0); Calcium 8.7 mg/dL (8.5-10.1); Phosphorus 1.6 mg/dL (2.5-4.90); Total Protein 7.8 g/dL (6.4-8.2); Uric Acid 1.7 mg/dL (2.6-6.0)
[2022-11-29 10:04] LABS: Free T4 (Free Thyroxine) 1.06 ng/dL (0.89-1.76)
== END | disposition home or self-care (01) ==
LOC: LAB 08:59
PROVIDERS: ATTEND Internal Medicine
DX: E11.22 Type 2 diabetes mellitus with diabetic chronic kidney disease (principal); N18.6 End stage renal disease; K21.9 Gastro-esophageal reflux disease without esophagitis
CPT/HCPCS: 36415; 80053; 80061; 81001; 82607; 83036; 83970; 84100; 84439; 84443; 84550; 85025; 85652

== ENCOUNTER → 2023-01-31 | Outpatient (CLI) | payer OTHER ==
[~2023-01-31] MED LIST changes: -AMLO-489 PO; +AMLO1TAB22 PO; -FERR-20 PO; +FERR325T24 PO; +FOLI-119 PO; -FOLI1TAB6 PO; +GABA-1250 PO; -GABA300C10 PO; -LEVO-28 PO; +LEVO500T91 PO; -OMEP-260 PO; +OMEP1CAP70 PO
[2023-01-31 09:41] LABS: Basophils # (auto) 0.1 10 ^3/uL (0-0.2); Basophils % (auto) 1.3 % (0.0-2.0); Eosinophils # (auto) 0.1 10 ^3/uL (0-0.8); Eosinophils % (auto) 1.9 % (0.0-7.0); Hematocrit 35.1 % (36.0-46.0); Lymphocytes % (auto) 15.5 % (10.0-50.0); Mean Corpuscular Hgb Conc. 34.2 g/dL (32.0-36.0); Mean Corpuscular Volume 99.2 fL (80.0-100.0); Monocytes # (auto) 0.6 10 ^3/uL (0-1.3); Monocytes % (auto) 9.3 % (0.0-12.0); Neutrophils # (auto) 4.7 10 ^3/uL (1.6-8.6); Red Blood Cells 3.54 10^6/uL (4.0-5.20); White Blood Cell 6.6 10^3/uL (4.4-10.8)
[2023-01-31 10:46] LABS: Albumin 3.7 g/dL (3.4-5.0); BUN/Creatinine Ratio 8.1 (10.0-20.0); Calcium 8.6 mg/dL (8.5-10.1); Potassium 4.4 mmol/L (3.5-5.1)
[2023-01-31 10:48] LABS: Bilirubin, Total 0.5 mg/dL (0.2-1.0); Total Protein 7.7 g/dL (6.4-8.2)
== END | disposition home or self-care (01) ==
LOC: LAB 09:13
PROVIDERS: ATTEND Internal Medicine
DX: C50.911 Malignant neoplasm of unspecified site of right female breast (principal); C78.00 Secondary malignant neoplasm of unspecified lung
CPT/HCPCS: 36415; 80053; 82306; 82728; 83540; 83615; 83735; 85025

== ENCOUNTER 2023-04-20 08:58 | Emergency (ER) | payer OTHER ==
[~2023-04-20] VITALS: Ht 165.1 cm; Wt 64.2 kg
[2023-04-20 09:06] VITALS: BP 183/74; RESP 16; O2SAT 93
[2023-04-20 09:09] VITALS: PULSE 69
[2023-04-20 10:04] LABS: Alanine Aminotransferase 12 U/L (7-40); Albumin 4.4 g/dL (3.2-4.8); Alkaline Phosphatase 89 U/L (46-116); Anion Gap 6 (5-15); Aspartate Aminotransferase 21 U/L (13-40); BUN/Creatinine Ratio 6.7 (10.0-20.0); Bilirubin, Total 0.5 mg/dL (0.2-1.0); Blood Urea Nitrogen 12 mg/dL (9-23); Calcium 8.8 mg/dL (8.5-10.1); Carbon Dioxide 33 mmol/L (20-30); Chloride 102 mmol/L (98-107); Glucose 131 mg/dL (74-106); Potassium 4.2 mmol/L (3.5-5.1); Sodium 141 mmol/L (136-145)
[2023-04-20 10:09] LABS: Basophils # (auto) 0.1 10 ^3/uL (0-0.2); Basophils % (auto) 0.6 % (0.0-2.0); Eosinophils # (auto) 0.5 10 ^3/uL (0-0.8); Eosinophils % (auto) 3.9 % (0.0-7.0); Hematocrit 32.3 % (36.0-46.0); Lymphocytes % (auto) 7.9 % (10.0-50.0); Mean Corpuscular Hemoglobin 33.3 pg (28.0-32.0); Monocytes # (auto) 0.9 10 ^3/uL (0-1.3); Monocytes % (auto) 7.4 % (0.0-12.0); Neutrophils # (auto) 9.6 10 ^3/uL (1.6-8.6); Neutrophils % (auto) 80.2 % (37.0-80.0); Red Blood Cells 3.29 10^6/uL (4.0-5.20); Red Cell Distribution Width 12.8 % (11.8-14.3)
[2023-04-20] MEDS ORDERED: IOHEXOL 350 MG/ML 100ML IJ ONE (10:30)
[2023-04-20 13:48] LABS: Urine Bacteria FEW /hpf (None Seen); Urine Blood Negative /uL (Negative); Urine Clarity Clear (Clear); Urine Color Straw (Yellow); Urine Protein, UAD 2+ (Negative); Urine Specific Gravity 1.015 (1.001-1.035); Urine Urobilinogen Normal (Negative); Urine WBC 2 /hpf (0 - 5); Urine pH 8.5 (5.0-8.0)
== END 2023-04-20 15:57 | disposition home or self-care (01) ==
LOC: ER 08:58
DX: I12.0 Hypertensive chronic kidney disease with stage 5 chronic kidney disease or end stage renal disease (principal); E11.22 Type 2 diabetes mellitus with diabetic chronic kidney disease; N18.6 End stage renal disease; Z99.2 Dependence on renal dialysis; Z90.89 Acquired absence of other organs; Z90.710 Acquired absence of both cervix and uterus
CPT/HCPCS: 36415; 70450; 71275; 80053; 81001; 84484; 85025; 85379; 93005; 99285; Q9967

== ENCOUNTER → 2023-05-15 | Outpatient (CLI) | payer OTHER ==
[2023-05-15 09:33] LABS: Base Excess 1.4 mmol/L (-2.0-2.0)
== END | disposition home or self-care (01) ==
LOC: RT 09:02
PROVIDERS: ATTEND Internal Medicine
DX: N18.6 End stage renal disease (principal); I50.20 Unspecified systolic (congestive) heart failure
CPT/HCPCS: 36600; 82805

== ENCOUNTER 2023-08-02 08:22 | Inpatient (IN) | payer OTHER ==
[~2023-08-02] VITALS: Ht 165.1 cm; Wt 68.3 kg
[2023-08-02 10:00] VITALS: PULSE 61; RESP 19; O2SAT 95
[2023-08-02 10:58] LABS: Basophils # (auto) 0.1 10 ^3/uL (0-0.2); Basophils % (auto) 0.7 % (0.0-2.0); Eosinophils # (auto) 0.1 10 ^3/uL (0-0.8); Hematocrit 34.7 % (36.0-46.0); Hemoglobin 11.3 g/dL (12.2-16.2); Lymphocytes # (auto) 0.6 10 ^3/uL (0.4-5.4); Lymphocytes % (auto) 6.9 % (10.0-50.0); Mean Corpuscular Hemoglobin 29.7 pg (28.0-32.0); Mean Corpuscular Hgb Conc. 32.6 g/dL (32.0-36.0); Monocytes # (auto) 0.6 10 ^3/uL (0-1.3); Monocytes % (auto) 6.9 % (0.0-12.0); Neutrophils # (auto) 6.9 10 ^3/uL (1.6-8.6); Neutrophils % (auto) 84.5 % (37.0-80.0); Red Blood Cells 3.81 10^6/uL (4.0-5.20); Red Cell Distribution Width 17.1 % (11.8-14.3); White Blood Cell 8.2 10^3/uL (4.4-10.8)
[2023-08-02 11:05] LABS: Chloride 103 mmol/L (98-107); Sodium 135 mmol/L (136-145)
[2023-08-02 11:06] LABS: Anion Gap 9 (5-15); Carbon Dioxide 23 mmol/L (20-30)
[2023-08-02 11:07] LABS: Calcium 8.9 mg/dL (8.5-10.1)
[2023-08-02 11:12] LABS: BUN/Creatinine Ratio 11.2 (10.0-20.0); Blood Urea Nitrogen 55 mg/dL (9-23); Glucose 148 mg/dL (74-106)
[2023-08-02 11:21] LABS: Potassium 5.9 mmol/L (3.5-5.1)
[2023-08-02] MEDS ORDERED: SODIUM BICARBONATE 8.4% INJ 50ML SYRINGE IV ONE (11:30)
[2023-08-02] MEDS ORDERED: SODIUM ZIRCONIUM CYCL 10 GM PAK PO ONE (11:30)
[2023-08-02] MEDS ORDERED: ALBUTEROL SULF 2.5 MG/0.5ML(0.5%) NEB SOLN NEB ONE (11:30)
[2023-08-02] MEDS ORDERED: CALCIUM GLUC 1,000mg/50ml-NS 50 ML IV ONE (11:30)
[2023-08-02] MEDS ORDERED: FUROSEMIDE 20 MG/2 ML VIAL IV ONE (11:30)
[2023-08-02] MEDS: InsuLIN REG 1unit/0.01ml Soln (100units/ml) IV ONE ×2 (11:46→11:55)
[2023-08-02] MEDS: DEXTROSE (50%) 50ML SYRG IV ONE ×2 (11:47→11:56)
[2023-08-02] MEDS ORDERED: MORPHINE SULFATE INJ 2 MG/ml SYRG IV PRN (12:15)
[2023-08-02] MEDS ORDERED: DOCUSATE SOD 100 MG CAP PO PRN (12:15)
[2023-08-02] MEDS ORDERED: cloNIDine HCL 0.1 MG TAB PO PRN (12:15)
[2023-08-02] MEDS ORDERED: ONDANSETRON HCL 4 MG/2 ML VIAL IV PRN (12:15)
[2023-08-02] MEDS ORDERED: FUROSEMIDE 40 MG TAB PO SCH (12:15)
[2023-08-02] MEDS ORDERED: DEXTROSE (50%) 50ML SYRG IV PRN (12:30)
[2023-08-02 12:44] LABS: INR 1.15 (0.9-1.15)
[2023-08-02 13:57] LABS: Urine Bacteria NONE SEEN /hpf (None Seen); Urine Blood Negative /uL (Negative); Urine Clarity Clear (Clear); Urine Color Yellow (Yellow); Urine Protein, UAD 2+ (Negative); Urine Specific Gravity 1.012 (1.001-1.035); Urine Urobilinogen Normal (Negative); Urine WBC <1 /hpf (0 - 5); Urine pH 7.5 (5.0-8.0)
[2023-08-02] MEDS: GABAPENTIN 300 MG CAP PO SCH ×2 (14:09→21:54)
[2023-08-02] MEDS: InsuLIN REG 1unit/0.01ml Soln (100units/ml) SC SCH ×2 (18:14→21:56)
[2023-08-02] MEDS: ACCU-CHEK COMFORT CURVE STRIP VI SCH ×2 (18:14→21:47)
[2023-08-02] MEDS: SEVELAMER 800 MG TAB PO SCH (18:36)
[2023-08-02] MEDS: FERROUS SULFATE 325mg EC TAB PO SCH (18:36)
[2023-08-02 19:30] VITALS: PULSE 66; RESP 17; O2SAT 95
[2023-08-02] MEDS: ATORVASTATIN 20 MG TAB PO SCH (21:54)
[2023-08-02] MEDS: CARVEDILOL 12.5 MG TAB PO SCH (21:55)
[2023-08-03] VITALS (13 sets, daily range): BP systolic 103–165; BP diastolic 54–68; PULSE 56–70; RESP 16–20; TEMP 97.8–98.8; O2SAT 92–99
[2023-08-03] MEDS: InsuLIN REG 1unit/0.01ml Soln (100units/ml) SC SCH ×4 (06:05→23:24)
[2023-08-03] MEDS: GABAPENTIN 300 MG CAP PO SCH ×3 (06:05→23:25)
[2023-08-03] MEDS: ACCU-CHEK COMFORT CURVE STRIP VI SCH ×4 (06:05→22:00)
[2023-08-03] MEDS: ASPirin-EC 81 mg tab PO SCH (06:05)
[2023-08-03 06:32] LABS: Basophils # (auto) 0.1 10 ^3/uL (0-0.2); Eosinophils # (auto) 0.1 10 ^3/uL (0-0.8); Eosinophils % (auto) 1.6 % (0.0-7.0); Hematocrit 30.5 % (36.0-46.0); Hemoglobin 9.9 g/dL (12.2-16.2); Lymphocytes # (auto) 0.6 10 ^3/uL (0.4-5.4); Lymphocytes % (auto) 10.6 % (10.0-50.0); Mean Corpuscular Hemoglobin 29.6 pg (28.0-32.0); Mean Corpuscular Hgb Conc. 32.6 g/dL (32.0-36.0); Mean Corpuscular Volume 90.6 fL (80.0-100.0); Monocytes # (auto) 0.5 10 ^3/uL (0-1.3); Monocytes % (auto) 9.1 % (0.0-12.0); Neutrophils # (auto) 4.6 10 ^3/uL (1.6-8.6); Neutrophils % (auto) 77.7 % (37.0-80.0); Nucleated Red Blood Cells % 0.1 %; Red Blood Cells 3.36 10^6/uL (4.0-5.20); Red Cell Distribution Width 17.1 % (11.8-14.3); White Blood Cell 5.9 10^3/uL (4.4-10.8)
[2023-08-03 06:42] LABS: Albumin 4.1 g/dL (3.2-4.8); Alkaline Phosphatase 87 U/L (46-116); Anion Gap 12 (5-15); Aspartate Aminotransferase 17 U/L (13-40); BUN/Creatinine Ratio 10.8 (10.0-20.0); Bilirubin, Total 0.3 mg/dL (0.2-1.0); Blood Urea Nitrogen 52 mg/dL (9-23); Calcium 8.7 mg/dL (8.5-10.1); Carbon Dioxide 23 mmol/L (20-30); Chloride 102 mmol/L (98-107); Glucose 122 mg/dL (74-106); Sodium 137 mmol/L (136-145); Total Protein 6.4 g/dL (5.7-8.2)
[2023-08-03 06:45] LABS: Alanine Aminotransferase 9 U/L (7-40)
[2023-08-03] MEDS ORDERED: SODIUM CHL 0.9% 1000 ML BAG XX ONE (07:00)
[2023-08-03] MEDS: FERROUS SULFATE 325mg EC TAB PO SCH ×2 (08:26→18:42)
[2023-08-03] MEDS: FOLIC ACID 1 MG TAB PO SCH (08:27)
[2023-08-03] MEDS: SEVELAMER 800 MG TAB PO SCH ×3 (08:27→18:42)
[2023-08-03] MEDS: CALCITRIOL 0.25 MCG CAP PO SCH (08:27)
[2023-08-03] MEDS: amLODIPine BESYLATE 5 MG TAB PO SCH (08:29)
[2023-08-03] MEDS: CARVEDILOL 12.5 MG TAB PO SCH ×2 (08:29→23:25)
[2023-08-03] MEDS ORDERED: OMEPRAZOLE 40MG/20ML ORAL SUSP PO SCH (10:00)
[2023-08-03] MEDS: cloNIDine HCL 0.1 MG TAB PO SCH ×2 (10:00→23:27)
[2023-08-03] MEDS ORDERED: MIDAZOLAM HCL 2MG/2ML 2ml VIAL (1mg/ml) ONE (14:19)
[2023-08-03] MEDS ORDERED: HEPARIN IN NS 1000Units/500mL 0 ML ONE (14:19)
[2023-08-03] MEDS ORDERED: LIDOCAINE 2%HCL (LOCAL ANESTH.) INJ 20ML MDV ONE (14:19)
[2023-08-03] MEDS ORDERED: fentaNYL CITRATE 100 MCG/2 ML VL ONE (14:19)
[2023-08-03] MEDS ORDERED: IODIXANOL 320MG/ML 100ML BTL IV ONE (14:19)
[2023-08-03] MEDS ORDERED: IOHEXOL 350 MG/ML 100ML IJ ONE (15:46)
[2023-08-03] MEDS ORDERED: HEPARIN SODIUM (PORCINE) 5000 UNITS/ML 1ML VIAL ONE (16:32)
[2023-08-03] MEDS: ATORVASTATIN 20 MG TAB PO SCH (23:27)
[2023-08-04 05:00] VITALS: BP 140/57; PULSE 59; RESP 16; TEMP 98.1; O2SAT 95
[2023-08-04 05:45] LABS: Basophils # (auto) 0.1 10 ^3/uL (0-0.2); Basophils % (auto) 1.1 % (0.0-2.0); Eosinophils # (auto) 0.2 10 ^3/uL (0-0.8); Hematocrit 33.3 % (36.0-46.0); Hemoglobin 10.6 g/dL (12.2-16.2); Lymphocytes # (auto) 0.7 10 ^3/uL (0.4-5.4); Lymphocytes % (auto) 10.9 % (10.0-50.0); Mean Corpuscular Hemoglobin 28.9 pg (28.0-32.0); Mean Corpuscular Hgb Conc. 31.8 g/dL (32.0-36.0); Mean Corpuscular Volume 90.8 fL (80.0-100.0); Monocytes # (auto) 0.6 10 ^3/uL (0-1.3); Monocytes % (auto) 9.8 % (0.0-12.0); Neutrophils # (auto) 4.5 10 ^3/uL (1.6-8.6); Neutrophils % (auto) 75.2 % (37.0-80.0); Red Blood Cells 3.66 10^6/uL (4.0-5.20); Red Cell Distribution Width 16.9 % (11.8-14.3)
[2023-08-04 05:55] LABS: Calcium 8.2 mg/dL (8.7-10.4); Chloride 103 mmol/L (98-107); Potassium 4.8 mmol/L (3.5-5.1); Sodium 136 mmol/L (136-145)
[2023-08-04 05:56] LABS: Anion Gap 12 (5-15); Carbon Dioxide 21 mmol/L (20-30)
[2023-08-04] MEDS: ACCU-CHEK COMFORT CURVE STRIP VI SCH ×2 (06:00→11:30)
[2023-08-04 06:01] LABS: Blood Urea Nitrogen 60 mg/dL (9-23); Glucose 82 mg/dL (74-106); Magnesium 1.9 mg/dL (1.6-2.6)
[2023-08-04] MEDS: GABAPENTIN 300 MG CAP PO SCH ×2 (06:21→14:12)
[2023-08-04] MEDS: ASPirin-EC 81 mg tab PO SCH (06:21)
[2023-08-04] MEDS: InsuLIN REG 1unit/0.01ml Soln (100units/ml) SC SCH ×2 (06:22→11:30)
[2023-08-04 08:00] VITALS: BP 117/41; PULSE 61; PULSE 63; PULSE 64; RESP 16; TEMP 98.4; O2SAT 93
[2023-08-04] MEDS: FERROUS SULFATE 325mg EC TAB PO SCH (08:00)
[2023-08-04] MEDS: SEVELAMER 800 MG TAB PO SCH ×2 (08:00→12:00)
[2023-08-04] MEDS: FOLIC ACID 1 MG TAB PO SCH (08:09)
[2023-08-04] MEDS: amLODIPine BESYLATE 5 MG TAB PO SCH ×2 (08:13→12:58)
[2023-08-04] MEDS: CARVEDILOL 12.5 MG TAB PO SCH ×2 (08:13→12:59)
[2023-08-04] MEDS: cloNIDine HCL 0.1 MG TAB PO SCH ×2 (08:13→13:00)
[2023-08-04] MEDS: CALCITRIOL 0.25 MCG CAP PO SCH (08:14)
[2023-08-04 09:00] VITALS: BP 117/41; PULSE 64; RESP 16; TEMP 98.4; O2SAT 93
[2023-08-04 13:00] VITALS: BP 183/74; PULSE 61; RESP 20; TEMP 97.3; O2SAT 98
[2023-08-04 14:46] VITALS: BP 183/74; PULSE 61; TEMP 97.3
== END 2023-08-04 15:45 | disposition home or self-care (01) | DRG 252 ==
LOC: ER 08:22 → TELE 12:13 → TELE-CENTR 23:36 → CENTRAL 08-03 10:04
PROVIDERS: ADMIT Internal Medicine Geriatric Medicine; ATTEND Internal Medicine Geriatric Medicine
PROC: 03783ZZ Dilation of Left Brachial Artery, Percutaneous Approach (ICD-10-PCS; 2023-08-03)
PROC: B31NYZZ Fluoroscopy of Other Upper Arteries using Other Contrast (ICD-10-PCS; 2023-08-03)
PROC: 5A1D70Z Performance of Urinary Filtration, Intermittent, Less than 6 Hours Per Day (ICD-10-PCS; principal; 2023-08-04)
DX: T82.858A Stenosis of other vascular prosthetic devices, implants and grafts, initial encounter (principal); I50.31 Acute diastolic (congestive) heart failure; N18.6 End stage renal disease; T82.856A Stenosis of peripheral vascular stent, initial encounter; D63.1 Anemia in chronic kidney disease; Y83.2 Surgical operation with anastomosis, bypass or graft as the cause of abnormal reaction of the patient, or of later complication, without mention of misadventure at the time of the procedure; E78.5 Hyperlipidemia, unspecified; E87.5 Hyperkalemia; E03.9 Hypothyroidism, unspecified; D64.9 Anemia, unspecified; Y83.8 Other surgical procedures as the cause of abnormal reaction of the patient, or of later complication, without mention of misadventure at the time of the procedure; I25.10 Atherosclerotic heart disease of native coronary artery without angina pectoris; E07.9 Disorder of thyroid, unspecified; Z99.2 Dependence on renal dialysis; Z80.3 Family history of malignant neoplasm of breast; Z80.0 Family history of malignant neoplasm of digestive organs; Z82.49 Family history of ischemic heart disease and other diseases of the circulatory system; Z82.5 Family history of asthma and other chronic lower respiratory diseases; Z88.1 Allergy status to other antibiotic agents; Z90.710 Acquired absence of both cervix and uterus; Z85.3 Personal history of malignant neoplasm of breast; Y92.89 Other specified places as the place of occurrence of the external cause
CPT/HCPCS: 36415; 71045; 76080; 76942; 80048; 80053; 81001; 82306; 82962; 83036; 83735; 83970; 84100; 84132; 84443; 85025; 85610; 87081; 87340; 90935; 94640; 96365; 96375; 97163; 99152; 99291; C1769; C1894; C2625; G0378; J1815; J2250; Q9967

== ENCOUNTER → 2023-08-08 | Outpatient (CLI) | payer OTHER | END | disposition home or self-care (01) | LOC: XYW 09:43 | PROVIDERS: ATTEND Radiology Diagnostic Radiology | DX: M79.622 Pain in left upper arm (principal) | CPT/HCPCS: 73060 ==

== ENCOUNTER → 2024-04-23 | Outpatient (CLI) | payer OTHER ==
[~2024-04-23] MED LIST changes: -CAR125T PO; +CARV-216 PO
[2024-04-23 10:27] LABS: Urine Bacteria None Seen /hpf (None Seen)
[2024-04-23 11:31] LABS: Basophils # (auto) 0.1 10 ^3/uL (0-0.2); Basophils % (auto) 0.9 % (0.0-2.0); Eosinophils # (auto) 0.1 10 ^3/uL (0-0.8); Eosinophils % (auto) 1.1 % (0.0-7.0); Hematocrit 40.2 % (36.0-46.0); Hemoglobin 13.1 g/dL (12.2-16.2); Lymphocytes # (auto) 0.6 10 ^3/uL (0.4-5.4); Mean Corpuscular Hemoglobin 28.4 pg (28.0-32.0); Mean Corpuscular Hgb Conc. 32.5 g/dL (32.0-36.0); Mean Corpuscular Volume 87.5 fL (80.0-100.0); Monocytes # (auto) 0.6 10 ^3/uL (0-1.3); Monocytes % (auto) 7.7 % (0.0-12.0); Neutrophils # (auto) 5.9 10 ^3/uL (1.6-8.6); Neutrophils % (auto) 82.3 % (37.0-80.0); Nucleated Red Blood Cells % 0.1 %; Platelet Count (auto) 263 10^3/uL (140-450); Red Cell Distribution Width 19.1 % (11.8-14.3); White Blood Cell 7.1 10^3/uL (4.4-10.8)
[2024-04-23 12:05] LABS: Erythrocyte Sedimentation Rate 42 mm/hr (0-20)
[2024-04-23 12:23] LABS: Albumin 4.5 g/dL (3.2-4.8); Alkaline Phosphatase 107 U/L (46-116); Anion Gap 9 (5-15); Aspartate Aminotransferase 17 U/L (13-40); BUN/Creatinine Ratio 5.7 (10.0-20.0); Blood Urea Nitrogen 15 mg/dL (9-23); Calcium 9.3 mg/dL (8.7-10.4); Carbon Dioxide 30 mmol/L (20-31); Chloride 100 mmol/L (98-107); Glucose 100 mg/dL (74-106); LDL Cholesterol 41 mg/dL (< 100); Potassium 4.3 mmol/L (3.5-5.1); Sodium 139 mmol/L (136-145); Triglycerides 107 mg/dL (< 150)
[2024-04-23 12:24] LABS: Bilirubin, Total 0.4 mg/dL (0.2-1.0); Cholesterol 107 mg/dL (< 200); HDL Cholesterol 47 mg/dL (40-59); Total Protein 7.5 g/dL (5.7-8.2)
[2024-04-23 12:25] LABS: Free T4 (Free Thyroxine) 1.09 ng/dL (0.89-1.76)
[2024-04-23 12:26] LABS: Alanine Aminotransferase < 9 U/L (7-40)
[2024-04-23 12:30] LABS: Urine Blood Negative /uL (Negative); Urine Clarity Clear (Clear); Urine Color Light-Yellow (Yellow); Urine Protein, UAD 2+ (Negative); Urine Specific Gravity 1.009 (1.001-1.035); Urine Urobilinogen Normal (Negative); Urine WBC <1 /hpf (0 - 5)
[2024-04-23 12:55] LABS: Uric Acid 1.8 mg/dL (3.1-7.8)
[2024-04-23 12:57] LABS: Creatinine, Urine 37.34 mg/dL (30.0-125.0)
== END | disposition home or self-care (01) ==
LOC: LAB 10:00
PROVIDERS: ATTEND Internal Medicine
DX: I12.0 Hypertensive chronic kidney disease with stage 5 chronic kidney disease or end stage renal disease (principal); N18.6 End stage renal disease; C64.9 Malignant neoplasm of unspecified kidney, except renal pelvis
CPT/HCPCS: 36415; 80053; 80061; 81001; 82043; 82570; 82607; 83970; 84439; 84443; 84550; 85025; 85652

== ENCOUNTER 2024-11-12 05:47 | Inpatient (IN) | payer OTHER ==
[~2024-11-12] VITALS: Ht 167.6 cm; Wt 54.6 kg
[2024-11-12 06:12] VITALS: PULSE 118; RESP 16; O2SAT 100
[2024-11-12] MEDS: ACETAMINOPHEN 325 MG TAB PO ONE (06:22)
--- NOTE | 2024-11-12 06:26 | ED.PDOC ---
Altered Mental Status HPI Comments 84 year old female brought in by daughter presents with a chief complaint of ALOC onset today (11/12/24). Daughter states patient woke up today for Dialysis, stated "I am not feeling right." At dialysis, noticed patient was altered, confused, experiencing shortness of breath, tremors, did not receive treatment, was sent to ED. Daughter states patient is DNR. PMHx stage 4 lung cancer, DM, ESRD, CKF, HTN, HLD. No other symptoms or modifying factors present at this time. Chief Complaint: ALOC Time Seen by MD: 06:08 Primary Care Provider: MASTER Reviewed Notes: Medications, Allergies Allergies: Coded Allergies: Azithromycin (Verified Allergy, Severe, BS DROPPED, PT COLD CLAMY, , 08/11/20) Home Meds Active Scripts Clonidine Hydrochloride (Clonidine Hcl) 0.1 Mg Tab, 0.1 MG PO Q4HP PRN, #60 TAB as needed for SBP >170 and/or DBP >90 Prov:GRICELDA HOLGUIN MD 11/25/21 Carvedilol (COREG) 12.5 Mg Tab, 12.5 MG PO Q12HR for 30 Days, #60 TAB Prov:GIRCELDA HOLGUIN MD 11/25/21 Ondansetron (Zofran) 4 Mg Tab, 1 TAB PO Q8HR, #20 TAB Prov:GRICELDA HOLGUIN MD 11/25/21 Levofloxacin Hemihydrate (LEVOFLOXACIN) 500 Mg Tab, 1 TAB PO EOD, #4 TAB Next dose start on 11/27/21 (q48h) total 4 doses Prov:GRICELDA HOLGUIN MD 11/25/21 Metronidazole (Flagyl) 500 Mg Tab, 500 MG PO Q8HR for 7 Days, #21 TAB Prov:GRICELDA HOLGUIN MD 11/25/21 Reported Medications Ferrous Sulfate (Ferrous Sulfate) 325 Mg Tab, 325 MG PO BIDWM for 30 Days, MG 11/19/21 Furosemide (Lasix) 40 Mg Tab, 40 MG PO PRN, TAB 11/19/21 Calcitriol (Calcitriol) 0.25 Mcg Cap, 0.25 MCG PO DAILY for 30 Days, MCG 11/19/21 Folic Acid (Folic Acid) 1 Mg Tab, 1 MG PO DAILY for 30 Days, MG 11/19/21 Amlodipine Besylate (Amlodipine Besylate) 5 Mg Tab, 10 MG PO DAILY for 30 Days, MG 11/19/21 Omeprazole (Omeprazole Dr) 20 Mg Cap, 20 MG PO DAILY, CAP 08/11/20 Hydralazine HCl (Hydralazine Hydrochloride) 100 Mg Tab, 100 MG PO TID 12/13/19 Sevelamer Carbonate (Renvela) 800 Mg Tab, 1 TAB PO TID for CHRONIC KIDNEY DISEASE 07/11/19 Aspirin (Aspir-Low) 81 Mg Tab, 81 MG PO QAM for CARDIAC HEALTH 07/11/19 Atorvastatin Calcium (ATORVASTATIN CALCIUM) 10 Mg Tab, 1 TAB PO QPM for HYPERLIPIDEMIA 07/11/19 Febuxostat (Uloric) 40 Mg Tab, 1 TAB PO QAM for GOUT 10/31/17 Letrozole (Femara) 2.5 Mg Tab, 1 TAB PO QAM for HORMONE REPLACEMENT 09/28/17 Gabapentin (Gabapentin) 300 Mg Cap, 300 MG PO TID for NEUROPATHY 11/02/15 Information Source: Relative Mode of Arrival: Ambulatory Severity: Moderate Timing: Hours Duration: Since onset Prehospital treatment: None Quality: Decreased Alertness, Change in Behavior, Confusion Recent: None History of: Diabetes Past Medical History PAST MEDICAL HISTORY: Cancer (stage 4), CKF, DM, ESRD, High Lipids, HTN, Thyroid Surgical History: Hysterectomy, Thyroidectomy, Tonsillectomy SEAT COVER CUTTER History: No Pertinent SEAT COVER CUTTER History Family History Family History: Reviewed,noncontributory to illness Social History Smoker: Non-Smoker Alcohol: Denies ETOH Use Drugs: Denies Drug Use Lives In: Home Constitutional: denies: chills, diaphoresis, fatigue, fever, malaise, sweats, weakness, others EENTM: denies: blurred vision, double vision, ear bleeding, ear discharge, ear drainage, ear pain, ear ringing, eye pain, eye redness, hearing loss, mouth pain, mouth swelling, nasal discharge, nose bleeding, nose congestion, nose pain, photophobia, tearing, throat pain, throat swelling, voice changes, others Respiratory: reports: shortness of breath; denies: cough, hemoptysis, orth opnea, SOB at rest, SOB with excertion, stridor, wheezing, others Cardiovascular: denies: chest pain, dizzy spells, diaphoresis, Dyspnea on exertion, edema, irregular heart beat, left arm pain, lightheadedness, palpitations, PND, syncope, others Gastrointestinal: denies: abdomen distended, abdominal pain, blood streaked bowels, constipated, diarrhea, dysphagia, difficulty swallowing, hematemesis, melena, nausea, poor appetite, poor fluid intake, rectal bleeding, rectal pain, vomiting, others Genitourinary: denies: abnormal vagina bleeding, burning, dyspareunia, dysuria, flank pain, frequency, hematuria, incontinence, pain, , vagina discharge, urgency, others Neurological: reports: tremors; denies: dizziness, fainting, headache, left sided numbness, left sided weakness, numbness, paresthesia, pre-existing deficit, right sided numbness, right sided weakness, seizure, speech problems, tingling, weakness, others Musculoskeletal: denies: back pain, gout, joint pain, joint swelling, muscle pain, muscle stiffness, neck pain, others Integumetry: denies: bruises, change in color, change in hair/nails, dryness, laceration, lesions, lumps, rash, wounds, others Allergic/Immunocompromised: denies: Difficulty Healing, Frequent Infections, Hives, Itching, others Hematologic/Lymphatic: denies: anemia, blood clots, easy bleeding, easy bruising, swollen glands, others Endocrine: denies: excessive hunger, excessive sweating, excessive thirst, excessive urination, flushing, intolerance to cold, intolerance to heat, unexplained weight gain, unexplained weight loss, others Psychiatric: reports: others (confusion, ALOC); denies: anxiety, bipolar disorder, depression, hopeless, panic disorder, schizophrenia, sleepless, suicidal All Other Systems: Reviewed and Negative Physical Exam General Appearance: Moderate Distress, Normal HEENT: Normal ENT Inspection, Pharynx Normal, TMs Normal Neck: Full Range of Motion, Non-Tender, Normal, Normal Inspection Respiratory: Chest Non-Tender, No Accessory Muscle Use, Other (Coarse breath sounds) Cardiovascular: No Edema, No JVD, No Murmur, No Gallop, Normal Peripheral Pulses, Tachycardia Breast Exam: Deferred Gastrointestinal: No Organomegaly, Non Tender, No Pulsatile Mass, Normal Bowel Sounds, Soft Genitalia: Deferred Pelvic: Deferred Rectal: Deferred Extremities: No calf tenderness, Normal capillary refill, Normal inspection, Normal range of motion, Non-tender, No pedal edema Musculoskeletal : Apperance: Normal Neurologic: Alert, computer tech II-XII nml as Tested, No Motor Deficits, Normal Affect, Normal Mood, No Sensory Deficits Cerebellar Function: NOT DONE Reflexes: NOT DONE Skin: Dry, Normal Color, Warm Lymphatic: No Adenopathy Was a procedure done? Was a procedure done?: No Differential Diagnosis (ALOC) Differential Diagnosis: Sepsis, Hypoxemia X-Ray, Labs, Meds, VS Vital Signs Date Time Temp Pulse Resp B/P (MAP) Pulse Ox O2 Delivery O2 Flow Rate FiO2 11/12/24 12:40 130 11/12/24 10:59 102 11/12/24 10:28 97 20 130/79 (96) 93 11/12/24 06:49 32 99 Room Air* 0 21 11/12/24 06:22 100.1 11/12/24 06:19 100.1 118 16 173/71 (105) 99 100.1 11/12/24 06:12 118 16 100 Non-Rebreather 15 N/A 11/12/24 06:04 99.1 108 20 152/83 (106) 77 99.1 Lab Test 11/12/24 06:45 Range/Units White Blood Count 10.0 4.4-10.8 10^3/uL Red Blood Count 4.16 4.0-5.20 10^6/uL Hemoglobin 12.0 L 12.2-16.2 g/dL Hematocrit 36.6 36.0-46.0 % Mean Corpuscular Volume 87.9 80.0-100.0 fL Mean Corpuscular Hemoglobin 28.8 28.0-32.0 pg Mean Corpuscular Hemoglobin Concent 32.8 32.0-36.0 g/dL Red Cell Distribution Width 17.8 H 11.8-14.3 % Platelet Count 345 140-450 10^3/uL Mean Platelet Volume 7.2 6.9-10.8 fL Neutrophils (%) (Auto) 84.7 H 37.0-80.0 % Lymphocytes (%) (Auto) 4.5 L 10.0-50.0 % Monocytes (%) (Auto) 9.8 0.0-12.0 % Eosinophils (%) (Auto) 0.4 0.0-7.0 % Basophils (%) (Auto) 0.6 0.0-2.0 % Neutrophils # (Auto) 8.5 1.6-8.6 10 ^3/uL Lymphocytes # (Auto) 0.5 0.4-5.4 10 ^3/uL Monocytes # (Auto) 1.0 0-1.3 10 ^3/uL Eosinophils # (Auto) 0 0-0.8 10 ^3/uL Basophils # (Auto) 0.1 0-0.2 10 ^3/uL Nucleated Red Blood Cells 0.0 % Sodium Level 141 136-145 mmol/L Potassium Level 4.0 3.5-5.1 mmol/L Chloride Level 99 98-107 mmol/L Carbon Dioxide Level 29 20-31 mmol/L Anion Gap 13 5-15 Blood Urea Nitrogen 34 H 9-23 mg/dL Creatinine 4.19 H 0.550-1.02 mg/dL Glomerular Filtration Rate Calc 10 >90 mL/min BUN/Creatinine Ratio 8.1 L 10.0-20.0 Serum Glucose 145 H 74-106 mg/dL Calcium Level 8.7 8.7-10.4 mg/dL Current Medications Medications (Trade) Dose Ordered Sig/Perri Route Start Time Stop Time Status Last Admin Acetaminophen (Tylenol Tablet) 650 mg ONCE ONCE PO 11/12/24 06:15 11/12/24 06:16 DC 11/12/24 06:22 Methylprednisolone Sodium Succinate (Solu Medrol) 125 mg ONCE ONCE IV 11/12/24 06:30 11/12/24 06:31 DC 11/12/24 06:33 Albuterol (Ventolin Medneb) 5 mg ONCE ONCE NEB 11/12/24 06:30 11/12/24 06:31 DC 11/12/24 06:48 Ipratropium [place] (Atrovent Medneb) 0.5 mg ONCE ONCE NEB 11/12/24 06:30 11/12/24 06:31 DC 11/12/24 06:49 Levofloxacin/ Dextrose 100 ml @ 100 mls/hr ONCE ONCE IV 11/12/24 06:30 11/12/24 07:29 DC 11/12/24 06:31 Lorazepam (Ativan Inj) 1 mg ONCE ONCE IV 11/12/24 06:30 11/12/24 06:31 DC 11/12/24 06:30 Patient alert. She does have fever. Possibly from lungs. Vitals stable. She does have lung cancer. She is DNR. Establish intravenous access. Was given steroid. Was given breathing treatment. Was given Levaquin. Was given Ativan for her shaking. Reviewed her previous visit. Explained to the family. Continue monitoring. [address] [address] Ph: [phone] DIAGNOSTIC IMAGING Diagnostic Imaging Report : [id number] Signed PATIENT: CALVIN MESSINA ACCT: [id number] UNIT: [id number] : 1940 LOC: ER ROOM / BED: / AGE / SEX: 84 / F ADM STATUS: REG ER SERVICE 7 ORDERING PHYSICIAN: ISAAC MATHIAS MD PROCEDURE(s): CXRP - CHEST PORTABLE REASON: sob ORDER NUMBER(s): [id number], ACCESSION NUMBER(s): [id number] CLINICAL INFORMATION: Shortness of breath. TECHNIQUE: Single AP portable chest radiograph was obtained. COMPARISON: XY CHEST XRAY 1 VIEW on DOS: 08/03/23, XY CHEST PORTABLE on DOS: 11/03/22, XY CHEST PORTABLE on DOS: 09/27/22 FINDINGS: Lungs: Multiple pulmonary masses, increased in size compared to the prior exam. Superimposed consolidation in the right mid and lower lung. Suspected at least small right pleural effusion. Atelectasis and/or consolidation in the left lower lung. No pneumothorax. Moderate elevation of the right hemidiaphragm. Cardiac: Moderate to marked cardiomegaly. Pulmonary vasculature: Unremarkable. Mediastinum/nely: Unremarkable. Bones: No acute osseous abnormality identified. Other: No other significant findings. IMPRESSION: 1. Multiple pulmonary masses, increased in size compared to the prior radiographs. 2. Superimposed consolidation in the right lung and atelectasis and/or consolidation in the left lower lung. Suspected small right pleural effusion. 3. Moderate to marked cardiomegaly. ATED BY: EDDIE TAYLOR DO DICTATED DATE/TIME: 11/12/24706 SIGNED BY: EDDIE TAYLOR DO SIGNED DATE/TIME: 11/12/24706 CC: Time of 1ST Reevaluation: 06:38 Reevaluation 1ST: Unchanged Patient Education/Counseling: Other Family Education/Counseling: Diagnosis, Treatment, Prognosis Additional Information The following tests were ordered, and results were reviewed by me: CBC, BMP, XY CHEST, UA Additional Information was gathered from interviewing the following independent historians: daughter I reviewed and agreed with the following test results read by other providers: XY CHEST I discussed treatment and results with medical personnel and: Patient Comprehensive systems review obtained and negative except for what is stated in the HPI. Departure 1 Departure Time of Disposition: 06:37 Impression: Primary Impression: Pneumonitis Additional Impression: Chronic kidney disease on chronic dialysis Disposition: ADMITTED INPATIENT Admit to: Med Surg Condition: Guarded Critical Care Note Critical Care Time?: Yes (90 min-critical care time only) Critical care comment: Placed on oxygen Stability Stability form required: No Heart Score Heart Score: Heart Score Response (Comments) Value History N/A 0 EKG N/A 0 Age N/A 0 Risk Factors N/A 0 Troponin N/A 0 Total 0 I personally scribed for ISAAC MATHIAS MD ([email or web address]) on 11/12/24 at 06:26. Electronically submitted by Arabella Rodriguez ([email or web address]). I personally scribed for ISAAC MATHIAS MD ([email or web address]) on 11/12/24 at 07:33. Electronically submitted by Arabella Rodriguez ([email or web address]). ISAAC MATHIAS MD Nov 12, 2024 06:26
[2024-11-12] MEDS: LORazepam 2MG/ML-1ML VIAL IV ONE ×2 (06:30→15:06)
[2024-11-12] MEDS: levoFLOXacin 500MG 100 ML IV ONE ×2 (06:31→19:03)
[2024-11-12] MEDS: methylPREDNISolone SOD SUCC 125 MG/2 ML VL IV ONE (06:33)
[2024-11-12] MEDS: ALBUTEROL SULF 2.5 MG/0.5ML(0.5%) NEB SOLN NEB ONE (06:48)
[2024-11-12] MEDS: IPRATROPIUM BROM 0.5 MG/2.5ML INH SOL NEB ONE (06:49)
--- NOTE | 2024-11-12 07:09 | DVH ---
CLINICAL INFORMATION: Shortness of breath. TECHNIQUE: Single AP portable chest radiograph was obtained. COMPARISON: XY CHEST XRAY 1 VIEW on DOS: 08/03/23, XY CHEST PORTABLE on DOS: 11/03/22, XY CHEST PORTABL E on DOS: 09/27/22 FINDINGS: Lungs: Multiple pulmonary masses, increased in size compared to the prior exam. Superimposed consolid ation in the right mid and lower lung. Suspected at least small right pleural effusion. Atelectasis a nd/or consolidation in the left lower lung. No pneumothorax. Moderate elevation of the right hemidiap hragm. Cardiac: Moderate to marked cardiomegaly. Pulmonary vasculature: Unremarkable. Mediastinum/nely: Unremarkable. Bones: No acute osseous abnormality identified. Other: No other significant findings. IMPRESSION: 1. Multiple pulmonary masses, increased in size compared to the prior radiographs. 2. Superimposed consolidation in the right lung and atelectasis and/or consolidation in the left lowe r lung. Suspected small right pleural effusion. 3. Moderate to marked cardiomegaly.
[2024-11-12 07:15] LABS: Basophils # (auto) 0.1 10 ^3/uL (0-0.2); Basophils % (auto) 0.6 % (0.0-2.0); Eosinophils # (auto) 0 10 ^3/uL (0-0.8); Eosinophils % (auto) 0.4 % (0.0-7.0); Hematocrit 36.6 % (36.0-46.0); Lymphocytes # (auto) 0.5 10 ^3/uL (0.4-5.4); Lymphocytes % (auto) 4.5 % (10.0-50.0); Mean Corpuscular Hemoglobin 28.8 pg (28.0-32.0); Mean Corpuscular Hgb Conc. 32.8 g/dL (32.0-36.0); Mean Corpuscular Volume 87.9 fL (80.0-100.0); Monocytes % (auto) 9.8 % (0.0-12.0); Neutrophils # (auto) 8.5 10 ^3/uL (1.6-8.6); Neutrophils % (auto) 84.7 % (37.0-80.0); Platelet Count (auto) 345 10^3/uL (140-450); Red Blood Cells 4.16 10^6/uL (4.0-5.20); Red Cell Distribution Width 17.8 % (11.8-14.3)
[2024-11-12 07:27] LABS: Chloride 99 mmol/L (98-107); Sodium 141 mmol/L (136-145)
[2024-11-12 07:28] LABS: Anion Gap 13 (5-15); Carbon Dioxide 29 mmol/L (20-31)
[2024-11-12 07:33] LABS: BUN/Creatinine Ratio 8.1 (10.0-20.0)
[2024-11-12 07:34] LABS: Blood Urea Nitrogen 34 mg/dL (9-23); Calcium 8.7 mg/dL (8.7-10.4); Glucose 145 mg/dL (74-106)
[2024-11-12] MEDS: levoFLOXacin 500MG 100 ML IV SCH (13:00)
--- NOTE | 2024-11-12 13:36 | DVHHP2 ---
History of Present Illness History of Present Illness 84-year-old female with a complex medical history including stage IV lung cancer, end-stage renal disease (ESRD) on hemodialysis (//Mon), diabetes mellitus, hypertension, hyperlipidemia, and prior hysterectomy, thyroidectomy, and tonsillectomy, who presents with altered mental status, wo rsening tremors, and shortness of breath.The patient was brought in by her daughter after waking up feeling unwell, weak, and confused. The daughter noted increased tremors, generalized weakness, and observed hypoxia with oxygen saturations reportedly in the 80s on room air, despite the patient not being oxygen-dependent at baseline. The patient missed her scheduled dialysis session today due to not feeling well. She also complained of bilateral flank pain but denied chest pain or acute shortness of breath on presentation. On exam, the patient was found to be in atrial fibrillation with rapid ventricular response (RVR), with heart rates in the 140s. The daughter was unaware of any prior history of arrhythmia. The patient continues to make some urine output despite being on dialysis. The daughter also requested social work involvement for discharge planning, noting concerns about future care but expressing that the family is not yet ready to pursue hospice services. in Laboratory evaluation showed stable hemoglobin at 10.4, hematocrit 34%, normal potassium, normal creatinine for ESRD, and glucose of 145. Chest X-ray revealed known lung cancer with consolidation, cardiomegaly, and a small right pleural effusion. A CT scan has been ordered for further evaluation. Cardiology Dr. Pruitt has been consulted for new-onset atrial fibrillation, and a formal echocardiogram has been requested. pt will be admitted also will consult renal consult Past Medical History see HPI above Past Surgical History see hpi above Family History Reviewed, non-contributory to the management of this case. Past Social History The patient lives at home, denies smoking, alcohol or illicit drugs abuse. Review of Systems Constitutional: Yes: Weakness; No: Fever, Chills, Sweats, Malaise, Other Eyes: No: Pain, Vision change, Conjunctivae inflammation, Eyelid inflammation, Other, Redness ENT: No: Ear pain, Ear discharge, Nose pain, Nose discharge, Nose congestion, Mouth pain, Mouth swelling, Throat pain, Throat swelling, Other Respiratory: No: Cough, Dry, Shortness of breath, SOB with excertion, Wheezing, Hemoptysis, Pleuritic Pain, Sputum, Wheezing, Other Cardiovascular: No: Chest Pain, Palpitations, Orthopnea, Paroxysmal Noc. Dyspnea, Edema, Lt Headedness, Other Gastrointestinal: No: Nausea, Vomiting, Abdominal Pain, Diarrhea, Constipation, Melena, Hematochezia, Other Genitourinary: No Dysuria, No Frequency, No Incontinence, No Hematuria, No Retention, No Other Musculoskeletal: No: other, neck pain, shoulder pain, arm pain, back pain, hand pain, leg pain, foot pain Skin: No: Rash, Lesions, Jaundice, Bruising, Other Neurological: Weakness; No: Numbness, Incoordination, Change in speech, Confusion, Seizures, Other Allergies: Coded Allergies: Azithromycin (Verified Allergy, Severe, BS DROPPED, PT COLD CLAMY, , 08/11/20) Exam Vital Signs Vital Signs Date Time Temp Pulse Resp B/P (MAP) Pulse Ox O2 Delivery O2 Flow Rate FiO2 11/12/24 12:40 130 11/12/24 10:28 20 130/79 (96) 93 11/12/24 06:49 Room Air* 0 21 11/12/24 06:22 100.1 General Appearance: Alert, Oriented X3, Cooperative, No acute distress, Other (body jerking ) HEENT: Atraumatic, PERRLA, EOMI, Mucous membr. moist/pink Respiratory: Clear to auscultation, Normal air movement Cardiovascular: Normal S1, Normal S2, No murmurs, Other (irregular irregular ) Abdominal: Normal bowel sounds, Soft, No tenderness, No hepatospenomegaly, No masses Extremities: No clubbing, No cyanosis, No edema, Normal pulses, No tenderness/swelling Skin: No rashes, No breakdown, No significant lesion Neuro: Normal speech, Other (constant body jerking ) Psych/Mental Status: Mental status NL, Mood NL Labs/Xrays Pulmonary consolidation seen and right lung atelectasis and right pleural effusion I reviewed labs, imaging CT scan abdomen pelvis, EKG and all diagnostic studies on this patient from ED records and the medical chart Labs Test 11/12/24 06:45 Range/Units White Blood Count 10.0 4.4-10.8 10^3/uL Red Blood Count 4.16 4.0-5.20 10^6/uL Hemoglobin 12.0 L 12.2-16.2 g/dL Hematocrit 36.6 36.0-46.0 % Mean Corpuscular Volume 87.9 80.0-100.0 fL Mean Corpuscular Hemoglobin 28.8 28.0-32.0 pg Mean Corpuscular Hemoglobin Concent 32.8 32.0-36.0 g/dL Red Cell Distribution Width 17.8 H 11.8-14.3 % Platelet Count 345 140-450 10^3/uL Mean Platelet Volume 7.2 6.9-10.8 fL Neutrophils (%) (Auto) 84.7 H 37.0-80.0 % Lymphocytes (%) (Auto) 4.5 L 10.0-50.0 % Monocytes (%) (Auto) 9.8 0.0-12.0 % Eosinophils (%) (Auto) 0.4 0.0-7.0 % Basophils (%) (Auto) 0.6 0.0-2.0 % Neutrophils # (Auto) 8.5 1.6-8.6 10 ^3/uL Lymphocytes # (Auto) 0.5 0.4-5.4 10 ^3/uL Monocytes # (Auto) 1.0 0-1.3 10 ^3/uL Eosinophils # (Auto) 0 0-0.8 10 ^3/uL Basophils # (Auto) 0.1 0-0.2 10 ^3/uL Nucleated Red Blood Cells 0.0 % Sodium Level 141 136-145 mmol/L Potassium Level 4.0 3.5-5.1 mmol/L Chloride Level 99 98-107 mmol/L Carbon Dioxide Level 29 20-31 mmol/L Anion Gap 13 5-15 Blood Urea Nitrogen 34 H 9-23 mg/dL Creatinine 4.19 H 0.550-1.02 mg/dL Glomerular Filtration Rate Calc 10 >90 mL/min BUN/Creatinine Ratio 8.1 L 10.0-20.0 Serum Glucose 145 H 74-106 mg/dL Calcium Level 8.7 8.7-10.4 mg/dL Assessment/Plan Assessment/Plan 84-year-old female with ESRD, stage IV lung cancer, and new-onset atrial fibrillation, presenting with altered mental status, worsening tremors, and missed dialysis. acute Atrial Fibrillation with RVR new onset found on ekg Plan: Cardiology consult placed fu results ordered diltiazem iv x1 Order echocardiogram Consider lovenox for now acute Hypoxia resp failure likely multifactorial and pna Plan O2 via nasal cannula as needed Monitor ABG if worsening Address underlying causes (volume overload, cancer-related lung disease) ordered levaquin Altered Mental Status multifactorial: missed dialysis, hypoxia, possible infection Plan: Monitor neuro status Correct uremia with dialysis Supplemental O2 to maintain sats >92% ordered abg fu results ESRD on Hemodialysis missed session today tues, thurs, sat Plan: Arrange emergent dialysis session by Dr. Kilpatrick Monitor volume status, electrolytes Daily weights and strict I/O Hold nephrotoxic medications acute bacterial community acquired pna found on cxr ordered levaquin for now chronic Tremors worsening Plan: Monitor; likely baseline neurological issue exacerbated by metabolic derangements Neuro consult if persistent after dialysis acute Bilateral Flank Pain possible volume overload or uremia-related Plan: Address with dialysis UA if since for infection, pt still make urine, fu results Monitor pain control Social Situation advanced illness, caregiver strain Plan: Social work consult for discharge planning Discuss long-term care needs Family meeting to address goals of care chronic problems stage iv lung cancer dm ISS esrd ckf htn hld FEN/ppx IVF: Avoid unless hypotensive (ESRD) Arrange dialysis consulted Dr. Kilpatrick group Renal diet VTE: lovenox prophylaxis if not anticoagulated and no contraindication GI: Pantoprazole 40 mg IV daily DISPOSITION Admit to [facility] since with acute afib, management of new-onset atrial fibrillation with RVR, missed dialysis, and evaluation of hypoxia and altered mental status. Cardiology and social work consulted. Await CT imaging and echocardiogram. daughter is naheed sears [phone] pt is dnr discussed with daughter Plan discussed with: Patient, Daughter Date of Service: Nov 12, 2024 Billing Provider: SHADY GARRETT DNP Common Visit Codes: 98005-[id number] INP/OBS CARE (HIGH), [id number] CARE 30- 74 MIN (Total critical care time: Approximately 45 minutes This critical care time included obtaining a history; examining the patient; pulse oximetry; ordering and review of studies; arranging urgent treatment with development of a management plan; evaluation of patient's response to treatment; frequent reassessment; and, discussions with other providers.) SHADY GARRETT DNP Nov 12, 2024 13:36
[2024-11-12] MEDS ORDERED: cloNIDine HCL 0.1 MG TAB PO PRN (14:45)
[2024-11-12] MEDS ORDERED: DOCUSATE SOD 100 MG CAP PO PRN (14:45)
[2024-11-12] MEDS ORDERED: NITROGLYCERIN 0.4 MG SL TAB SL PRN (14:45)
[2024-11-12] MEDS ORDERED: ENOXAPARIN SOD 30 MG/0.3 ML SYRINGE SC SCH (14:45)
[2024-11-12 15:23] LABS: Magnesium 1.6 mg/dL (1.6-2.6)
[2024-11-12 15:25] LABS: Phosphorus 5.6 mg/dL (2.4-5.1)
--- NOTE | 2024-11-12 15:40 | DVH ---
Exam: CT CT AB PEL WO CON-NO ORAL OR IV History: acute abd pain Comparison Study: 05/20/2024 report all TECHNIQUE: Multidetector CT of the abdomen and pelvis without IV contrast. Axial, coronal and sagitta l multiplanar reformats were obtained from the axial data set by the technologist. Radiation Dose Information: CT Dose: CTDI volume is 5.82 mGy. Dose-length product is 329.27 mGy*cm FINDINGS: Trace bilateral pleural effusion. Multiple nodular opacities of the lung bases largest measuring up to 6.5 x 5.9 cm. Moderate cardiomegaly. Trace pericardial effusion. Heavy atherosclerotic calcificat ion of the coronary arteries. Calcified granuloma within the spleen. Mild hepatomegaly. Otherwise, liver, spleen, pancreas and adr enal glands unremarkable. Sludge within the mildly distended gallbladder. The right kidney is surgically absent. 2.4 x 2.3 cm left renal upper pole lesion which does not measu re as simple fluid. The left ureter and urinary bladder unremarkable. Status post hysterectomy. Mild gastric wall thickening. Small bowel loops unremarkable. Appendix is not definitely visualized. Transverse colon, descending colon and Sigmoid diverticulosis with short segmental wall thickening of the sigmoid limited evaluation for diverticulitis given Trace ascites. No evidence of intraperitoneal free air. No evidence of aortic aneurysm. [id number] atherosclerotic calcification of the aorta and bila teral iliacs. No significant lymphadenopathy. Mild body wall edema. Tiny fat containing umbilical hernia. Sclerotic focus over the right S3. Mild dextroconvex curvature of the lumbar spine. Multilevel [id number] degenerative changes of the thoracic and lumbar spine. IMPRESSION: Mid noncontrast imaging. Multiple right lung base masses concerning for metastasis. Trace bilateral pleural effusions. 2.4 x 2.3 cm left renal upper pole lesion which does not measure as simple fluid. Recommend renal pr otocol CT for further evaluation of possible mass. Status post right nephrectomy. Proximal Gastric wall thickening which may be due to inadequate distention with gastritis/neoplasm no t excluded. Colonic diverticulosis with segmental wall thickening of the sigmoid and Limited evaluation for adjac ent inflammatory reaction given Trace ascites. Trace ascites.
[2024-11-12] MEDS: dilTIAZem 25 MG/5 ML VIAL IV ONE (15:56)
[2024-11-12] MEDS ORDERED: ACETAMINOPHEN 325 MG TAB PO PRN (16:00)
[2024-11-12] MEDS: DIGOXIN (250MCG/ML) 2 ML AMPULE IV ONE (16:00)
[2024-11-12] MEDS ORDERED: hydrALAZINE HCL 20 MG/ML VL IV PRN (16:00)
--- NOTE | 2024-11-12 16:27 | DVHINCON2 ---
Date Seen: Nov 12, 2024 Referring Physician HARSHA Hercules Reason for Consultation New onset atrial fibrillation History of Present Illness This is an 84-year-old female who presented to the emergency room via EMS with a chief complaint of generalized weakness. At time of assessment the patient was found A&O x3 with O2 via Oxymizer at 8 LPM. Denies any active cardiac symptoms including chest pain, palpitations, diaphoresis, SOB, or syncopal events. Complains of bilateral flank pain. Per records, the patient was also found somewhat confused prior to arrival. She underwent a 12 lead electrocardiogram revealing an atrial fibrillation rhythm with rapid ventricular rate and an associated QTc at 512 ms. She underwent a cardiac catheterization without catheter based intervention given mild coronary artery disease with Dr. Mckay on 2021. Significant medical history includes prediabetes, hypertension, dyslipidemia, GERD, end-stage renal disease on hemodialysis T-Th-Mon, unspecified stage IV lung cancer, right breast ductal carcinoma in-situ status p ost right breast lumpectomy, left lower parathyroid adenoma excision, and right renal mass status post robotic right radical nephrectomy. Past Medical History Past medical history reviewed. No other significant than mentioned above. Past Surgical History Left upper arm AV shunt, 2019 Right breast lumpectomy, 2016 Robotic right radical nephrectomy, 2018 Left lower parathyroid adenoma excision, 2016 Hysterectomy Thyroidectomy Tonsillectomy Family History: Cardiovascular disease FATHER Chronic obstructive pulmonary disease MOTHER FH: breast cancer MOTHER FH: heart attack G8 FATHER FH: heart disease G8 FATHER FATHER ( FROM HEART DISEASE.) FH: hypertension MOTHER FATHER FH: stomach cancer MOTHER Hypertension G8 MOTHER G8 FATHER FATHER Ischemic heart disease G8 FATHER FATHER Family History Family history reviewed. Social History Denies the use of illicit drugs, alcohol, or tobacco use. Allergies: Coded Allergies: Azithromycin (Verified Allergy, Severe, BS DROPPED, PT COLD CLAMY, , 08/11/20) Home Meds Active Scripts Clonidine Hydrochloride (Clonidine Hcl) 0.1 Mg Tab, 0.1 MG PO Q4HP PRN, #60 TAB as needed for SBP >170 and/or DBP >90 Prov:GRICELDA HOLGUIN MD 11/25/21 Carvedilol (COREG) 12.5 Mg Tab, 12.5 MG PO Q12HR for 30 Days, #60 TAB Prov:GRICELDA HOLGUIN MD 11/25/21 Ondansetron (Zofran) 4 Mg Tab, 1 TAB PO Q8HR, #20 TAB Prov:GRICELDA HOLGUIN MD 11/25/21 Levofloxacin Hemihydrate (LEVOFLOXACIN) 500 Mg Tab, 1 TAB PO EOD, #4 TAB Next dose start on 11/27/21 (q48h) total 4 doses Prov:GRICELDA HOLGUIN MD 11/25/21 Metronidazole (Flagyl) 500 Mg Tab, 500 MG PO Q8HR for 7 Days, #21 TAB Prov:GRICELDA HOLGUIN MD 11/25/21 Reported Medications Ferrous Sulfate (Ferrous Sulfate) 325 Mg Tab, 325 MG PO BIDWM for 30 Days, MG 11/19/21 Furosemide (Lasix) 40 Mg Tab, 40 MG PO PRN, TAB 11/19/21 Calcitriol (Calcitriol) 0.25 Mcg Cap, 0.25 MCG PO DAILY for 30 Days, MCG 11/19/21 Folic Acid (Folic Acid) 1 Mg Tab, 1 MG PO DAILY for 30 Days, MG 11/19/21 Amlodipine Besylate (Amlodipine Besylate) 5 Mg Tab, 10 MG PO DAILY for 30 Days, MG 11/19/21 Omeprazole (Omeprazole Dr) 20 Mg Cap, 20 MG PO DAILY, CAP 08/11/20 Hydralazine HCl (Hydralazine Hydrochloride) 100 Mg Tab, 100 MG PO TID 12/13/19 Sevelamer Carbonate (Renvela) 800 Mg Tab, 1 TAB PO TID for CHRONIC KIDNEY DISEASE 07/11/19 Aspirin (Aspir-Low) 81 Mg Tab, 81 MG PO QAM for CARDIAC HEALTH 07/11/19 Atorvastatin Calcium (ATORVASTATIN CALCIUM) 10 Mg Tab, 1 TAB PO QPM for HYPERLIPIDEMIA 07/11/19 Febuxostat (Uloric) 40 Mg Tab, 1 TAB PO QAM for GOUT 10/31/17 Letrozole (Femara) 2.5 Mg Tab, 1 TAB PO QAM for HORMONE REPLACEMENT 09/28/17 Gabapentin (Gabapentin) 300 Mg Cap, 300 MG PO TID for NEUROPATHY 11/02/15 Home Meds Home medications reviewed. Current Medications Current Medications Medications (Trade) Dose Ordered Sig/Perri Route PRN Reason Start Time Stop Time Status Last Admin Amlodipine Besylate (Norvasc Tablet) 10 mg DAILY PO 11/13/24 10:00 UNV Aspirin (Ecotrin Enteric Coated Tablet) 81 mg QAM PO 11/13/24 07:00 UNV Calcitriol (Rocaltrol Capsule) 0.25 mcg DAILY PO 11/13/24 10:00 UNV Carvedilol (Coreg Tablet) 12.5 mg Q12HR PO 11/12/24 22:00 UNV Clonidine HCl (Catapres Tablet) 0.1 mg Q4HP PRN PO SBP>160 11/12/24 14:45 UNV Gabapentin (Neurontin Capsule) 300 mg TID PO 11/12/24 22:00 UNV Patient Own Medication 1 tab QPM PO 11/12/24 18:00 UNV Patient Own Medication 1 tab QAM PO 11/13/24 07:00 UNV Patient Own Medication 325 mg BIDWM PO 11/12/24 18:00 UNV Patient Own Medication 1 mg DAILY PO 11/13/24 10:00 UNV Patient Own Medication 100 mg TID PO 11/12/24 22:00 UNV Patient Own Medication 1 tab QAM PO 11/13/24 07:00 UNV Patient Own Medication 20 mg DAILY PO 11/13/24 10:00 UNV Patient Own Medication 1 tab TID PO 11/12/24 22:00 UNV Levofloxacin/ Dextrose 100 ml @ 100 mls/hr Q48H IV 11/12/24 13:00 Ondansetron HCl (Zofran) 4 mg Q4HP PRN IV NAUSEA / VOMITING 11/12/24 14:45 Docusate Sodium (Colace Capsule) 100 mg BIDPRN PRN PO FOR CONSTIPATION 11/12/24 14:45 Morphine Sulfate 2 mg Q4HPRN PRN IV SEVERE PAIN (7-10 PAIN SCALE) 11/12/24 14:45 Enoxaparin Sodium (Lovenox) 30 mg DAILY SC 11/12/24 14:45 Nitroglycerin (Ntrostat Sublingual) 0.4 mg Q5MINP PRN SL FOR CHEST PAIN 11/12/24 14:45 Review of Systems Constitutional: No symptom reported Ears, Nose, & Throat: No symptom reported Eyes: No symptom reported Neurological: ALOC Pulmonary/Respiratory: No symptom reported Cardiovascular: No symptom reported Gastrointestinal: Bilateral flank pain Genitourinary: No symptom reported Musculoskeletal: No symptom reported Skin: No symptom reported Psychiatric: No symptom reported Endocrine: No symptom reported Hemotologic/Lymphatic: No symptom reported Vital Signs Vital Signs Date Time Temp Pulse Resp B/P (MAP) Pulse Ox O2 Delivery O2 Flow Rate FiO2 11/12/24 12:40 130 11/12/24 10:28 20 130/79 (96) 93 11/12/24 06:49 Room Air* 0 21 11/12/24 06:22 100.1 Physical Exam General Appearance: Cooperative. Cachectic. In no acute distress Head Exam: Normal inspection Neck Exam: Normal inspection. Non-tender. Normal alignment Pulmonary/Respiratory: Chest non-tender. Diminished bilateral breath sounds. O2 via Oxymizer at 8 LPM Cardiovascular/Chest: Irregularly irregular rate and rhythm. AFib with RVR. No murmurs. No JVD. Peripheral Pulses: 2+ Radial (R). 2+ Radial (L). 2+ Pedal (R). 2+ Pedal (L) Abdominal Exam: Normal bowel sounds. Soft. Ankle Exam: Negative ankle edema Lower extremities: Negative lower extremity edema Neuro/Mental Status: A&O x3. Coherent Thoughts/Psych: Normal thought pattern. Appropriate mood and affect. Calm Appearance: In no acute distress Skin Exam: Normal inspection. Normal color. Warm. Dry Labs/Diagnostic Data Labs Test 11/12/24 06:45 Range/Units White Blood Count 10.0 4.4-10.8 10^3/uL Red Blood Count 4.16 4.0-5.20 10^6/uL Hemoglobin 12.0 L 12.2-16.2 g/dL Hematocrit 36.6 36.0-46.0 % Mean Corpuscular Volume 87.9 80.0-100.0 fL Mean Corpuscular Hemoglobin 28.8 28.0-32.0 pg Mean Corpuscular Hemoglobin Concent 32.8 32.0-36.0 g/dL Red Cell Distribution Width 17.8 H 11.8-14.3 % Platelet Count 345 140-450 10^3/uL Mean Platelet Volume 7.2 6.9-10.8 fL Neutrophils (%) (Auto) 84.7 H 37.0-80.0 % Lymphocytes (%) (Auto) 4.5 L 10.0-50.0 % Monocytes (%) (Auto) 9.8 0.0-12.0 % Eosinophils (%) (Auto) 0.4 0.0-7.0 % Basophils (%) (Auto) 0.6 0.0-2.0 % Neutrophils # (Auto) 8.5 1.6-8.6 10 ^3/uL Lymphocytes # (Auto) 0.5 0.4-5.4 10 ^3/uL Monocytes # (Auto) 1.0 0-1.3 10 ^3/uL Eosinophils # (Auto) 0 0-0.8 10 ^3/uL Basophils # (Auto) 0.1 0-0.2 10 ^3/uL Nucleated Red Blood Cells 0.0 % Sodium Level 141 136-145 mmol/L Potassium Level 4.0 3.5-5.1 mmol/L Chloride Level 99 98-107 mmol/L Carbon Dioxide Level 29 20-31 mmol/L Anion Gap 13 5-15 Blood Urea Nitrogen 34 H 9-23 mg/dL Creatinine 4.19 H 0.550-1.02 mg/dL Glomerular Filtration Rate Calc 10 >90 mL/min BUN/Creatinine Ratio 8.1 L 10.0-20.0 Serum Glucose 145 H 74-106 mg/dL Calcium Level 8.7 8.7-10.4 mg/dL Phosphorus Level 5.6 H 2.4-5.1 mg/dL Magnesium Level 1.6 1.6-2.6 mg/dL Thyroid Stimulating Hormone (TSH) 2.55 0.55-4.78 uIU/mL Assessment Atrial fibrillation with RVR, Stage III, newly diagnosed Rule out structural heart disease Lung cancer stage IV with possible Mets Suspected left renal mass HX of right breast cancer status post lumpectomy HX of left lower parathyroid adenoma excision HX of right renal mass status post nephrectomy Hypertension Pre-Diabetes ESRD on HD Cachexia Plan/Recommendation (Dr. Bartholomew) Discussed case with Dr. Bartholomew. Highly suspected for metastatic malignancy. Per records, the patient is DNR. We will continue conservative management for new onset atrial fibrillation. Rate control with Cardizem QID and metoprolol therapy BID. Hold antiarrhythmic therapy given unknown onset of a-fib. Initiate therapeutic Lovenox renal dose and transition to low-dose DOAC when appropriate ([id number] Score 5 points, HAS-BLED Score 3 points). Replete nadia ctrolytes as necessary, K>4 and Mg>2. Furthermore, obtain a thoracic echocardiogram to evaluate cardiac function and bilateral lower extremity duplex to rule out DVT. Pyrexia control PRN. Continue nephrology recommendations. Consider oncology consultation given malignancy. Thank you for allowing us to participate in this patient's care. Please call if you have any questions or concerns. Critical care time: 45 min. This medical document was created using an electronic medical record system with voice recognition software and computerized dictation system. Although this document has been carefully reviewed, there might still be some phonetic and typographical errors. Occasional wrong-word or ``sound-alike substitutions may have occurred due to the inherent limitations of voice recognition software. These areas are purely typographical due to imperfections of the software programs and do not reflect any compromise in the patient's medical care. Please read the chart carefully and recognize, using context, where these substitutions have occurred. Plan discussed with: Patient, Other NYHA Physical activity limitations: NA Date of Service: Nov 12, 2024 Billing Provider: DUNCAN SERRANO Cardiology Common Codes: 67883-YAOCQBTI CARE 30-74 MIN DUNCAN SERRANO Nov 12, 2024 16:27
[2024-11-12] MEDS: SEVELAMER 800 MG TAB PO SCH (19:03)
[2024-11-12] MEDS: FERROUS SULFATE 325mg EC TAB PO SCH (19:04)
[2024-11-12] MEDS: dilTIAZem HCL 60 MG TAB GT SCH (19:04)
[2024-11-12 19:25] VITALS: PULSE 133; RESP 30; O2SAT 91
--- NOTE | 2024-11-12 19:31 | DVH ---
Bilateral lower extremity venous duplex Clinical History: RLE edema Comparison: None Technique: Duplex Doppler evaluation of the deep venous systems of both lower extremities from the common femora l veins to the popliteal veins including color Doppler and spectral/pulsed waveform analysis was perf ormed. Findings: RIGHT SIDE: The common femoral vein demonstrates appropriate compressibility and waveform variability. Great saphenous vein not visualized. The femoral vein demonstrates appropriate compressibility and waveform variability. The deep femoral vein demonstrates appropriate compressibility and waveform variability. The popliteal vein demonstrates appropriate compressibility and waveform variability. There is normal compressibility at the tibioperoneal trunk. Cystic lesion measuring approximately 4.1 x 1.7 x 1.1 cm noted in right popliteal fossa consistent w ith Srivastava's cyst. LEFT SIDE: The common femoral vein demonstrates appropriate compressibility and waveform variability. There is compressibility/patency of the great saphenous vein at the proximal thigh. The femoral vein demonstrates appropriate compressibility and waveform variability. The deep femoral vein demonstrates appropriate compressibility and waveform variability. The popliteal vein demonstrates appropriate compressibility and waveform variability. There is normal compressibility at the tibioperoneal trunk. Cystic lesion measuring approximately 3.8 x 1.9 x 0.6 cm noted in left popliteal fossa consistent wi th Srivastava's cyst. Impression: No evidence of right or left femoropopliteal venous thrombosis. Evidence of bilateral Srivastava's cysts.
[2024-11-12] MEDS: MAGNESIUM SULFATE 1GM/100ML 100 ML IV ONE (20:00)
[2024-11-12] MEDS: ENOXAPARIN SOD 100 MG/1 ML SYRINGE SC ONE (20:07)
[2024-11-12 21:48] LABS: Urine Bacteria None Seen /hpf (None Seen)
[2024-11-12 21:56] LABS: Urine Amorphous Crystal FEW /hpf (None Seen); Urine Blood Negative /uL (Negative); Urine Clarity Clear (Clear); Urine Color Yellow (Yellow); Urine Protein, UAD 2+ (Negative); Urine Specific Gravity 1.022 (1.001-1.035); Urine Squamous Epithelial Cell FEW /hpf (<5); Urine Urobilinogen Normal (Negative); Urine WBC 2 /HPF (0-5)
[2024-11-12] MEDS ORDERED: CARVEDILOL 12.5 MG TAB PO SCH (22:00)
[2024-11-12] MEDS ORDERED: METOPROLOL TARTRATE 25 MG TAB PO SCH (22:00)
[2024-11-12] MEDS: METOPROLOL TARTRATE 25 MG TAB PO SCH (22:47)
[2024-11-12] MEDS: hydrALAZINE HCL 25 MG TAB PO SCH (22:47)
[2024-11-12] MEDS: GABAPENTIN 300 MG CAP PO SCH (22:48)
[2024-11-12] MEDS: ATORVASTATIN 20 MG TAB PO SCH (22:48)
[2024-11-13 05:15] LABS: Basophils # (auto) 0 10 ^3/uL (0-0.2); Basophils % (auto) 0.4 % (0.0-2.0); Eosinophils # (auto) 0 10 ^3/uL (0-0.8); Hematocrit 36.1 % (36.0-46.0); Hemoglobin 11.5 g/dL (12.2-16.2); Lymphocytes # (auto) 0.5 10 ^3/uL (0.4-5.4); Lymphocytes % (auto) 3.6 % (10.0-50.0); Mean Corpuscular Hemoglobin 27.9 pg (28.0-32.0); Mean Corpuscular Hgb Conc. 31.9 g/dL (32.0-36.0); Mean Corpuscular Volume 87.4 fL (80.0-100.0); Monocytes # (auto) 0.9 10 ^3/uL (0-1.3); Monocytes % (auto) 7.2 % (0.0-12.0); Neutrophils # (auto) 11.4 10 ^3/uL (1.6-8.6); Neutrophils % (auto) 88.8 % (37.0-80.0); Nucleated Red Blood Cells % 0.1 %; Platelet Count (auto) 330 10^3/uL (140-450); Red Blood Cells 4.13 10^6/uL (4.0-5.20); Red Cell Distribution Width 17.8 % (11.8-14.3); White Blood Cell 12.8 10^3/uL (4.4-10.8)
[2024-11-13 05:23] LABS: Albumin 3.9 g/dL (3.2-4.8); Alkaline Phosphatase 76 U/L (46-116); Anion Gap 13 (5-15); BUN/Creatinine Ratio 9.5 (10.0-20.0); Calcium 8.9 mg/dL (8.7-10.4); Carbon Dioxide 28 mmol/L (20-31); Chloride 100 mmol/L (98-107); Potassium 4.7 mmol/L (3.5-5.1); Sodium 141 mmol/L (136-145)
[2024-11-13 05:33] LABS: Alanine Aminotransferase < 9 U/L (7-40); Aspartate Aminotransferase 10 U/L (13-40); Bilirubin, Total 0.2 mg/dL (0.2-1.0); Blood Urea Nitrogen 42 mg/dL (9-23); Glucose 114 mg/dL (74-106)
[2024-11-13] MEDS: ASPirin-EC 81 mg tab PO SCH (06:35)
[2024-11-13] MEDS: dilTIAZem HCL 60 MG TAB PO SCH (06:36)
[2024-11-13] MEDS: Febuxostat (Uloric) 40MG TABLET PO SCH (07:00)
[2024-11-13 08:00] VITALS: PULSE 119; RESP 26; O2SAT 92
[2024-11-13] MEDS ORDERED: CALCITRIOL 0.25 MCG CAP PO SCH (10:00)
[2024-11-13] MEDS ORDERED: amLODIPine BESYLATE 5 MG TAB PO SCH (10:00)
--- NOTE | 2024-11-13 10:19 | DVHPN2 ---
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 Vital Sign Date Time Temp Pulse Resp B/P (MAP) Pulse Ox O2 Delivery O2 Flow Rate FiO2 11/13/24 09:00 121 20 112/70 (84) 92 11/13/24 08:00 98.4 98.4 11/13/24 08:00 Oxymizer 8 N/A Total Intake and Output 11/12/24 11/12/24 11/13/24 15:00 23:00 07:00 Intake Total 100 ml 200 ml Balance 100 ml 200 ml medications Current Medications Medications Dose Ordered Sig/Perri Route Start Time Stop Time Status Last Admin Dose Admin Aspirin 81 mg QAM PO 11/13/24 07:00 11/13/24 06:35 Calcitriol 0.25 mcg DAILY PO 11/13/24 10:00 Hold Clonidine HCl 0.1 mg Q4HP PRN PO 11/12/24 14:45 Gabapentin 300 mg TID PO 11/12/24 22:00 11/13/24 06:35 Atorvastatin Calcium 10 mg HS PO 11/12/24 22:00 11/12/24 22:48 Patient Own Medication 1 tab QAM PO 11/13/24 07:00 Ferrous Sulfate 325 mg BIDWM PO 11/12/24 18:00 11/12/24 19:04 Folic Acid 1 mg DAILY PO 11/13/24 10:00 Hydralazine HCl 100 mg TID PO 11/12/24 22:00 11/13/24 06:36 Patient Own Medication 1 tab QAM PO 11/13/24 07:00 Pantoprazole Sodium 40 mg DAILY PO 11/13/24 10:00 Sevelamer HCl 800 mg TIDWM PO 11/12/24 18:00 11/12/24 19:03 Levofloxacin/ Dextrose 100 ml @ 100 mls/hr Q48H IV 11/12/24 13:00 Ondansetron HCl 4 mg Q4HP PRN IV 11/12/24 14:45 Docusate Sodium 100 mg BIDPRN PRN PO 11/12/24 14:45 Morphine Sulfate 2 mg Q4HPRN PRN IV 11/12/24 14:45 Nitroglycerin 0.4 mg Q5MINP PRN SL 11/12/24 14:45 Hydralazine HCl 10 mg Q6HP PRN IV 11/12/24 16:00 Enoxaparin Sodium 50 mg HS SC 11/13/24 22:00 Acetaminophen 650 mg Q6HP PRN PO 11/12/24 16:00 Metoprolol Tartrate 25 mg BID PO 11/12/24 22:00 11/12/24 22:47 Diltiazem HCl 30 mg Q6HR PO 11/13/24 06:00 11/13/24 06:36 Examination: GENERAL:Abnormal (Generalized weakness), LUNGS:Abnormal (Diminished bilateral lower lobes), CVS:Abnormal (Atrial flutter, rate 110's), NEURO:Normal laboratory and microbiology Laboratory Tests 11/13/24 04:36 Test 11/13/24 04:36 Range/Units Serum Glucose 114 H 74-106 mg/dL Problem List/Assessment/Plan Problem List/Assessment/Plan Atrial fibrillation with RVR, Stage III, newly diagnosed, now Atrial flutter Severe tricuspid regurgitation Moderate to severe pulmonary hypertension Lung cancer stage IV with possible Mets Suspected left renal mass HX of right breast cancer status post lumpectomy HX of left lower parathyroid adenoma excision HX of right renal mass status post nephrectomy Hypertension Pre-Diabetes ESRD on HD Cachexia Plan/Recommendation (Dr. Espinal) Patient seen and examined at bedside with Dr. Espinal. Thoracic echocardiogram reveals EF 55%, RVSP 55-60 mmHg. Highly suspected for metastatic malignancy. Per records, the patient is DNR. We will continue conservative management for new onset atrial fibrillation. Continue therapeutic Lovenox renal dose and transition to low-dose DOAC when appropriate ([id number] Score 5 points, HAS- BLED Score 3 points). Stop Cardizem. Continue rate control with beta donna and up-titrate as needed. Initiate oral antiarrhythmic agent, amiodarone as per . Replete electrolytes as necessary, K>4 and Mg>2. Continue nephrology recommendations. Consider oncology consultation given malignancy. Thank you for allowing us to participate in this patient's care. Please call if you have any questions or concerns. Critical care time: 39 min. This medical document was created using an electronic medical record system with voice recognition software and computerized dictation system. Although this document has been carefully reviewed, there might still be some phonetic and typographical errors. Occasional wrong-word or ``sound-alike substitutions may have occurred due to the inherent limitations of voice recognition software. These areas are purely typographical due to imperfections of the software programs and do not reflect any compromise in the patient's medical care. Please read the chart carefully and recognize, using context, where these substitutions have occurred. Plan discussed with: Patient, Daughter Date of Service: Nov 13, 2024 Billing Provider: SU OSULLIVAN Common Visit Codes: [id number] INP/OBS CARE(HIGH) SU OSULLIVAN Nov 13, 2024 10:19
[2024-11-13] MEDS: FOLIC ACID 1 MG TAB PO SCH (11:38)
[2024-11-13] MEDS: PANTOPRAZOLE 40 MG TAB PO SCH (11:39)
--- NOTE | 2024-11-13 11:44 | DVHPN2 ---
Progress Note Date Seen: Nov 13, 2024 Medical Necessity Reason Pt with a Central, PICC or Fol: Yes The following are medically ne: Trujillo Catheter Reason for trujillo catheter: Strict I&O Subjective Patient reports: No new complaints Review of Systems: HEENT:Normal, CVS:Normal, RESPIRATORY:Normal, GI:Normal, :Normal, MSK:Normal, NEURO:Normal Objective vital signs Vital Sign Date Time Temp Pulse Resp B/P (MAP) Pulse Ox O2 Delivery O2 Flow Rate FiO2 11/13/24 11:00 120 34 117/69 (85) 91 11/13/24 08:00 98.4 98.4 11/13/24 08:00 Oxymizer 8 N/A Total Intake and Output 11/12/24 11/12/24 11/13/24 15:00 23:00 07:00 Intake Total 100 ml 200 ml Balance 100 ml 200 ml medications Current Medications Medications Dose Ordered Sig/Perri Route Start Time Stop Time Status Last Admin Dose Admin Aspirin 81 mg QAM PO 11/13/24 07:00 11/13/24 06:35 81 MG Calcitriol 0.25 mcg DAILY PO 11/13/24 10:00 Hold Clonidine HCl 0.1 mg Q4HP PRN PO 11/12/24 14:45 Gabapentin 300 mg TID PO 11/12/24 22:00 11/13/24 06:35 300 MG Atorvastatin Calcium 10 mg HS PO 11/12/24 22:00 11/12/24 22:48 10 MG Patient Own Medication 1 tab QAM PO 11/13/24 07:00 Ferrous Sulfate 325 mg BIDWM PO 11/12/24 18:00 11/12/24 19:04 325 MG Folic Acid 1 mg DAILY PO 11/13/24 10:00 Hydralazine HCl 100 mg TID PO 11/12/24 22:00 11/13/24 06:36 100 MG Patient Own Medication 1 tab QAM PO 11/13/24 07:00 Pantoprazole Sodium 40 mg DAILY PO 11/13/24 10:00 Sevelamer HCl 800 mg TIDWM PO 11/12/24 18:00 11/12/24 19:03 800 MG Levofloxacin/ Dextrose 100 ml @ 100 mls/hr Q48H IV 11/12/24 13:00 Ondansetron HCl 4 mg Q4HP PRN IV 11/12/24 14:45 Docusate Sodium 100 mg BIDPRN PRN PO 11/12/24 14:45 Morphine Sulfate 2 mg Q4HPRN PRN IV 11/12/24 14:45 Nitroglycerin 0.4 mg Q5MINP PRN SL 11/12/24 14:45 Hydralazine HCl 10 mg Q6HP PRN IV 11/12/24 16:00 Enoxaparin Sodium 50 mg HS SC 11/13/24 22:00 Acetaminophen 650 mg Q6HP PRN PO 11/12/24 16:00 Metoprolol Tartrate 25 mg BID PO 11/12/24 22:00 11/12/24 22:47 25 MG Diltiazem HCl 30 mg Q6HR PO 11/13/24 06:00 11/13/24 06:36 30 MG Examination: GENERAL:Normal, HEENT:Normal, NECK:Normal, LUNGS:Normal, LUNGS:Abnormal (on oxygen), CVS:Normal, ABDOMEN:Normal, MSK:Normal, SKIN:Normal, NEURO:Normal, :Normal laboratory and microbiology Laboratory Tests 11/13/24 04:36 Test 11/13/24 04:36 Range/Units Serum Glucose 114 H 74-106 mg/dL Problem List/Assessment/Plan Problem List/Assessment/Plan #1 acute resp failure: cont oxygen #2 acute on chronic diastolic heart failure #3 severe pulm htn #4 mets renal cancer/multiple lung masses #5 a fib with rvr: cont meds, lovenox #6 h/o breast cancer #7 htn #8 esrd: on hemodialysis advance care planning- full code- time spent 21 mins Plan discussed with: Patient, Daughter My Orders My Orders Orders - ROX ZAMORANO MD Procedure Category Date Status Time Transfer Orders XFER 11/13/24 Transmitted 11:36 Basic Metabolic Panel LAB 11/14/24 Verified 06:00 Complete Blood Count LAB 11/14/24 Verified 06:00 Critical Care Time (mins): 38 (critical care time 38 mins) Date of Service: Nov 13, 2024 Billing Provider: ROX ZAMORANO MD Common Visit Codes: 23295-[id number] CARE 30-74 MIN ROX ZAMORANO MD Nov 13, 2024 11:44
[2024-11-13] MEDS: AMIODARONE HCL 200 MG TAB PO ONE (14:42)
--- NOTE | 2024-11-13 14:42 | DVHSR ---
APPROVED REPORT EXAM: Two-dimensional and M-mode echocardiogram with Doppler and color Doppler. Blood Pressure: 121/74 mmHg INDICATION Dyspnea Heart Failure Peripheral Edema Eval for cardiac function RISK FACTORS Height: 5'5", Weight: 114 DIMENSIONS LVDd3.6 (3.8-5.7cm)LA (2D)4.6 (1.9-4.0cm)Aortic Root3.3 (2.0-3.7cm) LVDs2.6 (2.5-4.0cm)LA (MM) (1.9-4.0cm)Aortic Cusp Exc1.3 (1.5-2.0cm) EF (%) 56.0 (55-70%)Rt. Atrium5.4 (1.9-4.0cm)Asc. Aorta3.0 cm IVSd1.2 (0.7-1.1cm)RV (D)4.5 (1.8-2.4cm) PWd1.0 (0.7-1.1cm) Mitral Valve MitralMitral Stenosis E wave1.37m/sMV Mean GR.mmHg E/A ratio0.02D MVAcm2 Aortic Valve Aortic ValveAortic Stenosis V10.83m/Jack Mean GR.6mmHg V21.48m/[place] GR.9mmHg LVOT Diameter2.0 (1.8-2.4cm)Doppler AVA1.76cm2 2D AVA1.85cm2 Pulmonic Valve V20.82m/s Tricuspid Valve TR Velocity3.40m/s [id number] Other Information Quality : Technically LimitedRhythm : Conclusion LVEF normal 55% RV moderately dilated and moderately hypokientic RA severely dilated Left atrium moderately dilated Severe tricuspid regurgitation Moderate to severe pulmonary htn, RVSP 55-60mmgh Mild aortic stenosis
[2024-11-13] MEDS: SODIUM CHL 0.9% 1000 ML BAG XX ONE (15:45)
--- NOTE | 2024-11-13 15:48 | DVHINCON2 ---
Date of service: Nov 13, 2024 Reason for Consultation End-stage renal disease History of Present Illness 84-year-old female past medical history of end-stage renal disease on hemodialysis advanced lung cancer, diabetes, hypertension, hyperlipidemia Past Medical History As above Past Surgical History hysterectomy, thyroidectomy, and tonsillectomy Allergies: Coded Allergies: Azithromycin (Verified Allergy, Severe, BS DROPPED, PT COLD CLAMY, , 08/11/20) Home Meds Active Scripts Clonidine Hydrochloride (Clonidine Hcl) 0.1 Mg Tab, 0.1 MG PO Q4HP PRN, #60 TAB as needed for SBP >170 and/or DBP >90 Prov:GRICELDA HOLGUIN MD 11/25/21 Carvedilol (COREG) 12.5 Mg Tab, 12.5 MG PO Q12HR for 30 Days, #60 TAB Prov:GRICELDA HOLGUIN MD 11/25/21 Reported Medications Ferrous Sulfate (Ferrous Sulfate) 325 Mg Tab, 325 MG PO BIDWM for 30 Days, MG 11/19/21 Furosemide (Lasix) 40 Mg Tab, 1 TAB PO DAILY for 90 Days, #90 11/19/21 Calcitriol (Calcitriol) 0.25 Mcg Cap, 0.25 MCG PO DAILY for 30 Days, MCG 11/19/21 Folic Acid (Folic Acid) 1 Mg Tab, 1 MG PO DAILY for 30 Days, MG 11/19/21 Amlodipine Besylate (Amlodipine Besylate) 5 Mg Tab, 10 MG PO DAILY for 30 Days, MG 11/19/21 Omeprazole (Omeprazole Dr) 20 Mg Cap, 20 MG PO DAILY, CAP 08/11/20 Hydralazine HCl (Hydralazine Hydrochloride) 100 Mg Tab, 100 MG PO TID 12/13/19 Sevelamer Carbonate (Renvela) 800 Mg Tab, 1 TAB PO TID for CHRONIC KIDNEY DISEASE 07/11/19 Aspirin (Aspir-Low) 81 Mg Tab, 81 MG PO QAM for CARDIAC HEALTH 07/11/19 Atorvastatin Calcium (ATORVASTATIN CALCIUM) 10 Mg Tab, 1 TAB PO QPM for HYPERLIPIDEMIA 07/11/19 Febuxostat (Uloric) 40 Mg Tab, 1 TAB PO QAM for GOUT 10/31/17 Letrozole (Femara) 2.5 Mg Tab, 1 TAB PO QAM for HORMONE REPLACEMENT 09/28/17 Gabapentin (Gabapentin) 300 Mg Cap, 300 MG PO TID for NEUROPATHY 11/02/15 Current Medications Current Medications Medications (Trade) Dose Ordered Sig/Perri Route PRN Reason Start Time Stop Time Status Last Admin Amlodipine Besylate (Norvasc Tablet) 10 mg DAILY PO 11/13/24 10:00 11/12/24 16:20 DC Aspirin (Ecotrin Enteric Coated Tablet) 81 mg QAM PO 11/13/24 07:00 11/13/24 06:35 Calcitriol (Rocaltrol Capsule) 0.25 mcg DAILY PO 11/13/24 10:00 Hold Carvedilol (Coreg Tablet) 12.5 mg Q12HR PO 11/12/24 22:00 11/12/24 17:29 DC Gabapentin (Neurontin Capsule) 300 mg TID PO 11/12/24 22:00 11/13/24 14:43 Atorvastatin Calcium (Lipitor) 10 mg HS PO 11/12/24 22:00 11/12/24 22:48 Patient Own Medication 1 tab QAM PO 11/13/24 07:00 11/13/24 11:40 DC Ferrous Sulfate 325 mg BIDWM PO 11/12/24 18:00 11/13/24 11:38 Folic Acid 1 mg DAILY PO 11/13/24 10:00 11/13/24 11:38 Hydralazine HCl (Apresoline Tablet) 100 mg TID PO 11/12/24 22:00 11/13/24 11:40 DC 11/13/24 06:36 Patient Own Medication 1 tab QAM PO 11/13/24 07:00 Pantoprazole Sodium (Protonix Tablet) 40 mg DAILY PO 11/13/24 10:00 11/13/24 11:39 Sevelamer HCl (Renagel) 800 mg TIDWM PO 11/12/24 18:00 11/13/24 11:40 Hydralazine HCl (Apresoline Injection) 10 mg Q6HP PRN IV SBP>150 11/12/24 16:00 11/13/24 11:40 DC Enoxaparin Sodium (Lovenox) 50 mg HS SC 11/13/24 22:00 Acetaminophen (Tylenol Tablet) 650 mg Q6HP PRN PO PAIN SCALE 1-3 OR TEMP>100.4 11/12/24 16:00 Digoxin (Lanoxin Tablet) 0.125 mg EOD PO 11/14/24 10:00 11/12/24 17:29 DC Metoprolol Tartrate (Lopressor Tablet) 25 mg TID PO 11/12/24 22:00 11/12/24 17:43 DC Diltiazem HCl (Cardizem Immediate Release Tab) 30 mg Q6HR GT 11/12/24 18:00 11/13/24 06:06 DC 11/12/24 19:04 Metoprolol Tartrate (Lopressor Tablet) 25 mg BID PO 11/12/24 22:00 11/13/24 11:39 Diltiazem HCl (Cardizem Immediate Release Tab) 30 mg Q6HR PO 11/13/24 06:00 11/13/24 14:26 DC 11/13/24 11:39 Amiodarone HCl (Cordarone Tablet) 400 mg BID PO 11/13/24 22:00 Family History: Cardiovascular disease FATHER Chronic obstructive pulmonary disease MOTHER FH: breast cancer MOTHER FH: heart attack G8 FATHER FH: heart disease G8 FATHER FATHER ( FROM HEART DISEASE.) FH: hypertension MOTHER FATHER FH: stomach cancer MOTHER Hypertension G8 MOTHER G8 FATHER FATHER Ischemic heart disease G8 FATHER FATHER Review of Systems Short of breath H&P Exam Vital Signs/I&O Vital Sign Date Time Temp Pulse Resp B/P (MAP) Pulse Ox O2 Delivery O2 Flow Rate FiO2 11/13/24 14:00 98.2 117 26 111/67 (82) 90 98.2 11/13/24 08:00 Oxymizer 8 N/A Intake and Output 11/12/24 11/13/24 19:00 07:00 Intake Total 100 ml 200 ml Balance 100 ml 200 ml Intake IV Total 100 ml 200 ml Physical Exam Elderly female Appears in distress due to shortness of breath bleed breathing on high flow nasal cannula Abdomen is soft No ankle edema Left arm AV fistula Mild crackles and wheezes Labs/Diagnostic Data Labs/Diagnostic Data Laboratory Tests Test 11/13/24 04:36 11/12/24 21:35 11/12/24 06:45 Range/Units White Blood Count 12.8 #H 10.0 4.4-10.8 10^3/uL Red Blood Count 4.13 4.16 4.0-5.20 10^6/uL Hemoglobin 11.5 L 12.0 L 12.2-16.2 g/dL Hematocrit 36.1 36.6 36.0-46.0 % Mean Corpuscular Volume 87.4 87.9 80.0-100.0 fL Mean Corpuscular Hemoglobin 27.9 L 28.8 28.0-32.0 pg Mean Corpuscular Hemoglobin Concent 31.9 L 32.8 32.0-36.0 g/dL Red Cell Distribution Width 17.8 H 17.8 H 11.8-14.3 % Platelet Count 330 345 140-450 10^3/uL Mean Platelet Volume 7.3 7.2 6.9-10.8 fL Neutrophils (%) (Auto) 88.8 H 84.7 H 37.0-80.0 % Lymphocytes (%) (Auto) 3.6 L 4.5 L 10.0-50.0 % Monocytes (%) (Auto) 7.2 9.8 0.0-12.0 % Eosinophils (%) (Auto) 0.0 0.4 0.0-7.0 % Basophils (%) (Auto) 0.4 0.6 0.0-2.0 % Neutrophils # (Auto) 11.4 H 8.5 1.6-8.6 10 ^3/uL Lymphocytes # (Auto) 0.5 0.5 0.4-5.4 10 ^3/uL Monocytes # (Auto) 0.9 1.0 0-1.3 10 ^3/uL Eosinophils # (Auto) 0 0 0-0.8 10 ^3/uL Basophils # (Auto) 0 0.1 0-0.2 10 ^3/uL Nucleated Red Blood Cells 0.1 0.0 % Sodium Level 141 141 136-145 mmol/L Potassium Level 4.7 4.0 3.5-5.1 mmol/L Chloride Level 100 99 98-107 mmol/L Carbon Dioxide Level 28 29 20-31 mmol/L Anion Gap 13 13 5-15 Blood Urea Nitrogen 42 H 34 H 9-23 mg/dL Creatinine 4.42 H 4.19 H 0.550-1.02 mg/dL Glomerular Filtration Rate Calc 9 10 >90 mL/min BUN/Creatinine Ratio 9.5 L 8.1 L 10.0-20.0 Serum Glucose 114 H 145 H 74-106 mg/dL Calcium Level 8.9 8.7 8.7-10.4 mg/dL Magnesium Level 2.0 1.6 1.6-2.6 mg/dL Total Bilirubin 0.2 0.2-1.0 mg/dL Aspartate Amino Transferase (AST) 10 L 13-40 U/L Alanine Aminotransferase (ALT) < 9 7-40 U/L Alkaline Phosphatase 76 46-116 U/L B-Type Natriuretic Peptide 2109.87 0-100 pg/mL Total Protein 7.0 5.7-8.2 g/dL Albumin 3.9 3.2-4.8 g/dL Urine Color Yellow Yellow Urine Clarity Clear Clear Urine pH 6.0 5.0-9.0 Urine Specific [place] 1.022 1.001-1.035 Urine Protein 2+ H Negative Urine Ketones Negative Negative Urine Blood Negative Negative /uL Urine Nitrite Negative Negative Urine Bilirubin Negative Negative Urine Urobilinogen Normal Negative mg/dL Urine Leukocyte Esterase Negative Negative /uL Urine RBC 2 0 - 4 /hpf Urine Microscopic WBC 2 0-5 /HPF Urine Squamous Epithelial Cells Few <5 /hpf Urine Amorphous Crystals Few None Seen /hpf Urine Bacteria None seen None Seen /hpf Urine Glucose Normal Normal mg/dL Phosphorus Level 5.6 H 2.4-5.1 mg/dL Thyroid Stimulating Hormone (TSH) 2.55 0.55-4.78 uIU/mL Assessment End-stage renal disease 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
[2024-11-13 19:35] VITALS: PULSE 136; RESP 13; O2SAT 93
[2024-11-14] VITALS (7 sets, daily range): BP systolic 97–113; BP diastolic 58–63; PULSE 121–127; RESP 19–24; TEMP 98.1–98.4; O2SAT 82–91
[2024-11-14] MEDS: GABAPENTIN 100 MG CAP PO SCH (00:45)
[2024-11-14] MEDS: AMIODARONE HCL 200 MG TAB PO SCH (00:46)
[2024-11-14] MEDS: ENOXAPARIN SOD 100 MG/1 ML SYRINGE SC SCH (00:48)
[2024-11-14 05:33] LABS: Basophils # (auto) 0 10 ^3/uL (0-0.2); Basophils % (auto) 0.3 % (0.0-2.0); Eosinophils # (auto) 0.1 10 ^3/uL (0-0.8); Eosinophils % (auto) 0.5 % (0.0-7.0); Hematocrit 38.7 % (36.0-46.0); Hemoglobin 12.5 g/dL (12.2-16.2); Lymphocytes # (auto) 0.4 10 ^3/uL (0.4-5.4); Lymphocytes % (auto) 3.9 % (10.0-50.0); Mean Corpuscular Hemoglobin 28.1 pg (28.0-32.0); Mean Corpuscular Hgb Conc. 32.3 g/dL (32.0-36.0); Mean Corpuscular Volume 87.1 fL (80.0-100.0); Monocytes # (auto) 0.9 10 ^3/uL (0-1.3); Monocytes % (auto) 8.3 % (0.0-12.0); Neutrophils # (auto) 9.4 10 ^3/uL (1.6-8.6); Nucleated Red Blood Cells % 0.1 %; Platelet Count (auto) 372 10^3/uL (140-450); Red Blood Cells 4.44 10^6/uL (4.0-5.20); Red Cell Distribution Width 18.2 % (11.8-14.3); White Blood Cell 10.8 10^3/uL (4.4-10.8)
[2024-11-14 05:42] LABS: Anion Gap 11 (5-15); Calcium 9.2 mg/dL (8.7-10.4); Carbon Dioxide 30 mmol/L (20-31); Potassium 4.1 mmol/L (3.5-5.1); Sodium 138 mmol/L (136-145)
[2024-11-14 05:43] LABS: Chloride 97 mmol/L (98-107)
[2024-11-14 05:47] LABS: BUN/Creatinine Ratio 8.1 (10.0-20.0)
[2024-11-14] MEDS: MORPHINE SULFATE INJ 2 MG/ml SYRG IV PRN (05:49)
[2024-11-14 05:58] LABS: Blood Urea Nitrogen 24 mg/dL (9-23); Glucose 148 mg/dL (74-106)
[2024-11-14] MEDS ORDERED: AMLO1TAB22 PO (09:24)
[2024-11-14] MEDS ORDERED: HYDR-4902 PO (09:24)
[2024-11-14] MEDS ORDERED: PRIM125T PO (09:27)
[2024-11-14] MEDS ORDERED: DIGOXIN 0.125 MG TAB PO SCH (10:00)
--- NOTE | 2024-11-14 13:14 | DVHPN2 ---
Progress Note Date Seen: Nov 14, 2024 Medical Necessity Reason Pt with a Central, PICC or Fol: Yes The following are medically ne: Trujillo Catheter Reason for trujillo catheter: Strict I&O Subjective Patient reports: No new complaints Review of Systems: HEENT:Normal, CVS:Normal, RESPIRATORY:Normal, GI:Normal, :Normal, MSK:Normal, NEURO:Normal Objective vital signs Vital Sign Date Time Temp Pulse Resp B/P (MAP) Pulse Ox O2 Delivery O2 Flow Rate FiO2 11/14/24 12:08 129 126/76 11/14/24 12:00 21 89 11/14/24 08:00 Oxymizer 15 N/A 11/14/24 08:00 97.7 97.7 medications Current Medications Medications Dose Ordered Sig/Perri Route Start Time Stop Time Status Last Admin Dose Admin Aspirin 81 mg QAM PO 11/13/24 07:00 11/14/24 05:07 81 MG Calcitriol 0.25 mcg DAILY PO 11/13/24 10:00 Hold Atorvastatin Calcium 10 mg HS PO 11/12/24 22:00 11/14/24 00:46 10 MG Ferrous Sulfate 325 mg BIDWM PO 11/12/24 18:00 11/14/24 08:35 325 MG Folic Acid 1 mg DAILY PO 11/13/24 10:00 11/14/24 12:08 1 MG Patient Own Medication 1 tab QAM PO 11/13/24 07:00 Pantoprazole Sodium 40 mg DAILY PO 11/13/24 10:00 11/14/24 12:08 40 MG Sevelamer HCl 800 mg TIDWM PO 11/12/24 18:00 11/14/24 12:08 800 MG Ondansetron HCl 4 mg Q4HP PRN IV 11/12/24 14:45 Docusate Sodium 100 mg BIDPRN PRN PO 11/12/24 14:45 Morphine Sulfate 2 mg Q4HPRN PRN IV 11/12/24 14:45 11/14/24 05:49 2 MG Nitroglycerin 0.4 mg Q5MINP PRN SL 11/12/24 14:45 Enoxaparin Sodium 50 mg HS SC 11/13/24 22:00 11/14/24 00:48 50 MG Acetaminophen 650 mg Q6HP PRN PO 11/12/24 16:00 Metoprolol Tartrate 25 mg BID PO 11/12/24 22:00 11/14/24 12:08 25 MG Amiodarone HCl 400 mg BID PO 11/13/24 22:00 11/14/24 12:09 400 MG Gabapentin 200 mg HS PO 11/13/24 22:00 11/14/24 00:45 200 MG Examination: GENERAL:Normal, HEENT:Normal, NECK:Normal, LUNGS:Normal, LUNGS:Abnormal (on oxygen), CVS:Normal, CVS:Abnormal (a fib), ABDOMEN:Normal, MSK:Normal, SKIN:Normal, NEURO:Normal, :Normal laboratory and microbiology Laboratory Tests 11/14/24 05:06 Test 11/14/24 05:06 Range/Units Serum Glucose 148 H 74-106 mg/dL Problem List/Assessment/Plan Problem List/Assessment/Plan #1 acute resp failure: cont oxygen #2 acute on chronic diastolic heart failure #3 severe pulm htn #4 mets renal cancer/multiple lung masses #5 a fib with rvr: cont meds, lovenox #6 h/o breast cancer #7 htn #8 esrd: on hemodialysis poor prognosis advance care planning- full code- time spent 21 mins Plan discussed with: Patient My Orders My Orders Orders - ROX ZAMORANO MD Procedure Category Date Status Time Chest Portable XY 11/15/24 Verified 06:00 Date of Service: Nov 14, 2024 Billing Provider: ROX ZAMORANO MD Common Visit Codes: [id number] INP/OBS CARE(HIGH) Secondary Visit Codes: [id number] CARE PLAN 30 MINUTES ROX ZAMORANO MD Nov 14, 2024 13:14
[2024-11-14] MEDS ORDERED: SODIUM CHL 0.9% 1000 ML BAG XX ONE (14:15)
[2024-11-14] MEDS: ALBUMIN 25% 100 ML IV ONE (14:35)
--- NOTE | 2024-11-14 15:03 | DVHPN2 ---
Progress Note Date Seen: Nov 14, 2024 Medical Necessity Reason Pt with a Central, PICC or Fol: Yes The following are medically ne: Trujillo Catheter Reason for trujillo catheter: Strict I&O Subjective Patient reports: Feels worse Review of Systems: RESPIRATORY:Abnormal Objective vital signs Vital Sign Date Time Temp Pulse Resp B/P (MAP) Pulse Ox O2 Delivery O2 Flow Rate FiO2 11/14/24 14:52 98.4 127 22 113/63 (80) 86 98.4 11/14/24 14:14 Oxymizer 15 N/A medications Current Medications Medications Dose Ordered Sig/Perri Route Start Time Stop Time Status Last Admin Dose Admin Aspirin 81 mg QAM PO 11/13/24 07:00 11/14/24 05:07 81 MG Calcitriol 0.25 mcg DAILY PO 11/13/24 10:00 Hold Atorvastatin Calcium 10 mg HS PO 11/12/24 22:00 11/14/24 00:46 10 MG Ferrous Sulfate 325 mg BIDWM PO 11/12/24 18:00 11/14/24 08:35 325 MG Folic Acid 1 mg DAILY PO 11/13/24 10:00 11/14/24 12:08 1 MG Patient Own Medication 1 tab QAM PO 11/13/24 07:00 Pantoprazole Sodium 40 mg DAILY PO 11/13/24 10:00 11/14/24 12:08 40 MG Sevelamer HCl 800 mg TIDWM PO 11/12/24 18:00 11/14/24 12:08 800 MG Ondansetron HCl 4 mg Q4HP PRN IV 11/12/24 14:45 Docusate Sodium 100 mg BIDPRN PRN PO 11/12/24 14:45 Morphine Sulfate 2 mg Q4HPRN PRN IV 11/12/24 14:45 11/14/24 05:49 2 MG Nitroglycerin 0.4 mg Q5MINP PRN SL 11/12/24 14:45 Enoxaparin Sodium 50 mg HS SC 11/13/24 22:00 11/14/24 00:48 50 MG Acetaminophen 650 mg Q6HP PRN PO 11/12/24 16:00 Metoprolol Tartrate 25 mg BID PO 11/12/24 22:00 11/14/24 12:08 25 MG Amiodarone HCl 400 mg BID PO 11/13/24 22:00 11/14/24 12:09 400 MG Gabapentin 200 mg HS PO 11/13/24 22:00 11/14/24 00:45 200 MG Examination: GENERAL:Abnormal, LUNGS:Abnormal laboratory and microbiology Laboratory Tests 11/14/24 05:06 Test 11/14/24 05:06 Range/Units Serum Glucose 148 H 74-106 mg/dL Problem List/Assessment/Plan Problem List/Assessment/Plan End-stage renal disease 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 Metastatic lung cancer Fluid overload Hypertension Afib RVR Status post hemodialysis treatment yesterday however patient's oxygen requirements remain high. Patient currently has elevated heart rate likely in the setting of atrial fibrillation Rate control ordered as per primary medical team Oxygen support Trial of sequential dialysis today fluid removal we will monitor closely for treatment tolerance Avoid hypotension Plan discussed with: Patient My Orders My Orders Orders - JUAN ANTONIO HAMLIN MD Procedure Category Date Status Time Hemodialysis Orders ORDERS 11/14/24 Transmitted 14:08 Dialysis Nursing JOANNE 11/14/24 In Process Message 14:08 Document Fluid Input JOANNE 11/14/24 In Process And Outpu 14:08 Albumin 25% (Albutein) PHA 11/14/24 In Process 14:15 Hepatitis B Surface LAB 11/14/24 Logged Antigen 14:54 JUAN ANTONIO HAMLIN MD Nov 14, 2024 15:03
[2024-11-14] MEDS: ONDANSETRON HCL 4 MG/2 ML VIAL IV PRN (16:28)
[2024-11-14] MEDS: HYDROcodone-ACET 5/325MG TAB PO PRN (16:58)
[2024-11-15 00:58] VITALS: BP 108/65; PULSE 127; RESP 20; TEMP 98.2; O2SAT 91
[2024-11-15 01:22] LABS: Base Excess 3.1 mmol/L (-2.0-3.0)
[2024-11-15 05:00] VITALS: BP 100/64; PULSE 127; RESP 18; TEMP 97.7; O2SAT 90
[2024-11-15 08:00] VITALS: PULSE 126; RESP 18; O2SAT 87
[2024-11-15 09:00] VITALS: BP 122/74; PULSE 125; RESP 17; TEMP 97; O2SAT 90
--- NOTE | 2024-11-15 09:26 | DVH ---
INDICATION: chf TECHNIQUE: Single AP portable chest radiograph was obtained. COMPARISON: XY CHEST PORTABLE on DOS: 11/12/24, XY CHEST XRAY 1 VIEW on DOS: 08/03/23, XY CHEST PORTABL E on DOS: 11/03/22, XY CHEST PORTABLE on DOS: 09/27/22, XY CHEST PORTABLE on DOS: 09/27/22, XY CHEST DYAN BLE on DOS: 11/12/24 FINDINGS: Lungs: Multiple pulmonary masses, increased in size compared to the prior exam. Superimposed consolid ation in the right mid and lower lung. Suspected at least small right pleural effusion. Atelectasis a nd/or consolidation in the left lower lung. No pneumothorax. Moderate elevation of the right hemidiap hragm. Cardiac: Moderate to marked cardiomegaly. Pulmonary vasculature: Unremarkable. Mediastinum/nely: Unremarkable. Bones: No acute osseous abnormality identified. Other: No other significant findings. IMPRESSION: 1. Multiple pulmonary masses, increased in size compared to the prior radiographs. 2. Superimposed consolidation in the right lung and atelectasis and/or consolidation in the left lowe r lung. Suspected small right pleural effusion. 3. Moderate to marked cardiomegaly.
--- NOTE | 2024-11-15 10:02 | DVHPN2 ---
Progress Note Date Seen: Nov 15, 2024 Medical Necessity Reason Pt with a Central, PICC or Fol: Yes The following are medically ne: Trujillo Catheter Reason for trujillo catheter: Strict I&O Subjective Patient reports: Other (off sedation unresponsive ) Review of Systems: Deferred Objective vital signs Vital Sign Date Time Temp Pulse Resp B/P (MAP) Pulse Ox O2 Delivery O2 Flow Rate FiO2 11/15/24 09:26 125 122/74 11/15/24 09:00 97.0 17 90 97.0 11/15/24 08:00 Non-Rebreather 15 N/A Total Intake and Output 11/14/24 11/14/24 11/15/24 15:00 23:00 07:00 Intake Total 300 ml 100 ml Balance 300 ml 100 ml medications Current Medications Medications Dose Ordered Sig/Perri Route Start Time Stop Time Status Last Admin Dose Admin Aspirin 81 mg QAM PO 11/13/24 07:00 11/14/24 05:07 81 MG Calcitriol 0.25 mcg DAILY PO 11/13/24 10:00 Hold Atorvastatin Calcium 10 mg HS PO 11/12/24 22:00 11/14/24 21:37 10 MG Ferrous Sulfate 325 mg BIDWM PO 11/12/24 18:00 11/15/24 08:00 325 MG Folic Acid 1 mg DAILY PO 11/13/24 10:00 11/14/24 12:08 1 MG Patient Own Medication 1 tab QAM PO 11/13/24 07:00 Pantoprazole Sodium 40 mg DAILY PO 11/13/24 10:00 11/15/24 09:25 40 MG Sevelamer HCl 800 mg TIDWM PO 11/12/24 18:00 11/14/24 12:08 800 MG Ondansetron HCl 4 mg Q4HP PRN IV 11/12/24 14:45 11/14/24 16:28 4 MG Docusate Sodium 100 mg BIDPRN PRN PO 11/12/24 14:45 Morphine Sulfate 2 mg Q4HPRN PRN IV 11/12/24 14:45 11/14/24 05:49 2 MG Nitroglycerin 0.4 mg Q5MINP PRN SL 11/12/24 14:45 Enoxaparin Sodium 50 mg HS SC 11/13/24 22:00 11/14/24 21:42 50 MG Acetaminophen 650 mg Q6HP PRN PO 11/12/24 16:00 Metoprolol Tartrate 25 mg BID PO 11/12/24 22:00 11/15/24 09:26 25 MG Amiodarone HCl 400 mg BID PO 11/13/24 22:00 11/15/24 09:26 400 MG Gabapentin 200 mg HS PO 11/13/24 22:00 11/14/24 21:36 200 MG Acetaminophen/ Hydrocodone Bitart 1 tab Q4HPRN PRN PO 11/14/24 16:30 11/15/24 09:25 1 TAB Examination: GENERAL:Abnormal, CVS:Abnormal, SKIN:Abnormal laboratory and microbiology Laboratory Tests 11/14/24 05:06 Test 11/14/24 05:06 Range/Units Serum Glucose 148 H 74-106 mg/dL Problem List/Assessment/Plan Problem List/Assessment/Plan End-stage renal disease 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 Metastatic lung cancer Fluid overload Hypertension Afib RVR family meeting today hospice candidate HD was yesterday will hold off for now persistent tachycardia Rate control ordered as per primary medical team Oxygen support Avoid hypotension Plan discussed with: Spouse My Orders My Orders Orders - JUAN ANTONIO HAMLIN MD Procedure Category Date Status Time Hemodialysis Orders ORDERS 11/14/24 Transmitted 14:08 Dialysis Nursing JOANNE 11/14/24 In Process Message 14:08 Document Fluid Input JOANNE 11/14/24 In Process And Outpu 14:08 Hepatitis B Surface LAB 11/14/24 In Process Antigen 14:54 JUAN ANTONIO HAMLIN MD Nov 15, 2024 10:02
--- NOTE | 2024-11-15 12:08 | DVHPN2 ---
Subjective Patient with extreme weakness. Reviewed: Care Plan, H&P, Labs, Medications Changes from previous H/P or p: No Changes General: Per HPI Eyes: No Pain, No Vision change, No Conjunctivae inflammation, No Eyelid inflammation, No Other, No Redness ENT: No Ear pain, No Ear discharge, No Nose pain, No Nose discharge, No Nose congestion, No Mouth pain, No Mouth swelling, No Throat pain, No Throat swelling, No Other Cardiovascular: No Chest Pain, No Palpitations, No Orthopnea, No Paroxysmal Noc. Dyspnea, No Edema, No Lt Headedness, No Other Respiratory: No Cough, No Dry, No Shortness of breath, No SOB with excertion, No Wheezing, No Hemoptysis, No Pleuritic Pain, No Sputum, No Other Gastrointestinal: No Nausea, No Vomiting, No Abdominal Pain, No Diarrhea, No Constipation, No Melena, No Hematochezia, No Other Genitourinary: No Dysuria, No Frequency, No Incontinence, No Hematuria, No Retention, No Other Musculoskeletal: No other, No neck pain, No shoulder pain, No arm pain, No back pain, No hand pain, No leg pain, No foot pain Skin: No Rash, No Lesions, No Jaundice, No Bruising, No Other Objective Vitals Vital Signs Date Time Temp Pulse Resp B/P (MAP) Pulse Ox O2 Delivery O2 Flow Rate FiO2 11/15/24 09:26 125 122/74 11/15/24 09:00 97.0 17 90 97.0 11/15/24 08:00 Non-Rebreather 15 N/A Intake/Output Intake and Output 11/15/24 07:00 Intake Total 400 ml Balance 400 ml Intake Oral 400 ml # Voids 1 General Appearance: Alert, moderate distress HEENT: Atraumatic, PERRLA Lungs: Clear to auscultation, Normal air movement Cardiovascular: Normal S1, Normal S2 Musculoskeletal: Normal sensory function, Normal motor function Skin: Dry, Intact Psych/Mental Status: Other (Withdrawn) Medications Current Medications Medications Dose Ordered Sig/Perri Route Start Time Stop Time Status Last Admin Dose Admin Aspirin 81 mg QAM PO 11/13/24 07:00 11/14/24 05:07 81 MG Calcitriol 0.25 mcg DAILY PO 11/13/24 10:00 Hold Atorvastatin Calcium 10 mg HS PO 11/12/24 22:00 11/14/24 21:37 10 MG Ferrous Sulfate 325 mg BIDWM PO 11/12/24 18:00 11/15/24 08:00 325 MG Folic Acid 1 mg DAILY PO 11/13/24 10:00 11/14/24 12:08 1 MG Patient Own Medication 1 tab QAM PO 11/13/24 07:00 Pantoprazole Sodium 40 mg DAILY PO 11/13/24 10:00 11/15/24 09:25 40 MG Sevelamer HCl 800 mg TIDWM PO 11/12/24 18:00 11/14/24 12:08 800 MG Ondansetron HCl 4 mg Q4HP PRN IV 11/12/24 14:45 11/14/24 16:28 4 MG Docusate Sodium 100 mg BIDPRN PRN PO 11/12/24 14:45 Morphine Sulfate 2 mg Q4HPRN PRN IV 11/12/24 14:45 11/14/24 05:49 2 MG Nitroglycerin 0.4 mg Q5MINP PRN SL 11/12/24 14:45 Enoxaparin Sodium 50 mg HS SC 11/13/24 22:00 11/14/24 21:42 50 MG Acetaminophen 650 mg Q6HP PRN PO 11/12/24 16:00 Metoprolol Tartrate 25 mg BID PO 11/12/24 22:00 11/15/24 09:26 25 MG Amiodarone HCl 400 mg BID PO 11/13/24 22:00 11/15/24 09:26 400 MG Gabapentin 200 mg HS PO 11/13/24 22:00 11/14/24 21:36 200 MG Acetaminophen/ Hydrocodone Bitart 1 tab Q4HPRN PRN PO 11/14/24 16:30 11/15/24 09:25 1 TAB Laboratory Results Laboratory Tests 11/14/24 05:06 Urinalysis Test 11/12/24 21:35 Urine Color Yellow (Yellow) Urine Clarity Clear (Clear) Urine pH 6.0 (5.0-9.0) Urine Specific [place] 1.022 (1.001-1.035) Urine Protein 2+ (Negative) H Urine Ketones Negative (Negative) Urine Blood Negative /uL (Negative) Urine Nitrite Negative (Negative) Urine Bilirubin Negative (Negative) Urine Urobilinogen Normal mg/dL (Negative) Urine Leukocyte Esterase Negative /uL (Negative) Urine RBC 2 /hpf (0 - 4) Urine Microscopic WBC 2 /HPF (0-5) Urine Squamous Epithelial Cells Few /hpf (<5) Urine Amorphous Crystals Few /hpf (None Seen) Urine Bacteria None seen /hpf (None Seen) Urine Glucose Normal mg/dL (Normal) Blood Gas Results Test 11/15/24 01:11 Arterial Blood pH 7.369 (7.350-7.450) FiO2 % 82.0 Labs and/or images reviewed: Labs reviewed by me, Image(s) reviewed by me Assessment/Plan Assessment/Plan Patient was: -acute hypoxic respiratory failure secondary to metastatic disease -renal cell carcinoma with lung mass metastasis -pulmonary hypertension -acute on chronic diastolic heart failure -history of breast cancer -primary hypertension -end-stage renal disease with hemodialysis Plan: -long discussion was made by primary hospitalist regarding poor prognosis. Plans to discharge home with hospice today. -continue O2 supplementation to keep saturation greater than 89%. Patient currently on Oxymizer at 15 L/min -further medications per hospice provider. Total time spent with patient discussing and formulating plan of care: 35 minutes. This medical document was created using an electronic medical record system with [employer] dictation system. Although this document has been carefully reviewed, there may still be some phonetic and typographical errors. These areas are purely typographical due to imperfections of the software programs, and do not reflect any compromise in the patient's medical care. Plan discussed with: Patient, Other (RN) Date of Service: Nov 15, 2024 Billing Provider: LORAINE FU NP Common Visit Codes: [id number] INP/OBS CARE(HIGH) LORAINE FU NP Nov 15, 2024 12:08
[2024-11-15 13:00] VITALS: BP 114/71; PULSE 121; RESP 16; TEMP 97.4; O2SAT 90
[2024-11-15 13:28] VITALS: BP 122/74; PULSE 125; TEMP 36.1
== END 2024-11-15 14:47 | disposition hospice, home (50) | DRG 291 ==
LOC: ER 05:47 → OVERFLOW 14:37 → TELE-EAST 11-14 13:30
PROVIDERS: ADMIT Nurse Practitioner Acute Care; ATTEND Nurse Practitioner Acute Care
PROC: 5A1D70Z Performance of Urinary Filtration, Intermittent, Less than 6 Hours Per Day (ICD-10-PCS; 2024-11-13)
PROC: 5A1D70Z Performance of Urinary Filtration, Intermittent, Less than 6 Hours Per Day (ICD-10-PCS; principal; 2024-11-14)
DX: I13.2 Hypertensive heart and chronic kidney disease with heart failure and with stage 5 chronic kidney disease, or end stage renal disease (principal); I50.33 Acute on chronic diastolic (congestive) heart failure; J96.01 Acute respiratory failure with hypoxia; N18.6 End stage renal disease; C34.90 Malignant neoplasm of unspecified part of unspecified bronchus or lung; R64 Cachexia; I48.20 Chronic atrial fibrillation, unspecified; Z68.1 Body mass index [BMI] 19.9 or less, adult; Z66 Do not resuscitate; Z51.5 Encounter for palliative care; I48.91 Unspecified atrial fibrillation; I27.29 Other secondary pulmonary hypertension; J98.4 Other disorders of lung; E11.22 Type 2 diabetes mellitus with diabetic chronic kidney disease; E78.5 Hyperlipidemia, unspecified; I07.1 Rheumatic tricuspid insufficiency; I25.10 Atherosclerotic heart disease of native coronary artery without angina pectoris; I50.82 Biventricular heart failure; K21.9 Gastro-esophageal reflux disease without esophagitis; Z79.899 Other long term (current) drug therapy; Z99.2 Dependence on renal dialysis; Z88.1 Allergy status to other antibiotic agents; Z86.000 Personal history of in-situ neoplasm of breast; Z90.5 Acquired absence of kidney; Z79.82 Long term (current) use of aspirin; Z90.710 Acquired absence of both cervix and uterus; Z82.5 Family history of asthma and other chronic lower respiratory diseases; Z82.49 Family history of ischemic heart disease and other diseases of the circulatory system; Z80.3 Family history of malignant neoplasm of breast; Z80.0 Family history of malignant neoplasm of digestive organs; Z85.3 Personal history of malignant neoplasm of breast; Z85.118 Personal history of other malignant neoplasm of bronchus and lung
CPT/HCPCS: 36415; 36600; 71045; 74176; 80048; 80053; 81001; 82805; 83735; 83880; 84100; 84443; 85025; 87340; 90935; 93306; 93970; 94640; 96365; 96375; 99291; 99292; G0378; J1956; J2405; P9047